=== PATIENT | male | born 1935 | race Caucasian/White ===

== ENCOUNTER 2023-07-07 16:29 | Inpatient (IN) ==
--- OUTSIDE RECORDS SUMMARY | 2023-07-07 16:37 | External Medical Summary | Summary of Care ---
Author Name Unknown Organization [facility] Address [address] [place] [address] Phone [phone] Care Team Providers Care Harvest Manager Name Role Phone Naseem Art MD Primary Care Provider + Reason for Visit * Reason Onset Date Comments Med Request 03/11/2023 Encounter Details Date Type Department Care Team Description 03/11/2023 Telephone General Internal Medicine [facility] [address] [facility] [place] [id number] Naseem Art MD 200 [place] [address] Med Request Allergies Active Allergy Reactions Severity Noted Date Comments Pollen Other (Please comment) 10/26/2019 sneezing documented as of this encounter (statuses as of 05/11/2023) Medications Medication Sig Dispensed Refills Start Date End Date Status docusate sodium (COLACE) 100 MG CapsuleIndications:S low transit constipation Take 1 Cap by mouth 3 times a day. 90 Cap 5 12/29/2015 Active Additional Information Patient taking differently:100 mg OralBID (.AM/PM), Reported on 09/04/2022 Acetaminophen 500 MG Oral Tablet (Tylenol)Indications :Primary osteoarthritis of both knees Take 2 Tabs by mouth 2 times a day. 100 Tab 0 04/04/2021 Active Additional Information Patient taking differently:1,000 mg IxpsN4P PRN, Reported on 02/12/2023 Levothyroxine Sodium 150 MCG Oral Tablet (Levoxyl)Indications :Hypothyroidism TAKE 1 TABLET BY MOUTH IN THE MORNING AT LEAST 30 MIN PRIOR TO BREAKFAST OR OTHER MEDS 90 Tablet 3 11/06/2022 Active metFORMIN HCl 500 MG Oral Tablet (Glucophage)Indicati ons:Type 2 diabetes mellitus with hemoglobin A1c goal of less than 7.0% (HCC) TAKE 1 TABLET BY MOUTH WITH BREAKFAST AND 1 WITH SUPPER DIRECTED 180 Tablet 3 03/04/2023 Active Alendronate Sodium 70 MG Oral Tablet (Fosamax)Indications :Age-related osteoporosis without current pathological fracture Take 1 Tablet by mouth once a week. with 8 oz. water 30 minutes before first meal of the day. 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 ICD-10 update of inactive term FAMILY HX-GI MALIGNANCY 01/08/2001 02/19/20 17 POSTABLAT HYPOTHYR NEC 4 History of colonic polyps 2014 Overview: 01/26/2011: diverticulosis, IH, repeat 2016 adenoma 2003, none 2005, repeat 2010 ICD-10 update of inactive term documented as of this encounter (statuses as of 05/11/2023) Immunizations Name Administration Dates Next Due COVID-19 mRNA, LNP-s, No Pre serve, 2-Dose Series (Moderna) 10/06/2020,08/26/2020 COVID-19, mRNA, LNP-s, PF, B ooster, 100mcg/0.5mg (Moderna) 06/12/2021 Covid-19, Mrna, Lnp-s, Pf, B ivalent, 30 Mcg, IM, 12 yrs and above ([employer]) 05/14/2022 H1N1 2009 Influenza, IM 08/24/2009 Pneumococcal Conjugate Vacc, 13 Valent (Prevnar) 05/31/2014 Pneumococcal Polysaccharide PPV23 (Pneumovax) 05/10/2004,01/08/2001 SEASONAL INFLUENZA, PF, 6 M & Above, IM , (FLULAVAL or FLUZONE) 04/02/2020,04/25/2018,04/26/2017 Seasonal Influenza, Quadriva lent Hd (Fluzone Hd) 04/04/2021 Seasonal Influenza, Quadriva lent Hd, 65+ Yrs 05/02/2022 Seasonal Influenza, Quadriva lent, No Preserve, IM 04/18/2016 Seasonal Influenza, Split, I IV3, With Preserve, Inj 04/07/2015,04/20/2014,05/12/2013,04/22,04/06/2011,04/05/2010,04/21/20 09,04/29/2008,05/28/2007,05/15/2006,1 ,05/10/2004,06/10/2003,06/05,06/05/2002,06/11/2001 04/07/2016 Seasonal Influenza, Trivalen t, Adjuvanted, 65+ yrs 04/10/2019 TD, Preservative Free 08/02/2008 TDAP (age 10 and older)(Boostrix) 06/28/2015 Varicella Zoster Vaccine (Adult) 015,05/31/2014(Deferred: Patient Refused) documented as of this encounter Social History Tobacco Use Types Packs/Day Years Used Date Smoking Tobacco: Former Cigarettes 1 20 Q uit: 07/22/1993 Pipe Smokeless Tobacco: Never Alcohol Use Standard Drinks/Week Comments Yes 0 (1 standard drink = 0.6 oz pur e alcohol) occ mixed drinks Alcohol Habits Answer Date Recorded How often do you have a drink containing alcohol ? 2-4 times a month 11/23/2020 How many drinks containing a lcohol do you have on a typical day when you are drinking? 1 or 2 11/23/2020 How often do you have six or more drinks on one occasion? Not asked 11/23/2020 Food Insecurity Answer Date Recorded Within the past 12 months, y ou worried that your food would run out before you got money to buy more. Never true 02/12/2023 Within the past 12 months, t he food you bought just didn't last and you didn't have money to get more. Never true 02/12/2023 Sex Assigned at Date Recorded Male 11/05/2018 1:03 PM E DT Job Start Date Occupation Industry Not on file Not on file Not on file documented as of this encounter Miscellaneous Notes * Telephone Encounter - Izzychristieshahrzad Stein CMA - 05/11/2023 3:25 PM EDT See TE from 03/27/23 patient having memory issues and needs f/u appt with Dr Art * Telephone Encounter - Maranda Talbot LPN - 03/13/2023 11:38 AM EDT Provider to address: n/a Reason for Call: Med Request Contact: Telephone Call Contact Type: Medication Outcome: Patient called. He doesn't have his medicine and will call us back. Total Time including non face to face (minutes): 5 * Telephone Encounter - Luann Cazares CPhT - 03/11/2023 1:57 PM EDT Pt is calling regarding a medication that they had discuss at his visit last week. Pt states he wasnever on the medication before, but he was supposed to start a new one. Pt is unsure of the name ofthe medication. He would like a call back to discuss which medications he should currently be on. Please advise Thank you, Thao Cazares Developer Analyst I [facility] ([facility]) (Formerly Telepharmacy) 03/11/2023,1:59 PM documented in this encounter Plan of Treatment Upcoming Encounters Date Type Specialty Care Team Description 06/22/2023 Office Visit Family Medicine Naseem Art MD [address] [place], [place] [address] 09/24/2023 Office Visit Internal Medicine Naseem Art MD [address] [place] [address] Health Maintenance Due Date Last Done Comments Zoster Vaccines (2 of 3) 07/11/2015 05/16/2015 Depression Screening 03/15/2023 03/15/2022 COVID-19 Vaccine ( season) 2023 05/14/2022, 06/12/2021, 10/06/2020, Additional history exists Influenza Vaccine (FLU shot) (#1) 2023 05/02/2022, 04/04/2021, 04/02/2020, Additional history exists Albumin/Creatinine Ratio 09/04/2023 023, 04/26/2021, 02/23/2020, Additional history exists B-12 09/04/2023 09/04/2022, 02/0 03/2022, 08/29/2020, Additional history exists Diabetic Foot Exam 09/04/2023 09/04/2022, 0 08/30/2021, 08/29/2020, Additional history exists HbA1c 09/04/2023 03/04/2023, 08/22, 03/15/2022, Additional history exists TSH 03/04/2024 03/04/2023, 08/22, 08/30/2021, Additional history exists DIABETES-EYE EXAM 03/27/2024 03/27/2023, , 03/27/2023, Additional history exists DXA Scan 10/08/2024 10/08/2022, 04/21, 05/06/2018, Additional history exists DTaP,Tdap,and Td Vaccines (2 - Td or Tdap) 06/28/2025 06/28/2015, 08/02/2008 Pneumococcal Vaccine: 65+ Years Completed 05/31/2014, 05/10/2004, 01/08/2001 VITAMIN D LEVEL ONCE IN A LIFETIME-USE SMARTSET# [id number] Completed 03/04/2023, 10/30/2018, 05/06/2018, Additional history exists GARDASIL-HPV IMMUNIZATION SERIES Aged Out No longer eligible based on patient's age to complete this topic Hepatitis B Aged Out No longer eligi ble based on patient's age to complete this topic MENINGOCOCCAL (MENACTRA/MENVEO) Aged Out No longer eligible based on patient's age to complete this topic documented as of this encounter Medical Devices Not on filedocumented as of this encounter Care Teams Harvest Manager Relationship Specialty Start Date End Date Naseem Art MD [address] [place] [address], [place] [address] PCP - General Internal Medicine 08/30/21 documented as of this encounter
--- OUTSIDE RECORDS SUMMARY | 2023-07-07 16:37 | External Medical Summary | Summary of Care ---
Author Name Unknown Organization [facility] Address [address] [place] [address] Phone [phone] Care Team Providers Care Ground Wirer Name Role Phone Naseem Art MD Primary Care Provider + Reason for Visit * Reason Onset Date Comments Test Results 03/05/2023 Encounter Details Date Type Department Care Team Description 03/05/2023 Telephone General Internal Medicine [facility] 200 [facility] [place] [address] Naseem Art MD [address] [place] [address] Test Results Allergies Active Allergy Reactions Severity Noted Date Comments Pollen Other (Please comment) 10/26/2019 sneezing documented as of this encounter (statuses as of 03/05/2023) Medications Medication Sig Dispensed Refills Start Date End Date Status docusate sodium (COLACE) 100 MG CapsuleIndications:S low transit constipation Take 1 Cap by mouth 3 times a day. 90 Cap 5 12/29/2015 Active Additional Information Patient taking differently:100 mg OralBID(AM/PM), Reported on 09/04/2022 Acetaminophen 500 MG Oral Tablet (Tylenol)Indications :Primary osteoarthritis of both knees Take 2 Tabs by mouth 2 times a day. 100 Tab 0 04/04/2021 Active Additional Information Patient taking differently:1,000 mg RniwS2P PRN, Reported on 02/12/2023 Levothyroxine Sodium 150 [...] as of this encounter (statuses as of 03/05/2023) Active Problems Problem Noted Date Hx of [...] as of this encounter (statuses as of 03/05/2023) Resolved Problems Problem Noted Date Resolved Date [...] as of this encounter (statuses as of 03/05/2023) Immunizations Name Administration Dates Next Due COVID-19 mRNA, LNP-s, No Pre serve, 2-Dose Series (Moderna) 10/06/2020,08/26/2020 Covid-19 Mrna, Lnp-s, No Pre serve, Booster (Moderna) 06/12/2021 Covid-19, Mrna, Lnp-s, Pf, B ivalent, 30 Mcg, IM, 12 yrs and above (Pfizer) 05/14/2022 H1N1 2009 Influenza, IM 08/24/2009 Pneumococcal Conjugate Vacc, 13 Valent (Prevnar) 05/31/2014 Seasonal Influenza, Quadriva lent Hd (Fluzone Hd) 04/04/2021 Seasonal Influenza, Quadriva lent Hd, 65+ Yrs 05/02/2022 Seasonal Influenza, Quadriva lent, No Preserve, 6 Mons & Above, IM 04/02/2020,04/25/2018,04/26/2017 Seasonal Influenza, Quadriva lent, No Preserve, IM 04/18/2016 Seasonal Influenza, Split, I IV3, With Preserve, Inj 04/07/2015,04/20/2014,05/12/2013,05/19,04/06/2011,04/05/2010,04/21/2009 ,04/29/2008,05/28/2007,05/15/2006 04/07/2016 Seasonal Influenza, Trivalen t, Adjuvanted, 65+ [...] encounter Miscellaneous Notes * Telephone Encounter - Ml Valle LPN - 03/05/2023 1:40 PM EDT Provider to address: n/a Reason for Call: Test Results Contact: Telephone Call Contact Type: Test Results Outcome: Patient made aware and verbalized understanding Total Time including non face to face (minutes): 15 Ml Valle LPN * Telephone Encounter - Ml Valle LPN - 03/05/2023 1:39 PM EDT ----- Message from Naseem Art MD sent at 03/05/2023 9:05 AM EDT ----- TSH is very high. Please confirm he didn't miss doses of thyroid med, is taking every morning on empty stomach 1 hour prior to food and 3 hours prior to any mvi/supplements. Increase levoxyl to 175 mcg and recheck tsh 4 weeks A1c higher, resume metformin as directed, recheck A1c 3 months Vit d a little low, suggest vit d3 1000 IU daily. This is otc, add to med list once aware documented in this encounter Plan of Treatment Upcoming Encounters Date Type Specialty Care Team Description 04/25/2023 Office Visit Dermatology Tawanna Vazquez PA-C [address] [place] [address] [place] [id number] 09/24/2023 Office Visit Internal Medicine Naseem Art MD [address] [place] [address], [place] [address] Health Maintenance Due Date Last Done Comments Zoster Vaccines (2 of 3) 07/11/2015 05/16/2015 *BISPHONATE OR OTHER ACCEPTABLE MEDICATION NEEDED FOR OSTEOPOROSIS (REFER TO SMARTSET #1146) 05/09/2020 DIABETES-EYE EXAM 03/09/2023 03/09/2022, , 03/09/2022, Additional history exists Depression Screening, Annual for Pts 12 and Over 03/15/2023 03/15/2022 Influenza Vaccine (FLU shot) (#1) 2023 05/02/2022, 04/04/2021, 04/02/2020, Additional history exists Albumin/Creatinine Ratio 09/04/2023 023, 04/26/2021, 02/23/2020, Additional history exists B-12 09/04/2023 09/04/2022, 02/0 03/2022, 08/29/2020, Additional history exists DIABETES-FOOT EXAM 09/04/2023 09/04/2022, 0 08/30/2021, 08/29/2020, Additional history exists HbA1c 09/04/2023 03/04/2023, 08/22, 03/15/2022, Additional history exists TSH 03/04/2024 03/04/2023, 08/22, 08/30/2021, Additional history exists DXA Scan 10/08/2024 10/08/2022, 04/21, 05/06/2018, Additional history exists DTaP,Tdap,and Td Vaccines (2 - Td or Tdap) 06/28/2025 06/28/2015, 08/02/2008 Pneumococcal Vaccine: 65+ Years Completed 05/31/2014, 05/10/2004, 01/08/2001 COVID-19 Vaccine Completed 05/14/2022, , 10/06/2020, Additional history exists VITAMIN D LEVEL ONCE IN A LIFETIME-USE SMARTSET# [id number] Completed 03/04/2023, 10/30/2018, 05/06/2018, Additional history exists [...] filedocumented as of this encounter Care Teams Ground Wirer Relationship Specialty Start Date End Date Naseem Art MD [facility] [place] [address] PCP - General Internal Medicine 08/30/21 documented as of this encounter
--- OUTSIDE RECORDS SUMMARY | 2023-07-07 16:37 | External Medical Summary | Summary of Care ---
Author Name Unknown Organization [facility] Address [address] [place] [address] Phone [phone] Care Team Providers Care Lockstitch Shoulder Joiner Name Role Phone Naseem Art MD Primary Care Provider + Reason for Visit * Reason Onset Date Comments FYI 03/27/2023 Encounter Details Date Type Department Care Team Description 03/27/2023 Telephone General Internal Medicine [facility] 200 [facility] [place] [phone] Naseem Art MD [address] [place] [address] FYI Allergies Active Allergy Reactions Severity Noted Date Comments Pollen Other (Please comment) 10/26/2019 sneezing documented as of this encounter (statuses as of 03/27/2023) Medications Medication Sig Dispensed Refills Start Date [...] Active Additional Information Patient taking differently:1,000 mg LilwS1G PRN, Reported on 02/12/2023 Levothyroxine Sodium 150 [...] as of this encounter (statuses as of 03/27/2023) Active Problems Problem Noted Date Hx of [...] as of this encounter (statuses as of 03/27/2023) Resolved Problems Problem Noted Date Resolved Date [...] as of this encounter (statuses as of 03/27/2023) Immunizations Name Administration Dates Next Due COVID-19 mRNA, LNP-s, No Pre serve, 2-Dose Series (Moderna) 10/06/2020,08/26/2020 Covid-19 Mrna, Lnp-s, No Pre serve, Booster (Moderna) 06/12/2021 Covid-19, Mrna, Lnp-s, Pf, B ivalent, 30 Mcg, IM, 12 yrs and above (Pfizer) 05/14/2022 H1N1 2009 Influenza, IM 08/24/2009 Pneumococcal Conjugate Vacc, 13 Valent (Prevnar) 05/31/2014 Seasonal Influenza, PF, 6 mo ns & Above, IM , (Flulaval) 04/02/2020,04/25/2018,04/26/2017 Seasonal Influenza, Quadriva lent Hd (Fluzone [...] encounter Miscellaneous Notes * Telephone Encounter - Rosalba Lai RN - 03/27/2023 4:41 PM EDT Call back from Rosa with protective services Reviewed above information She states there are no options due to pt being oriented Reviewed with Dr. Wbeber He reports pt was not agreeable to taxi service to be set up [place], Would you please be able to offer pt CM services? Possibly [employer] and [employer] referrals? Thank you! Sending to Dr. Webber and Dr. Art as well * Telephone Encounter - Rosalba Lai RN - 03/27/2023 4:23 PM EDT Timothy and Dr. Webber presented issue to this CM Discussed taxi service, but vehicle would be left here at clinic Pt has no nearby relatives or supports Advised pt could be referred to CM for non-emergent issues, follow up regarding any medical and social needs Call to [facility] protective services at [phone], radio division captain will call CM right back * Telephone Encounter - Anabella Lopez LPN - 03/27/2023 3:36 PM EDT FYI: Patient at office today to see [facility] as a new patient, patient was brought by two staff members from [facility] due to patient getting lost. He is not from the area and was not sure where to findthe office. Patient was brought down to Family Practice due to concern for confusion. Spoke with patient in detail he was alert and oriented, able to tell me where he was, who he was, his and who his PCP was. He understood that he got lost and explained he has never been to this area before. He was able totell me that he was here to see the eye doctor because he was having floaters in his R eye. Patientdid urinate in his pants, explained that he normally carries a urinal with him everywhere because when he has to go he must do it at that moment or he will pee in his pants. Denies urinary urgency, pressure, burning. Only reports some incontinence. BP: 166/94 (patient states he was very overwhelmed from getting lost and was worked up) HR: 84 regular T: 97.4 BS: [address] [place] [address] Art reports patient did just move for the first time in 30 years and not good with directions. Would like patient scheduled in first available to discuss event. Reported thisto Sheron in [facility] to have patient schedule at check out with Dr. Art. documented in this encounter Plan of Treatment Upcoming Encounters Date Type Specialty Care Team Description 04/25/2023 Office Visit Dermatology Tawanna Vazquez PA-C [address] [place] [address] [place] [address] 06/22/2023 [facility] [address] [facility] [place] [address] 09/24/2023 [facility] 200 [facility] [place] [address] Health Maintenance Due Date Last Done Comments Zoster Vaccines (2 of 3) 07/11/2015 05/16/2015 Depression Screening, Annual for Pts 12 and Over 03/15/2023 03/15/2022 Influenza Vaccine (FLU shot) (#1) 2023 05/02/2022, 04/04/2021, 04/02/2020, Additional history exists Albumin/Creatinine Ratio 09/04/2023 023, 04/26/2021, 02/23/2020, Additional history exists B-12 09/04/2023 09/04/2022, 03/2022, 08/29/2020, Additional history exists Diabetic Foot [...] D LEVEL ONCE IN A LIFETIME-USE SMARTSET# [id number] Completed 03/04/2023, 10/30/2018, 05/06/2018, Additional history exists [...] filedocumented as of this encounter Care Teams Lockstitch Shoulder Joiner Relationship Specialty Start Date End Date Naseem Art MD [address] [place] [address], [place] [address] PCP - General Internal Medicine 08/30/21 documented as of this encounter
--- OUTSIDE RECORDS SUMMARY | 2023-07-07 16:37 | External Medical Summary | Summary of Care ---
Author Name Unknown Organization [facility] Address [address] [place] [address] Phone [phone] Care Team Providers Care Behavioral Geneticist Name Role Phone Naseem Art MD Primary Care Provider + Reason for Visit * Reason Onset Date Comments Med Request 03/11/2023 Encounter Details Date Type Department Care Team Description 03/11/2023 Telephone General Internal Medicine [facility] 200 [facility] [place], [place] [phone] Naseem Art MD [address] [place] [address] Med Request Allergies Active Allergy Reactions Severity Noted Date Comments Pollen Other (Please comment) 10/26/2019 sneezing documented as of this encounter (statuses as of 03/13/2023) Medications Medication Sig Dispensed Refills Start Date [...] Active Additional Information Patient taking differently:1,000 mg [id number] PRN, Reported on 02/12/2023 Levothyroxine Sodium 150 [...] as of this encounter (statuses as of 03/13/2023) Active Problems Problem Noted Date Hx of [...] as of this encounter (statuses as of 03/13/2023) Resolved Problems Problem Noted Date Resolved Date DM type 2 causing eye disease 03/01/2022 DM type 2 with diabetic peripheral neuropathy 08/29/2020 History of colon polyps 04/05/2015 09/04/19 Overview: 02/08/2016: inflammatory polyp sigmoid colon 01/26/2011: [...] as of this encounter (statuses as of 03/13/2023) Immunizations Name Administration Dates Next Due COVID-19 mRNA, LNP-s, No Pre serve, 2-Dose Series (Moderna) 10/06/2020,08/26/2020 Covid-19 Mrna, Lnp-s, No Pre serve, Booster (Moderna) 06/12/2021 Covid-19, Mrna, Lnp-s, Pf, B ivalent, 30 Mcg, IM, 12 yrs and above (Pfizer) 05/14/2022 H1N1 2009 Influenza, IM 08/24/2009 Pneumococcal Conjugate Vacc, 13 Valent (Prevnar) 05/31/2014 Pneumococcal Polysaccharide PPV23 (Pneumovax) 05/10/2004,01/08/2001 Seasonal Influenza, PF, 6 mo ns & [...] encounter Miscellaneous Notes * Telephone Encounter - Maranda Talbot LPN [...] on. Please advise Thank you, Thao Cazares Environmental Sustainability Manager I [facility] ([facility]) (Formerly Telepharm[facility]) 03/11/2023,1:59 PM documented in this encounter Plan of Treatment Upcoming Encounters Date Type Specialty Care Team Description 04/25/2023 Office Visit Dermatology Tawanna Vazquez PA-C [address] [place] [address] [place] [address] 09/24/2023 Office Visit Internal Medicine Naseem Art MD [address] [place] [address] [place] [address] Health Maintenance Due Date Last Done Comments Zoster Vaccines (2 of 3) 07/11/2015 05/16/2015 DIABETES-EYE EXAM 03/09/2023 03/09/2022, , 03/09/2022, Additional history exists Depression Screening, Annual for Pts 12 and Over 03/15/2023 03/15/2022 Influenza Vaccine (FLU shot) (#1) 2023 05/02/2022, 04/04/2021, 04/02/2020, Additional history exists Albumin/Creatinine Ratio 09/04/2023 023, 04/26/2021, 02/23/2020, Additional history exists B-12 09/04/2023 09/04/2022, 03/2022, 08/29/2020, Additional history exists DIABETES-FOOT EXAM [...] D LEVEL ONCE IN A LIFETIME-USE SMARTSET# [id number] Completed 03/04/2023, 10/30/2018, 05/06/2018, Additional history exists [...] filedocumented as of this encounter Care Teams Behavioral Geneticist Relationship Specialty Start Date End Date Naseem Art MD [address] [place] [address], [place] [address] PCP - General Internal Medicine 08/30/21 documented as of this encounter
--- OUTSIDE RECORDS SUMMARY | 2023-07-07 16:37 | External Medical Summary | Summary of Care ---
Author Name Unknown Organization [facility] Address [address] [place] [address] Phone [phone] Care Team Providers Care Dean For Student Affairs Name Role Phone Naseem Art MD Primary Care Provider + Reason for Visit * Reason Onset Date Comments Med Request 03/11/2023 Encounter Details Date Type Department Care Team Description 03/11/2023 Telephone General Internal Medicine [facility] [address] [facility] [place], [place] [id number] Naseem Art MD [address] [place] [address] Med Request Allergies Active Allergy Reactions Severity Noted Date Comments Pollen Other (Please comment) 10/26/2019 sneezing documented as of this encounter (statuses as of 03/11/2023) Medications Medication Sig Dispensed Refills Start Date [...] Active Additional Information Patient taking differently:1,000 mg [id number] PRN, Reported on 02/12/2023 Levothyroxine Sodium 150 [...] as of this encounter (statuses as of 03/11/2023) Active Problems Problem Noted Date Hx of [...] as of this encounter (statuses as of 03/11/2023) Resolved Problems Problem Noted Date Resolved Date [...] as of this encounter (statuses as of 03/11/2023) Immunizations Name Administration Dates Next Due COVID-19 [...] encounter Miscellaneous Notes * Telephone Encounter - Luann Cazares, advanced quality engineer - 03/11/2023 1:57 PM EDT Pt is [...] on. Please advise Thank you, Thao Cazares [facility] ([facility]) 03/11/2023,1:59 PM documented in this encounter Plan of Treatment Upcoming Encounters Date Type Specialty Care Team Description 04/25/2023 Office Visit Dermatology Tawanna Vazquez PA-C [address] [place] [address] [place] [phone] 09/24/2023 Office Visit Internal Medicine Naseem Art MD [address] [place] [address] [place] [address] Health Maintenance Due Date Last Done Comments Zoster Vaccines (2 of 3) 07/11/2015 05/16/2015 DIABETES-EYE EXAM 03/09/2023 03/09/2022, , 03/09/2022, Additional history exists Depression Screening, Annual for Pts 12 and Over 03/15/2023 03/15/2022 Influenza Vaccine (FLU shot) (#1) 2023 05/02/2022, 04/04/2021, 04/02/2020, Additional history exists Albumin/Creatinine Ratio 09/04/2023 023, 04/26/2021, 02/23/2020, Additional history exists B-12 09/04/2023 09/04/2022, 02/03/2022, 08/29/2020, Additional history exists DIABETES-FOOT EXAM 09/04/2023 [...] D LEVEL ONCE IN A LIFETIME-USE SMARTSET# [id number] Completed 03/04/2023, 10/30/2018, 05/06/2018, Additional history exists [...] filedocumented as of this encounter Care Teams Dean For Student Affairs Relationship Specialty Start Date End Date Naseem Art MD [address] [place] [address], [place] [address] PCP - General Internal Medicine 08/30/21 documented as of this encounter
--- OUTSIDE RECORDS SUMMARY | 2023-07-07 16:37 | External Medical Summary | Summary of Care ---
Author Name Unknown Organization [facility] Address [address] [place] [address] Phone [phone] Care Team Providers Care Programming Director Name Role Phone Naseem Art MD Primary Care Provider + Reason for Visit * Reason Onset Date Comments FYI 03/27/2023 Encounter Details Date Type Department Care Team Description 03/27/2023 Telephone General Internal Medicine [facility] [address] [facility] [place] [phone] Naseem Art MD [address] [place] [address] FYI Allergies Active Allergy Reactions Severity Noted Date Comments Pollen Other (Please comment) 10/26/2019 sneezing documented as of this encounter (statuses as of 03/28/2023) Medications Medication Sig Dispensed Refills Start Date [...] Active Additional Information Patient taking differently:1,000 mg [id number] PRN, Reported on 02/12/2023 Levothyroxine Sodium 150 [...] as of this encounter (statuses as of 03/28/2023) Active Problems Problem Noted Date Hx of [...] as of this encounter (statuses as of 03/28/2023) Resolved Problems Problem Noted Date Resolved Date [...] as of this encounter (statuses as of 03/28/2023) Immunizations Name Administration Dates Next Due COVID-19 mRNA, LNP-s, No Pre serve, 2-Dose Series ([employer]) 10/06/2020,08/26/2020 Covid-19 Mrna, Lnp-s, No Pre serve, Booster ([employer]) 06/12/2021 Covid-19, Mrna, Lnp-s, Pf, B ivalent, 30 Mcg, IM, 12 yrs and above ([employer] 05/14/2022 H1N1 2009 Influenza, IM 08/24/2009 Pneumococcal [...] encounter Miscellaneous Notes * Telephone Encounter - Drea Gaona RN - 03/28/2023 1:04 PM EDT Follow-up Routine Attempted Phone Call First Attempt Call Outcome Unable to Leave Message-mailbox is full Plan To attempt another outreach I will continue to reach out to patient to try to get him scheduled with Dr. Art as well. Thank you for the referral. * Telephone Encounter - Rosalba Lai RN - 03/27/2023 4:41 PM EDT Call back from Rosa with protective services Reviewed above information She states there are no options due to pt being oriented Reviewed with Dr. Webber He reports pt was not agreeable to [...] any medical and social needs Call to [employer] protective services at [phone], fiberglass bonding machine tender will call CM right back * Telephone Encounter - Anabella Lopez LPN - 03/27/2023 3:36 PM EDT FYI: Patient at office today to see Ophth as a new patient, patient was brought by two staff members from [facility] due to patient getting lost. He is [...] HR: 84 regular T: 97.4 BS: [address] Art reports patient did just move for the first time in 30 years and not good with directions. Would like patient scheduled in first available to discuss event. Reported thisto Sheron in [facility] to have patient schedule at check out with Dr. Art. documented in this encounter Plan of Treatment Upcoming Encounters Date Type Specialty Care Team Description 04/25/2023 Office Visit Dermatology Tawanna Vazquez PA-C [address] [place] [address] [place] [address] 06/22/2023 Office Visit Family Medicine Naseem Art MD [address] [facility] [address] 09/24/2023 Office Visit Internal Medicine Naseem Art MD [address] [place] [address] Health Maintenance Due Date Last Done Comments [...] D LEVEL ONCE IN A LIFETIME-USE SMARTSET# [id number] Completed 03/04/2023, 10/30/2018, 05/06/2018, Additional history exists [...] filedocumented as of this encounter Care Teams Programming Director Relationship Specialty Start Date End Date Naseem Art MD [address] [place] [address] PCP - General Internal Medicine 08/30/21 documented as of this encounter
--- OUTSIDE RECORDS SUMMARY | 2023-07-07 16:37 | External Medical Summary ---
Author Name Unknown Address Unknown Organization : Laboratory Report Ordering Provider Test Date Status LUANN BARRAGAN 03/27/2023 15:05:49 Final Observation Date Value Abnormality Reference (Units ) Status Glucose Point of Care 03/27/2023 15:05:49 206 Above high normal 70-120 (mg/dL) Final Performing Location
--- OUTSIDE RECORDS SUMMARY | 2023-07-07 16:37 | External Medical Summary | Summary of Care ---
Author Name Unknown Organization [facility] Address [address] [place] [address] Phone [phone] Care Team Providers Care Traffic Or System Dispatcher Name Role Phone Naseem Art MD Primary Care Provider + Reason for Visit * Reason Comments Eye Problem Encounter Details Date Type Department Care Team Description 03/27/2023 Office Visit Ophthalmology, [place] [facility] [place] [address] Christiano Webber DO [facility] [place] [phone] Visual distortions of shape and size* Allergies Active Allergy Reactions Severity Noted Date Comments Pollen Other (Please comment) 10/26/2019 sneezing documented as of this encounter (statuses as of 04/10/2023) Medications Medication Sig Dispensed Refills Start Date [...] Active Additional Information Patient taking differently:1,000 mg [id number] PRN, Reported on 02/12/2023 Levothyroxine Sodium 150 [...] as of this encounter (statuses as of 04/10/2023) Active Problems Problem Noted Date Hx of [...] as of this encounter (statuses as of 04/10/2023) Resolved Problems Problem Noted Date Resolved Date [...] as of this encounter (statuses as of 04/10/2023) Immunizations Name Administration Dates Next Due COVID-19 [...] on file documented as of this encounter Progress Notes * Christiano Webber, DO - 03/27/2023 3:28 PM EDT 03/27/2023 [facility] Note HPI: Rajesh Jett is a 87 year old pt who presents to the eye clinic today as a new patient tome for evaluation. 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 Base Eye Exam Visual Acuity (Snellen - Linear) Right Left Dist cc 20/40 -2 LP Tonometry (Tonopen, 3:19 PM) Right Left Pressure 19 17 Pupils Pupils Dark Light Shape React APD Right PERRL 4 3 Round Brisk None Left PERRL 4 3 Round Brisk None Visual Pinzon (Counting fingers) Right Left Full Restrictions Total superior temporal, inferior temporal, superior nasal, inferior nasal deficiencies Slit Lamp and Fundus Exam External Exam Right Left External Normal Normal Slit Lamp Exam Right Left Lids/Lashes Normal Normal Conjunctiva/Sclera White and quiet White and quiet Cornea Clear Clear Anterior Chamber Deep and quiet Deep and quiet Iris Round and reactive Round and reactive Lens Posterior chamber intraocular lens Posterior chamber intraocular lens Fundus Exam Right Left Vitreous Normal Posterior vitreous detachment Disc Normal Normal C/D Ratio 0.3 0.25 Macula Drusen Drusen Vessels Normal Normal Periphery Nevus 1.5 dd without orange pigment just inferiornasal to optic nerve Normal Date: 03/27/23 OCT RNFL: OD - 101, Full OS - 73, S thinning - poor quality Macula: OD - Drusen, no changes OS - Drusen, no changes, fovea off center A/P: Vision loss, left eye -Light perception only vision in left eye w/o rAPD and exam evidence to explain severity of vision loss Patient adamant floater in left eye to blame - explained that this is not the case for level of vision loss ?Non-organic vision loss Patient's responses to multiple examination techniques were not sensible. For example, when placinga large white dot in front of the patient with both eyes open on the chart to look at in the distance, he could not describe seeing a white dot. He noted "flickering" lights and pictures on the wall. Overall he is oriented to time, person and place. I do not think he is acutely confused. However I question his safety. I did involve family practice and case management who assisted in attempting toprovide this patient transportation home today for safety. I even offered to pay for transportation. He outright refused. We were instructed by protective services that because he is oriented, no tin tional options were available. Updates to PCP/case management forthcoming. RTC TBD- ivonne carter only or sooner prn. Christiano Webber DO 03/27/23 I spent a total of Greater than 55 mins (exact time 90 mins) on the date of service in preparation,delivery, and documentation of the care provided to Rajesh Jett excluding any time spent in the performance of separately billed services. documented in this encounter Nursing Notes * EUN Edward - 03/27/2023 3:14 PM EDT Pt states he is seeing a floater in his left eye and is now only seeing a creamy bright light. Pt states he has had this problem for about 18 months. Pt is concerned this will happen to his other eye. documented in this encounter Plan of Treatment Upcoming Encounters Date Type Specialty Care Team Description 04/24/2023 Nurse Only Ophthalmology Nurse Handy Mendenhall [address] [place] [address] 04/25/2023 Office Visit Dermatology Tawanna Vazquez PA-C [address] [place] [address] [place] [address] 06/22/2023 Office Visit Family Medicine Naseem Art MD [address] [place] [address] 09/24/2023 Office Visit Internal Medicine Naseem Art MD [address] [place] [address] Health Maintenance Due Date Last Done Comments Zoster Vaccines (2 of 3) 07/11/2015 05/16/2015 Depression Screening 03/15/2023 03/15/2022 Influenza Vaccine (FLU shot) (#1) [...] D LEVEL ONCE IN A LIFETIME-USE SMARTSET# [id number] Completed 03/04/2023, 10/30/2018, 05/06/2018, Additional history exists [...] Not on filedocumented as of this encounter Procedures Procedure Name Priority Date/Time Associated Diagnosis Comments GLUCOSE METER, POINT OF CARE NANY 03/27/2023 3:05 PM EDT documented in this encounter Results * (ABNORMAL) GLUCOSE METER, POINT OF CARE (03/27/2023 3:05 PM EDT) Glucose Meter 206(H) 70 - 120 mg/dL 03/28/2023 8:20 AM EDT [facility] 45-01 Blood 03/27/2023 3:05 PM EDT 03/28/2023 8:20 AM EDT Christiano Webber DO LAB POINT OF CARE TE ST DOCKED DEVICE UNSOLICITED RESULTS [facility] 45-[address] [place] [address] documented in this encounter Visit Diagnoses Diagnosis Visual distortions of shape and size- Primary documented in this encounter Care Teams Traffic Or System Dispatcher Relationship Specialty Start Date End Date Naseem Art MD [address] [place] [address] PCP - General Internal Medicine 08/30/21 documented as of this encounter
--- OUTSIDE RECORDS SUMMARY | 2023-07-07 16:37 | External Medical Summary | Summary of Care ---
Author Name Unknown Organization [facility] Address [address] [facility] [address] Phone [phone] Care Team Providers Care Cryolite Recovery Operator Name Role Phone Naseem Art MD Primary Care Provider + Reason for Visit * Reason Comments Eye Problem Encounter Details Date Type Department Care Team Description 03/27/2023 Office Visit Ophthalmology, [place] 21 [facility] [place] [address] Christiano Webber DO [address] [facility] [place], [place] [phone] Visual distortions of shape and size* Allergies [...] Active Additional Information Patient taking differently:1,000 mg [id number] PRN, Reported on 02/12/2023 Levothyroxine Sodium 150 [...] DO - 03/27/2023 3:28 PM EDT 03/27/2023 [facility] Note HPI: Rajesh Jett is [...] 04/25/2023 Office Visit Dermatology Tawanna Vazquez PA-C [address] [place] [address] [place] [address] 06/22/2023 [facility] [address] [place] [address] 09/24/2023 [facility] [address] [place] [address] Health Maintenance Due Date Last Done Comments [...] D LEVEL ONCE IN A LIFETIME-USE SMARTSET# [id number] Completed 03/04/2023, 10/30/2018, 05/06/2018, Additional history exists [...] Not on filedocumented as of this encounter Visit Diagnoses Diagnosis Visual distortions of shape and size- Primary documented in this encounter Care Teams Cryolite Recovery Operator Relationship Specialty Start Date End Date Naseem Art MD [address] [place] [address] [place] [address] PCP - General Internal Medicine 08/30/21 documented as of this encounter
--- OUTSIDE RECORDS SUMMARY | 2023-07-07 16:37 | External Medical Summary | Summary of Care ---
Author Name Unknown Organization [facility] Address [address] [place] [address] Phone [phone] Care Team Providers Care Resort Keeper Name Role Phone Naseem Hernandez MD Primary Care Provider + Reason for Referral * Evaluate & Treat - Unlimited Visits (Within 30 days (routine)) - Authorized Specialty Diagnoses / Procedures Referred By Contac t Referred To Contact Ophthalmology Diagnoses Type 2 diabetes mellitus with hemoglobin A1c goal of less than 7.0% ([facility]) Naseem Hernandez MD [facility] [place] [id number] Referral ID Status Reason Start Date Expiration Date Visits Requested Visits Authorized [id number] Authorized Specialty Services Required 03/04/2023 999 999 Question Answer Referral Priority Within 30 days (routine) Does patient want glasses or contact check exam included? Yes Comments Diabetic Eye Exam Reason for Visit * Reason Comments Follow Up 6 month follow up. P atient denied any new concerns. Patient states he is currently not taking his medication as directed due to overwhelmed with moving. Encounter Details Date Type Department Care Team Description 03/04/2023 Office Visit General Internal Medicine [place] [facility] [address] [place] [id number] Naseem Hernandez MD [address] [place] [address] Type 2 diabetes mellitus with hemoglobin A1c goal of less than 7.0% ([facility])*; Acquired hypothyroidism; Age-related osteoporosis without current pathological fracture; Diabetic peripheral neuropathy (HCC); Vitreous floaters of left eye; Stress at home Allergies Active Allergy Reactions Severity Noted Date Comments Pollen Other (Please comment) 10/26/2019 sneezing documented as of this encounter (statuses as of 03/05/2023) Medications Medication Sig Dispensed Refills Start Date End Date Status docusate sodium (COLACE) 100 MG CapsuleIndications: Slow transit constipation Take 1 Cap by mouth 3 times a day. 90 Cap 5 12/29/2015 Active Additional Information Patient taking differently:100 mg OralBID(AM/PM), Reported on 09/04/2022 Acetaminophen 500 MG Oral Tablet (Tylenol)Indication s:Primary osteoarthritis of both knees Take 2 Tabs by mouth 2 times a day. 100 Tab 0 04/04/2021 Active Additional Information Patient taking differently:1,000 mg [id number] PRN, Reported on 02/12/2023 Levothyroxine Sodium 150 MCG Oral Tablet (Levoxyl)Indication s:Hypothyroidism TAKE 1 TABLET BY MOUTH IN THE MORNING AT LEAST 30 MIN PRIOR TO BREAKFAST OR OTHER MEDS 90 Tablet 3 11/06/2022 Active metFORMIN HCl 500 MG Oral Tablet (Glucophage)Indicat ions:Type 2 diabetes mellitus with hemoglobin A1c goal of less than 7.0% (HCC) TAKE 1 TABLET BY MOUTH WITH BREAKFAST AND 1 WITH SUPPER DIRECTED 180 Tablet 3 03/04/2023 Active Alendronate Sodium 70 MG Oral Tablet (Fosamax)Indication s:Age-related osteoporosis without current pathological fracture Take 1 Tablet by mouth once a week. with 8 oz. water 30 minutes before first meal of the day. Remain upright for 30 min after taking tablet 4 Tablet 1 03/04/2023 Active DAILY MULTIVITAMIN PO TABSIndications:DM type 2, goal A1c below 7 0 06/30/2009 3 Discontinu ed(Patient preference /discontin uation) VITAMIN D3 1000 UNITS PO CAPS 1 daily 0 3 Discontinu ed(Patient preference /discontin uation) Calcium Carbonate-Vitamin D 500-125 MG-UNIT Oral Tablet Take by mouth daily. 0 04/18/2016 3 Discontinu ed(Patient preference /discontin uation) Sildenafil Citrate (VIAGRA) 25 MG TabletIndications:I mpotence of organic origin take 1/2 tablet by mouth if needed 5 Tab 2 10/04/2016 3 Discontinu ed(Patient preference /discontin uation) aspirin enteric coated 81 MG TBEC Take 1 Tablet by mouth in the morning. 100 Tab 3 12/23/2016 3 Discontinu ed(Patient preference /discontin uation) diphenhydrAMINE HCl (Sleep) 25 MG Oral CapsuleIndications: takes 1/2 capsule at bedtime for sleep Take 12.5 mg by mouth once. Indications: takes 1/2 capsule at bedtime for sleep 0 3 Discontinu ed(Patient preference /discontin uation) RELION ULTRA THIN LANCETS 30G MISCIndications:Typ e 2 diabetes mellitus with hemoglobin A1c goal of less than 7.0% (HCC) USE TO TEST TWICE DAILY Dx Code E11.9 100 Each 1 12/22/2018 3 Discontinu ed(Patient preference /discontin uation) Diclofenac Sodium 1 % External Gel (Voltaren)Indicatio ns:Primary osteoarthritis of both knees Apply to affected areas 1-2 times daily 0 04/04/2021 3 Discontinu ed(Patient preference /discontin uation) Ibuprofen 200 MG Oral Capsule Take 1 Capsule by mouth every 4 hours as needed. 0 3 Discontinu ed(Patient preference /discontin uation) Glucose Blood In Vitro StripIndications:Ty pe 2 diabetes mellitus with hemoglobin A1c goal of less than 7.0% (HCC) USE TO CHECK GLUCOSE ONCE DAILY. 150 Strip 4 07/26/2021 3 Discontinu ed(Patient preference /discontin uation) metFORMIN HCl 500 MG Oral Tablet (Glucophage)Indicat ions:Type 2 diabetes mellitus with hemoglobin A1c goal of less than 7.0% (HCC) TAKE 1 TABLET BY MOUTH WITH BREAKFAST AND 1 WITH SUPPER DIRECTED 180 Tablet 3 10/15/2022 3 Discontinu ed(Refill) documented as of this encounter (statuses as [...] Overview: 01/26/2011: diverticulosis, IH, repeat 2016 adenoma 2002, none 2006, repeat 2010 ICD-10 update of inactive term [...] Pneumococcal Polysaccharide PPV23 (Pneumovax) 05/10/2004,01/08/2001 Seasonal Influenza, Quadriva lent Hd (Fluzone Hd) [...] Q uit: 07/22/1993 Pipe Smokeless Tobacco: Never Tobacco Cessation:Counseling Given: Not Answered Alcohol Use Standard Drinks/Week Comments Yes 0 [...] on file documented as of this encounter Last Filed Vital Signs Vital Sign Reading Time Taken Comments Blood Pressure 110/64 03/04/2023 3:16 PM EDT Pulse 74 03/04/2023 3:16 PM EDT Temperature 36.4 C (97.6 F) 03/04/2023 3:16 PM ED T Respiratory Rate - - Oxygen Saturation 94% 03/04/2023 3:16 PM EDT Inhaled Oxygen Concentration - - Weight 93 kg (205 lb) 03/04/2023 3:16 PM EDT Height 195.6 cm (6' 5") 03/04/2023 3:16 PM EDT Body Mass Index 24.31 03/04/2023 3:16 PM EDT documented in this encounter Progress Notes * Naseem Hernandez MD - 03/04/2023 3:36 PM EDT Chief Complaint Patient presents with Follow Up 6 month follow up. Patient denied any new concerns. Patient states he is currently not taking his medication as directed due to overwhelmed with moving. SUBJECTIVE: Rajesh Jett is a 87 year old male with PMH as below who presents for follow up diabetic neuropathy, DM, hypothyroidism. No cp, sob, juarez. Sadly, his lease was not renewed after 30 years!! Just moved to new residence in [place], still getting used to it. He stopped all meds but levothyroxine. Due to see optho, has chronic floater left eye told nothing to to do. Using cane for abnormal gait, numbness in legs which is chronic. Has a walker if needed. No recent falls. Mood is ok, some stress with move, but handling ok Patient Active Problem List Diagnosis Code History of tobacco use Z87.891 DIVERTICULOSIS OF COLON K57.30 Type 2 diabetes mellitus with hemoglobin A1c goal of less than 7.0% ([facility]) E11.9 Abnormality of gait R26.9 DNR (do not resuscitate) Z66 Hypothyroidism E03.9 Osteoporosis M81.0 Diabetic peripheral neuropathy ([facility]) E11.42 Intermediate stage nonexudative age-related macular degeneration of both eyes H35.3132 Hx of nonmelanoma skin cancer Z85.828 Current Outpatient Medications Medication Sig Dispense Refill docusate sodium (COLACE) 100 MG Capsule Take 1 Cap by mouth 3 times a day. (Patient taking differently: Take 1 Capsule by mouth in the morning and 1 Capsule before bedtime.) 90 Cap 5 Acetaminophen 500 MG Oral Tablet (Tylenol) Take 2 Tabs by mouth 2 times a day. (Patient taking differently: Take 2 Tablets by mouth every 6 hours as needed.) 100 Tab 0 Levothyroxine Sodium 150 MCG Oral Tablet (Levoxyl) TAKE 1 TABLET BY MOUTH IN THE MORNING AT LEAST 30 MIN PRIOR TO BREAKFAST OR OTHER MEDS 90 Tablet 3 metFORMIN HCl 500 MG Oral Tablet (Glucophage) TAKE 1 TABLET BY MOUTH WITH BREAKFAST AND 1 WITH SUPPER DIRECTED 180 Tablet 3 Alendronate Sodium 70 MG Oral Tablet (Fosamax) Take 1 Tablet by mouth once a week. with 8 oz. water 30 minutes before first meal of the day. Remain upright for 30 min after taking tablet 4 Tablet1 No current facility-administered medications for this visit. Review of patient's allergies indicates: Allergen Reactions Pollen Other (Please comment) sneezing Health Maintenance Due Topic Date Due Zoster Vaccines (2 of 3) 07/11/2015 *BISPHONATE OR OTHER ACCEPTABLE MEDICATION NEEDED FOR OSTEOPOROSIS (REFER TO SMARTSET #1146) Never done HbA1c 03/04/2023 DIABETES-EYE EXAM 03/09/2023 Depression Screening, Annual for Pts 12 and Over 03/15/2023 ROS: CONSTITUTIONAL: No fevers, sweats, or chills EYE: No recent significant change in vision PULMONARY: No cough, sputum, or hemoptysis, No wheezing, No rales, No shortness of breath and No recent change in breathing CARDIOVASCULAR: No chest pain, No shortness of breath, No dyspnea on exertion, No orthopnea, No paroxysmal nocturnal dyspnea, No edema, No palpitations and No syncope ALL OTHER SYSTEMS NEGATIVE I reviewed social, PMH, PSH, and family history and updated where needed. Social History Socioeconomic History Marital status: Single Spouse name: Not on file Number of children: 0 Years of education: 16 Highest education level: Not on file Occupational History Occupation: retired from [employer] Tobacco Use Smoking status: Former Packs/day: 1.00 Years: 20.00 Pack years: 20.00 Types: Pipe, Cigarettes Quit date: 07/22/1993 Years since quittin.6 Smokeless tobacco: Never Vaping Use Vaping Use: Never used Substance and Sexual Activity Alcohol use: Yes Comment: occ mixed drinks Drug use: No Sexual activity: Yes Partners: Female Other Topics Concern Service Not Asked Blood Transfusions Not Asked Caffeine Concern Not Asked Occupational Exposure Not Asked Hobby Hazards Not Asked Sleep Concern No Stress Concern Not Asked Weight Concern Not Asked Special Diet Not Asked Back Care Not Asked Exercise Not Asked Bike Helmet Not Asked Seat Belt Yes Self-Exams Not Asked Social History Narrative born in [place], [place], back in [employer] in 1970, retired 1996 Rajesh Trujillo Fernandojessie reports falls or difficulties with ambulation. Please see documentaion 04/18/2011 for history and plan. 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 ICD-10 update of inactive term Past Surgical History: Procedure Laterality Date COLONOSCOPY, DIAGNOSTIC (RECTUM) about 1994 Colonoscopy, normal COLONOSCOPY, DIAGNOSTIC (RECTUM) 01/26/2011 Diverticulosis, IH, repeat in 5 years COLONOSCOPY, DIAGNOSTIC (RECTUM) 02/08/2016 inflammatory tissue on bx, diverticulosis, repeat per PCP/[facility] COLONOSCOPY, SURGERY REFERRAL OP 08/15/2005 4 rectal polyps, all hyperplastic, repeat in 5 years COLORECTAL CANCER SCREEN; COLON 07/22/2002 repeat in 2005, single sub 1.0 cm adenoma found ascending colon, Dr Melvin, [facility] OTHER (INFORMATION) ACT 112 SIGNED 03/09/22 REMOVE CATARACT, INSERT LENS PROSTH 07/22/2013 [place] both eyes REMOVE TONSILS & ADENOIDS, UNDER 12 07/22/1954 Tonsillectomy/Adenoids,<12 Y/O VASC ANKLE BRACHIAL INDEX 09/13/2006 normal Family History Problem Relation Age of Onset Cancer Mother colon and liver Cancer Grandfather (Maternal) bladder cancer Heart Disorder Father Stroke Father TIA's and major stroke Cancer Brother cancer, testicular, lung, smoker OBJECTIVE: PHYSICAL EXAM: BP 110/64 | Pulse 74 | Temp 36.4 C (97.6 F) | Ht 1.956 m (6' 5") | Wt 93 kg (205 lb) | SpO2 94%| BMI 24.31 kg/m | BSA 2.25 m General: alert, healthy and no distress Head: Normocephalic, No masses, lesions, or abnormalities Eye Exam: conjunctiva are pink and non-injected, sclera clear Ears: External ears normal, TM's Normal, mild cerumen bilaterally Heart: regular rate & rhythm, no murmur, no gallops, PMI non-displaced, S-1 normal and S-2 normal Lungs: normal respiratory rate and rhythm, lungs clear to auscultation Psych: normal affect, no flight of ideas or tangential thought, good eye contact, no pressured speech Neuro: stands on own, to table w/o aid, walks with walker wide based gait I reviewed last lipid, gfr, cbc, lft, urine micro, ASSESSMENT: E11.9 Type 2 diabetes mellitus with hemoglobin A1c goal of less than 7.0% ([facility]) (primary encounter diagnosis) E03.9 Acquired hypothyroidism M81.0 Age-related osteoporosis without current pathological fracture E11.42 Diabetic peripheral neuropathy (HCC) H43.392 Vitreous floaters of left eye F43.9 Stress at home PLAN: Type 2 diabetes mellitus with hemoglobin A1c goal of less than 7.0% ([facility]) (Primary) - COMPREHENSIVE METABOLIC PANEL; Future; Expected date: 03/04/2023 - HEMOGLOBIN A1C; Future; Expected date: 03/04/2023 - metFORMIN HCl 500 MG Oral Tablet (Glucophage); TAKE 1 TABLET BY MOUTH WITH BREAKFAST AND 1 WITH SUPPER DIRECTED - OPHTHALMOLOGY(DIABETES-EXTENDED)REFERRAL OP - LDL CHOLESTEROL (DIRECT MEASURE); Future; Expected date: 03/04/2023 Labs today optho soon Resume metformin Acquired hypothyroidism - TSH; Future; Expected date: 03/04/2023 cnt levothyroxine Age-related osteoporosis without current pathological fracture - 25-HYDROXY VITAMIN D; Future; Expected date: 03/04/2023 - Alendronate Sodium 70 MG Oral Tablet (Fosamax); Take 1 Tablet by mouth once a week. with 8 oz. water 30 minutes before first meal of the day. Remain upright for 30 min after taking tablet Discussed last dexa, fall/fx risk, he want to resume The potential side effects of this medication have been discussed with the patient. Call if any significant problems with these are experienced. Diabetic peripheral neuropathy (HCC) Has neurology in past Cont cane, has walker Follow Vitreous floaters of left eye optho as above Stress at home With move, seems handling ok Follow Follow Up: Return in about 6 months (around 09/04/2023), or if symptoms worsen or fail to improve, for Labs Today. | For: Labs Today Naseem Hernandez MD documented in this encounter Nursing Notes * Romie Stein CMA - 03/04/2023 3:12 PM EDT Chief Complaint Patient presents with Follow Up 6 month follow up. Patient denied any new concerns. documented in this encounter Miscellaneous Notes * Addendum Note - Naseem Hernandez MD - 03/05/2023 9:05 AM EDTAddended by: NASEEM HERNANDEZ on: 03/05/2023 09:05 AM Modules accepted: Orders documented in this encounter Plan of Treatment Upcoming Encounters Date Type Specialty Care Team Description 04/25/2023 Office Visit Dermatology Tawanna Vazquez PA-C [address] [place] [address] [place] [address] 09/24/2023 Office Visit Internal Medicine Naseem Hernandez MD [address] [place] [address] [place] [id number] Scheduled Orders Name Type Priority Associated Diagnoses Orde r Schedule TSH Lab Routine Acquired hypothyroidism Expected: 04/05/2023 (Approximate), Expires: 03/05/2024 HEMOGLOBIN A1C Lab Routine Type 2 diabetes mellitus with hemoglobin A1c goal of less than 7.0% (HCC) Expected: 06/05/2023 (Approximate), Expires: 03/05/2024 25-HYDROXY VITAMIN D Lab Routine Age-related osteoporosis without current pathological fracture Expected: 06/05/2023 (Approximate), Expires: 03/05/2024 Scheduled Referrals Name Type Priority Associated Diagnoses Orde r Schedule OPHTHALMOLOGY(DI ABETES-EXTENDED) REFERRAL OP Referral Within 30 days (routine) Type 2 diabetes mellitus with hemoglobin A1c goal of less than 7.0% (HCC) Ordered: 03/04/2023 Health Maintenance Due Date Last Done Comments [...] D LEVEL ONCE IN A LIFETIME-USE SMARTSET# [id number] Completed 03/04/2023, 10/30/2018, 05/06/2018, Additional history exists [...] Not on filedocumented as of this encounter Results * LDL CHOLESTEROL (DIRECT MEASURE) (03/04/2023 3:44 PM EDT) LDL Cholesterol (Direct Measure) 128 <=129 mg/dL 03/05/2023 12:58 AM EDT [facility] Comment: LDL Cholesterol Reference Ranges (mg/dL): <70 Target level for high risk ASCVD patient <100 Optimal for general population 100-129 Near optimal for general population 130-159 Borderline high 160-189 High >=190 Very high Blood Venous blood specimen / Unknown Venipuncture / Unknown 03/04/2023 3:44 PM EDT 03/04/2023 3:45 PM EDT Naseem Hernandez MD LAB BLOOD ORDERA BLES [facility] [address] [place] [address] * 25-HYDROXY VITAMIN D (03/04/2023 3:44 PM EDT) 25-Hydroxy Vitamin D 25 >19 ng/mL 03/05/2023 1:38 AM EDT [facility] Blood Venous blood specimen / Unknown Venipuncture / Unknown 03/04/2023 3:44 PM EDT 03/04/2023 3:45 PM EDT Narrative [facility] - 03/05/2023 1:38 AM EDT Deficient: <20 ng/mL Insufficient: 20-29 ng/mL Recommended/Optimum:30-50 ng/mL Vitamin D intoxication is rare. If suspicious of Vitamin D toxicity, evaluation of serum Calcium and PTH is recommended. Naseem Hernandez MD LAB BLOOD ORDERA BLES Performing Organization Address City/[facility]/ZIP Co de Phone Number [facility] [address] [place] [address] * (ABNORMAL) TSH (03/04/2023 3:44 PM EDT) [facility] TSH 39.80(H) 0.27 - 4.20 uIU/mL 03/05/2023 1:38 AM EDT [facility] Blood Venous blood specimen / Unknown Venipuncture / Unknown 03/04/2023 3:44 PM EDT 03/04/2023 3:45 PM EDT Naseem Hernandez MD LAB BLOOD ORDERA BLES Performing Organization Address [facility] de Phone Number [facility]ATORY [facility] [address] [place] [address] * (ABNORMAL) HEMOGLOBIN A1C (03/04/2023 3:44 PM EDT) [facility] Hemoglobin A1C 7.5(H) 4.0 - 5.6 % 03/05/2023 1:10 AM EDT [facility] Comment:The use of HbA1c to monitor glycemic status is based on normal hemoglobin and HbA composition. This test should not be used in patients with abnormal hemoglobin that affects the half life of the red blood cell or the in vivo glycation rates. Estimated Average Glucose 169(H) <126 mg/dL 03/05/2023 1:10 AM EDT [facility] Blood Venous blood specimen / Unknown Venipuncture / Unknown 03/04/2023 3:44 PM EDT 03/04/2023 3:45 PM EDT Naseem Hernandez MD LAB BLOOD ORDERA BLES Performing Organization Address [facility] Co de Phone Number [facility]ATORY [facility] [address] [place] [address] * (ABNORMAL) COMPREHENSIVE METABOLIC PANEL (03/04/2023 3:44 PM EDT) [facility] BUN 15 6 - 20 mg/dL 03/04/2023 4:[address] Creatinine 1.2 0.6 - 1.2 mg/dL 03/04/2023 4:[address] Estimated Glomerular Filtration Rate 61 >=60 mL/min 03/04/2023 4:42 PM [facility] 56 Comment:eGFR is calculated b ased on the CKD-EPI 2020 equation Sodium 138 135 - 146 mmol/L 03/04/2023 4:[address] Potassium 4.6 3.5 - 5.1 mmol/L 03/04/2023 4:[address] Chloride 100 98 - 107 mmol/L 03/04/2023 4:[address] CO2 27 22 - 32 mmol/L 03/04/2023 4:[address] Anion Gap 11 7 - 15 mmol/L 03/04/2023 4:[address] Glucose 158(H) 70 - 120 mg/dL 03/04/2023 4:[address] Albumin 4.4 3.8 - 5.0 g/dL 03/04/2023 4:[address] AST 28 10 - 50 U/L 03/04/2023 4:[address] Alkaline Phosphatase 65 35 - 130 U/L 03/04/2023 4:[address] Bilirubin, Total 0.3 <=1.2 mg/dL 03/04/2023 4:[address] Calcium 9.5 8.4 - 10.2 mg/dL 03/04/2023 4:[address] Protein 6.4 6.0 - 8.3 g/dL 03/04/2023 4:42 PM [facility] 56 ALT 25 10 - 50 U/L 03/04/2023 4:42 PM [facility] 56 Blood Venous blood specimen / Unknown Venipuncture / Unknown 03/04/2023 3:44 PM EDT 03/04/2023 3:45 PM EDT Naseem Hernandez MD LAB BLOOD ORDERA BLES [facility] [address] [place] [address] [place] [address] documented in this encounter Visit Diagnoses Diagnosis Type 2 diabetes mellitus with hemoglobin A1c goal of less than 7.0% (HCC)- Primary Acquired hypothyroidism Unspecified hypothyroidism Age-related osteoporosis without current pathological fracture Senile osteoporosis Diabetic peripheral neuropathy (HCC) Type II or unspecified type diabetes mellitus with neurological manifestations, not stated as uncontrolled Vitreous floaters of left eye Stress at home Unspecified family circumstance documented in this encounter Care Teams Resort Keeper Relationship Specialty Start Date End Date [facility]em [facility] MD [address] [facility] [address] PCP - General Internal Medicine 08/30/21 documented as of this encounter
--- OUTSIDE RECORDS SUMMARY | 2023-07-07 16:37 | External Medical Summary | Summary of Care ---
Author Name Unknown Organization [facility] Address [address] [place] [address] Phone [phone] Care Team Providers Care Electrical Machinist Name Role Phone Naseem Art MD Primary Care Provider + Encounter Details Date Type Department Care Team Description 04/09/2023 Weigh Machine OperatorBlindstitch Machine Operator Practice [facility] [place] [address] [place] [address] Drea Gaona, PARDEEP Medical home patient encounter* Allergies Active Allergy Reactions Severity Noted Date Comments Pollen Other (Please comment) 10/26/2019 sneezing documented as of this encounter (statuses as of 04/09/2023) Medications Medication Sig Dispensed Refills Start Date [...] Active Additional Information Patient taking differently:1,000 mg [id number] PRN, Reported on 02/12/2023 Levothyroxine Sodium 150 [...] as of this encounter (statuses as of 04/09/2023) Active Problems Problem Noted Date Hx of [...] as of this encounter (statuses as of 04/09/2023) Resolved Problems Problem Noted Date Resolved Date [...] diverticulosis, IH, repeat 2016 adenoma 2003, none 2006, repeat 2010 ICD-10 update of inactive term documented as of this encounter (statuses as of 04/09/2023) Immunizations Name Administration Dates Next Due COVID-19 [...] as of this encounter Progress Notes * Drea Gaona RN - 04/09/2023 2:24 PM EDT Follow-up Routine Attempted Phone Call Third Attempt Call Outcome Unable to Leave Message Plan To send letter documented in this encounter Plan of Treatment Upcoming Encounters Date Type Specialty Care Team Description 04/24/2023 Nurse Only Ophthalmology Abdirashid, Nurse Handy [place] [address] [place] [address] 04/25/2023 Office Visit Dermatology Tawanna Vazquez PA-C [address] [place] [address] [place] [address] 06/22/2023 Office Visit Family Medicine Naseem Art MD 200 [facility] [place] [address] 09/24/2023 [facility] 200 [facility] [place], [place] [address] Health Maintenance Due Date Last Done Comments Zoster Vaccines (2 of 3) 07/11/2015 05/16/2015 Depression Screening 03/15/2023 03/15/2022 Influenza Vaccine (FLU shot) (#1) 2023 05/02/2022, 04/04/2021, 04/02/2020, Additional history exists Albumin/Creatinine Ratio 09/04/2023 023, 04/26/2021, 02/23/2020, Additional history exists B-12 09/04/2023 09/04/2022, 02/03/2022, 08/29/2020, Additional history exists Diabetic Foot Exam [...] D LEVEL ONCE IN A LIFETIME-USE SMARTSET# [id number] Completed 03/04/2023, 10/30/2018, 05/06/2018, Additional history exists [...] as of this encounter Visit Diagnoses Diagnosis Medical home patient encounter- Primary Other specified examination documented in this encounter Care Teams Electrical Machinist Relationship Specialty Start Date End Date Naseem Art MD [address] [place] [address], [place] [address] PCP - General Internal Medicine 08/30/21 documented as of this encounter
--- OUTSIDE RECORDS SUMMARY | 2023-07-07 16:37 | External Medical Summary | Summary of Care ---
Author Name Unknown Organization [facility] Address [address] [place] [address] Phone [phone] Care Team Providers Care Student Ministries Director Name Role Phone Naseem Art MD Primary Care Provider + Encounter Details Date Type Department Care Team (Late st Contact Info) Description 05/31/2023 Local Az Truck DriverRetail Customer Service Specialist Practice [facility] [address] [place] [address] Drea Peres, PARDEEP [address] [place] [address] Medical home patient encounter* Allergies Active Allergy Reactions Criticality Noted Date Comments Pollen Other (Please comment) 10/26/2019 sneezing documented as of this encounter (statuses as of 05/31/2023) Medications Medication Sig Dispensed Refills Start Date [...] Active Additional Information Patient taking differently:1,000 mg [id number] PRN, Reported on 02/12/2023 Levothyroxine Sodium 150 [...] as of this encounter (statuses as of 05/31/2023) Active Problems Problem Noted Date Diagnosed Date Hx of nonmelanoma skin cancer 10/25/2022 Overview: basal cell carcinoma (L cutaneous upper lip 10/11, R medial cheek 10/11) 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 ICD-10 update of inactive term FAMILY HX-GI MALIGNANCY 01/08/200101/21 POSTABLAT HYPOTHYR NEC 12/20 History of colonic polyps Overview: 01/26/2011: diverticulosis, IH, repeat 2016 adenoma 2003, none 2005, repeat 2010 ICD-10 update of inactive term documented as of this encounter (statuses as of 05/31/2023) Immunizations Name Administration Dates Next Due COVID-19 mRNA, LNP-s, No Pre serve, 2-Dose Series (Moderna) 10/06/2020,08/26/2020 COVID-19, mRNA, LNP-s, PF, B ooster, 100mcg/0.5mg (Moderna) 06/12/2021 Covid-19, Mrna, Lnp-s, Pf, B ivalent, 30 Mcg, IM, 12 yrs and above (Pfizer) 05/14/2022 H1N1 2009 Influenza, IM 08/24/2009 Pneumococcal Conjugate Vacc, 13 Valent (Prevnar) 05/31/2014 SEASONAL INFLUENZA, PF, 6 M & Above, [...] oz pur e alcohol) occ mixed drinks AUDIT-C Answer Date Recorded Q1: How often do you have a drink containing alc ohol? 2-4 times a month 11/23/2020 Q2: How many drinks containi ng alcohol do you have on a typical day when you are drinking? 1 or 2 11/23/2020 Q3: How often do you have si x or more drinks on one occasion? Not asked 11/23/2020 PHQ-2 Answer Date Recorded PHQ Adult Total Score 0 03/15/2022 Hunger Vital Sign Answer Date Recorded Within the past 12 months, y ou worried that your food would run out before you got the money to buy more. Never true 02/13/20 23 Within the past 12 months, t he food you bought just didn't last and you didn't have money to get more. Never true 02/12/2023 Sex and Gender Information Value Date Recorded Sex Assigned at Male 11/05/2018 1:03 PM EDT Gender Identity Male 11/05/2018 1:03 PM EDT Sexual Orientation Straight 11/05/2018 1: 03 PM EDT Job Start Date Occupation Industry Not on file Not on file Not on file documented as of this encounter Progress Notes * Drea Peres RN - 05/31/2023 11:03 AM EST Follow-up Routine Attempted Phone Call First Attempt Call Outcome Unable to Leave Message Plan To attempt another outreach documented in this encounter Plan of Treatment Upcoming Encounters Date Type Department Care Team (Late st Contact Info) Description 06/22/2023 1:00 PM EST Office Visit Family Practice [facility] [address] [place] [address] Naseem Art MD 200 [facility] [place], [place] [address] 09/24/2023 3:00 PM EST Office Visit General Internal Medicine [facility] 200 [facility] [place] [address] Naseem Art MD 200 [facility] [place] [address] Health Maintenance Due Date Last Done Comments Hepatitis B (1 of 3 - Risk 3-dose series) 1996 Zoster Vaccines (2 of 3) 07/11/2015 05/16/2015 Depression Screening 03/15/2023 03/15/2022 COVID-19 Vaccine ( season) 2023 05/14/2022, 06/12/2021, 10/06/2020, Additional history exists Influenza Vaccine (FLU shot) (#1) 2023 05/02/2022, 04/04/2021, 04/02/2020, Additional history exists Albumin/Creatinine Ratio 09/04/20232 023, 04/26/2021, 02/23/2020, Additional history exists B-12 09/04/2023 09/04/2022, 02/0 03/2022, 08/29/2020, Additional history exists Diabetic Foot Exam 09/04/2023 09/04/2022, 0 08/30/2021, 08/29/2020, Additional history exists HbA1c 09/04/2023 03/04/2023, 08/22, 03/15/2022, Additional history exists TSH 03/04/2024 03/04/2023, 08/22, 08/30/2021, Additional history exists Diabetic Eye Exam 03/27/2024 03/27/2023, , 03/27/2023, Additional history exists DXA Scan 10/08/2024 10/08/2022, 04/21, 05/06/2018, Additional history exists DTaP,Tdap,and Td Vaccines (2 - Td or Tdap) 06/28/2025 06/28/2015, 08/02/2008 Pneumococcal Vaccine: 65+ Years Completed 05/31/2014, 05/10/2004, 01/08/2001 VITAMIN D LEVEL ONCE IN A LIFETIME-USE SMARTSET# [id number] Completed 03/04/2023, 10/30/2018, 05/06/2018, Additional history exists [...] examination documented in this encounter Care Teams Student Ministries Director Relationship Specialty Start Date End Date Naseem Art MD 200 [facility] [address] PCP - General Internal Medicine 08/30/21 documented as of this encounter
--- OUTSIDE RECORDS SUMMARY | 2023-07-07 16:37 | External Medical Summary | Summary of Care ---
Author Name Unknown Organization [facility] Address [address] [facility] [address] Phone [phone] Care Team Providers Care Concrete Pipe Making Machine Operator Name Role Phone Naseem Art MD Primary Care Provider + Reason for Visit * Reason Onset Date Comments Scheduling 04/01/2023 Encounter Details Date Type Department Care Team Description 04/01/2023 Telephone OphthalmologyEdgardo 21 [facility] [place] [address] Christiano Webber DO [facility] [place] [address] Scheduling Allergies Active Allergy Reactions Severity Noted Date Comments Pollen Other (Please comment) 10/26/2019 sneezing documented as of this encounter (statuses as of 04/01/2023) Medications Medication Sig Dispensed Refills Start Date [...] Active Additional Information Patient taking differently:1,000 mg [id number] PRN, Reported on 02/12/2023 Levothyroxine Sodium 150 [...] as of this encounter (statuses as of 04/01/2023) Active Problems Problem Noted Date Hx of [...] as of this encounter (statuses as of 04/01/2023) Resolved Problems Problem Noted Date Resolved Date [...] as of this encounter (statuses as of 04/01/2023) Immunizations Name Administration Dates Next Due COVID-19 [...] encounter Miscellaneous Notes * Telephone Encounter - SARITA Levine - 04/01/2023 1:37 PM EDT Multiple attempts made to contact patient - goes straight to voicemail but voicemail box is full sono ability to leave message. Letter mailed to patient's home with appointment details on 04/24 @ 10:30am with nurse for visual field per Dr. Webber @ [facility]. Patient's eye's will NOT bedilated at this visit. SARITA Levine 04/01/2023 1:38 PM documented in this encounter Plan of Treatment Upcoming Encounters Date Type Specialty Care Team Description 04/04/2023 Home Visit Family Medicine Drea Yee, Community Health Site Director [address] [place] [address] 04/24/2023 Nurse Only Ophthalmology Abdirashid, Nurse Oph Enma [address] [place] [address] 04/25/2023 Office Visit Dermatology Tawanna Vazquez PA-C [address] [place] [address] [place] [address] 06/22/2023 Office Visit Family Medicine Naseem Art MD 200 [place] [address] 09/24/2023 Office Visit Internal Medicine Naseem Art MD 200 [place] [address] Health Maintenance Due Date Last Done Comments [...] D LEVEL ONCE IN A LIFETIME-USE SMARTSET# [id number] Completed 03/04/2023, 10/30/2018, 05/06/2018, Additional history exists [...] filedocumented as of this encounter Care Teams Concrete Pipe Making Machine Operator Relationship Specialty Start Date End Date Naseem Art MD [address] [place] [address], [place] [address] PCP - General Internal Medicine 08/30/21 documented as of this encounter
--- OUTSIDE RECORDS SUMMARY | 2023-07-07 16:37 | External Medical Summary | Summary of Care ---
Author Name Unknown Organization [facility] Address [address] [place] [address] Phone [phone] Care Team Providers Care Transfusion Nurse Name Role Phone Naseem Art MD Primary Care Provider + Reason for Visit * Reason Onset Date Comments Med Request 03/11/2023 Encounter Details Date Type Department Care Team Description 03/11/2023 Telephone General Internal Medicine [facility] 200 [facility] [place], [place] [id number] Naseem Art MD 200 [place] [address] Med Request Allergies Active Allergy Reactions Severity [...] Active Additional Information Patient taking differently:1,000 mg [id number] PRN, Reported on 02/12/2023 Levothyroxine Sodium 150 [...] Notes * Telephone Encounter - Luann Cazares, soda tester - 03/11/2023 1:57 PM EDT Pt is [...] on. Please advise Thank you, Thao Cazares Train Reservation Clerk I [facility] (Former[facility]) 03/11/2023,1:59 PM documented in this encounter Plan of Treatment Upcoming Encounters Date Type Specialty Care Team Description 04/25/2023 Office Visit Dermatology Tawanna Vazquez PA-C [address] [place] [address] [place] [id number] 09/24/2023 Office Visit Internal Medicine Naseem Art MD [address] [place] [address] [place] [address] Health Maintenance Due Date Last Done Comments [...] D LEVEL ONCE IN A LIFETIME-USE SMARTSET# [id number] Completed 03/04/2023, 10/30/2018, 05/06/2018, Additional history exists [...] filedocumented as of this encounter Care Teams Transfusion Nurse Relationship Specialty Start Date End Date Naseem Art MD [address] [place] [address], [place] [address] PCP - General Internal Medicine 08/30/21 documented as of this encounter
--- OUTSIDE RECORDS SUMMARY | 2023-07-07 16:37 | External Medical Summary | Summary of Care ---
Author Name Unknown Organization [facility] Address [address] [place] [address] Phone [phone] Care Team Providers Care Rover Tender Name Role Phone Naseem Art MD Primary Care Provider + Encounter Details Date Type Department Care Team (Late st Contact Info) Description 06/07/2023 1:30 PM EST Home Visit Care Coordination and Integration [address] [place] [address] Kateryna Baig, Community Health Manufacture Specialist [address] [place], [place] [id number] Allergies Active Allergy Reactions Criticality Noted Date Comments Pollen Other (Please comment) 10/26/2019 sneezing documented as of this encounter (statuses as of 06/12/2023) Medications Medication Sig Dispensed Refills Start Date [...] Active Additional Information Patient taking differently:1,000 mg [id number] PRN, Reported on 02/12/2023 Levothyroxine Sodium 150 [...] as of this encounter (statuses as of 06/12/2023) Active Problems Problem Noted Date Diagnosed Date [...] as of this encounter (statuses as of 06/12/2023) Resolved Problems Problem Noted Date Diagnosed Date [...] as of this encounter (statuses as of 06/12/2023) Immunizations Name Administration Dates Next Due COVID-19 [...] as of this encounter Progress Notes * Kateryna Baig, Community Health Manufacture Specialist - 06/12/2023 7:57 AM EST Telemedicine visit: No Community Health Manufacture Specialist (BERTO) documentation: Pt. Was not at home. BERTO left garage door technician on door with information to call CM. documented in this encounter Plan of Treatment Upcoming Encounters Date Type Department Care Team (Late st Contact Info) Description 06/22/2023 1:00 PM EST Office Visit Family Practice [facility] 132 [facility] [place] [address] Naseem Art MD 200 [facility] [place] [address] 09/24/2023 3:00 PM EST Office Visit General Internal Medicine [facility] 200 [facility] [place] [address] Naseem Art MD 200 [facility] [place] [address] Health Maintenance Due Date Last Done Comments [...] Additional history exists DXA Scan 10/08/2024 10/08/2022, 09/20, 05/09/2020, Additional history exists DTaP,Tdap,and Td Vaccines (2 - Td or Tdap) 06/28/2025 06/28/2015, 08/02/2008 Pneumococcal Vaccine: 65+ Years Completed 05/31/2014, 05/10/2004, 01/08/2001 VITAMIN D LEVEL ONCE IN A LIFETIME-USE SMARTSET# [id number] Completed 03/04/2023, 10/30/2018, 05/06/2018, Additional history exists GARDASIL-HPV IMMUNIZATION SERIES Aged Out No longer eligible based on patient's age to complete this topic MENINGOCOCCAL (MENACTRA/MENVEO) Aged Out No longer eligible based on patient's age to complete this topic documented as of this encounter Medical Devices Not on filedocumented as of this encounter Care Teams Rover Tender Relationship Specialty Start Date End Date Naseem Art MD 200 [place] [place] [address] PCP - General Internal Medicine 08/30/21 documented as of this encounter
--- OUTSIDE RECORDS SUMMARY | 2023-07-07 16:37 | External Medical Summary | Summary of Care ---
Author Name Unknown Organization [facility] Address [address] [place] [address] Phone [phone] Care Team Providers Care Steel Rigger Name Role Phone Naseem Art MD Primary Care Provider + Reason for Visit * Reason Onset Date Comments Test Results 03/05/2023 Encounter Details Date Type Department Care Team Description 03/05/2023 Telephone General Internal Medicine [facility] 200 [facility] [place] [address] Naseem Art MD 200 [place] [address] Test Results Allergies Active Allergy Reactions Severity [...] Active Additional Information Patient taking differently:1,000 mg [id number] PRN, Reported on 02/12/2023 Levothyroxine Sodium 150 [...] encounter Miscellaneous Notes * Telephone Encounter - Romie Stein CMA - 03/05/2023 1:44 PM EDT Entered in error * Telephone Encounter - Romie Stein CMA - 03/05/2023 1:42 PM EDT ----- Message from Naseem Art [...] Office Visit Dermatology Tawanna Vazquez PA-C [address] [place] [address] [place] [address] 09/24/2023 Office Visit Internal Medicine Naseem Art MD [address] [place] [address] [place] [address] Health Maintenance Due Date Last Done Comments [...] D LEVEL ONCE IN A LIFETIME-USE SMARTSET# [id number] Completed 03/04/2023, 10/30/2018, 05/06/2018, Additional history exists [...] filedocumented as of this encounter Care Teams Steel Rigger Relationship Specialty Start Date End Date Naseem Art MD 200 [place] [address] PCP - General Internal Medicine 08/30/21 documented as of this encounter
--- OUTSIDE RECORDS SUMMARY | 2023-07-07 16:38 | External Medical Summary ---
Author Name Unknown Address Unknown Organization K01:LABORATORY [facility] - [address] [place] [address] Laboratory Report Ordering Provider Test Date Status DAVID BAIRD 03/04/2023 15:44:53 Final Observation Date Value Abnormality Reference (Units ) Status LDL, (direct) 03/04/2023 15:44:53 128 <=129 (mg/dL) Final LDL Cholesterol Reference Ra nges (mg/dL):
<70 Target level for high risk ASCVD patient
<100 Optimal for general population
100-129 Near optimal for general population
130-159 Borderline high
160-189 High
>=190 Very high Performing Location LABORATORY [facility] - [address] [place] [address]
--- OUTSIDE RECORDS SUMMARY | 2023-07-07 16:38 | External Medical Summary | Summary of Care ---
Author Name Unknown Organization [facility] Address [address] [place] [address] Phone [phone] Care Team Providers Care Buttermilk Drier Operator Name Role Phone Naseem Art MD Primary Care Provider + Reason for Visit * Reason Comments Follow Up The pt stated he is here to follow up about recent test results. Encounter Details Date Type Department Care Team Description 02/12/2023 Office Visit General Internal Medicine [facility] [address] [place] [address] Yahaira Reynoso MD [address] [place] [address] Type 2 diabetes mellitus with hemoglobin A1c goal of less than 7.0% ([facility])*; Hx of nonmelanoma skin cancer; Other specified hypothyroidism Allergies Active Allergy Reactions Severity Noted Date Comments Pollen Other (Please comment) 10/26/2019 sneezing documented as of this encounter (statuses as of 02/12/2023) Medications Medication Sig Dispensed Refills Start Date End Date Status DAILY MULTIVITAMIN PO TABSIndications:DM type 2, goal A1c below 7 0 06/30/2009 Active VITAMIN D3 1000 UNITS PO CAPS 1 daily 0 Active docusate sodium (COLACE) 100 MG CapsuleIndications:S low transit constipation Take 1 Cap by mouth 3 times a day. 90 Cap 5 12/29/2015 Active Additional Information Patient taking differently:100 mg OralBID(AM/PM), Reported on 09/04/2022 Calcium Carbonate-Vitamin D 500-125 MG-UNIT Oral Tablet Take by mouth daily. 0 04/18/2016 Active Sildenafil Citrate (VIAGRA) 25 MG TabletIndications:Im potence of organic origin take 1/2 tablet by mouth if needed 5 Tab 2 10/04/2016 Active aspirin enteric coated 81 MG TBEC Take 1 Tablet by mouth in the morning. 100 Tab 3 12/23/2016 Active diphenhydrAMINE HCl (Sleep) 25 MG Oral CapsuleIndications:t akes 1/2 capsule at bedtime for sleep Take 12.5 mg by mouth once. Indications: takes 1/2 capsule at bedtime for sleep 0 Active RELION ULTRA THIN LANCETS 30G MISCIndications:Type 2 diabetes mellitus with hemoglobin A1c goal of less than 7.0% (HCC) USE TO TEST TWICE DAILY Dx Code E11.9 100 Each 1 12/22/2018 Active Additional Information Patient not taking.Reported on 02/12/2023 Diclofenac Sodium 1 % External Gel (Voltaren)Indication s:Primary osteoarthritis of both knees Apply to affected areas 1-2 times daily 0 04/04/2021 Active Acetaminophen 500 MG Oral Tablet (Tylenol)Indications :Primary osteoarthritis of both knees Take 2 Tabs by mouth 2 times a day. 100 Tab 0 04/04/2021 Active Additional Information Patient taking differently:1,000 mg [id number] PRN, Reported on 02/12/2023 Ibuprofen 200 MG Oral Capsule Take 1 Capsule by mouth every 4 hours as needed. 0 Active Glucose Blood In Vitro StripIndications:Typ e 2 diabetes mellitus with hemoglobin A1c goal of less than 7.0% (HCC) USE TO CHECK GLUCOSE ONCE DAILY. 150 Strip 4 07/26/2021 Active Additional Information Patient not taking.Reported on 02/12/2023 metFORMIN HCl 500 MG Oral Tablet (Glucophage)Indicati ons:Type 2 diabetes mellitus with hemoglobin A1c goal of less than 7.0% (HCC) TAKE 1 TABLET BY MOUTH WITH BREAKFAST AND 1 WITH SUPPER DIRECTED 180 Tablet 3 10/15/2022 Active Additional Information Patient not taking.Reported on 02/12/2023 Levothyroxine Sodium 150 MCG Oral Tablet (Levoxyl)Indications :Hypothyroidism TAKE 1 TABLET BY MOUTH IN THE MORNING AT LEAST 30 MIN PRIOR TO BREAKFAST OR OTHER MEDS 90 Tablet 3 11/06/2022 Active documented as of this encounter (statuses as of 02/12/2023) Active Problems Problem Noted Date Hx of [...] Diabetes Taxonomy. ICD-10 update of inactive term DIVERTICULOSIS OF COLON 10/16/2005 Advance directive on file 11/27/2004 Overview: 05/19/2012: POLST form signed History of tobacco use Overview: 20 pack years, stopped in 1993 Abnormality of gait documented as of this encounter (statuses as of 02/12/2023) Resolved Problems Problem Noted Date Resolved Date [...] 15 Overview: ICD-10 update of inactive term Type 2 diabetes mellitus wit h hemoglobin [...] as of this encounter (statuses as of 02/12/2023) Immunizations Name Administration Dates Next Due COVID-19 [...] Sign Reading Time Taken Comments Blood Pressure 122/72 02/12/2023 3:40 PM EDT Pulse 72 02/12/2023 3:40 PM EDT Temperature - - Respiratory Rate - - Oxygen Saturation 97% 02/12/2023 3:40 PM EDT Inhaled Oxygen Concentration - - Weight - - Height 195.6 cm (6' 5") 02/12/2023 3:40 PM EDT Body Mass Index - - documented in this encounter Progress Notes * Yahaira Reynoso MD - 02/12/2023 3:28 PM EDT SUBJECTIVE: Rajesh Jett is a 87 year old male. Chief Complaint Patient presents with Follow Up The pt stated he is here to follow up about recent test results. HPI: Patient made this appointment for discussion of test results. He is status post Mohs surgery in November by Dr. Patiño, discussed that his skin cancer had been treated with this procedure and to keep appointment with Dermatology in April. Last seen in the clinic in August by Son Hernandez PA-C; labs reviewed .States recently he had to move out of his apartment to a different apartment as his landlord would not renew his leads. He is not been taking the metformin, advised to resume the same and keep scheduled appointment with PCP in February TSH Results: Lab Results Component Value Date/Time TSH - [facility] 2.69 09/04/2022 10:25 AM TSH - [facility] 0.27 08/30/2021 03:03 PM TSH - [facility] 1.75 04/26/2021 02:15 PM TSH - [facility] 0.23 (L) 06/03/2020 01:59 PM TSH - [facility] 0.18 (L) 02/23/2020 01:09 PM TSH - [facility] 0.96 05/07/2019 07:30 AM Hemoglobin AIC Results: Lab Results Component Value Date/Time HEMOGLOBIN A1C - [facility] 6.8 (H) 09/04/2022 10:25 AM HEMOGLOBIN A1C - [facility] 6.8 (H) 03/15/2022 09:01 AM HEMOGLOBIN A1C - [facility] 6.8 (H) 08/30/2021 03:03 PM HEMOGLOBIN A1C - [facility] 6.0 (H) 02/23/2020 01:09 PM HEMOGLOBIN A1C - [facility] 6.3 (H) 10/26/2019 10:17 AM HEMOGLOBIN A1C - [facility] 6.0 (H) 05/07/2019 07:30 AM HEMOGLOBIN A1C POCT - [facility] 6.1 (H) 12/23/2020 02:20 PM Patient Active Problem List Diagnosis Code Advance directive on file Z78.9 History of tobacco use Z87.891 DIVERTICULOSIS OF COLON K57.30 Type 2 diabetes mellitus with hemoglobin A1c goal of less than 7.0% (HCC) E11.9 Abnormality of gait R26.9 DNR (do not resuscitate) Z66 Hypothyroidism E03.9 Osteoporosis M81.0 Diabetic peripheral neuropathy (HCC) E11.42 Intermediate stage nonexudative age-related macular degeneration of both eyes H35.3132 Hx of nonmelanoma skin cancer Z85.828 Current Outpatient Medications Medication Sig Dispense Refill VITAMIN D3 1000 UNITS PO CAPS 1 daily docusate sodium (COLACE) 100 MG Capsule Take 1 Cap by mouth 3 times a day. (Patient taking differently: Take 1 Capsule by mouth in the morning and 1 Capsule before bedtime.) 90 Cap 5 Sildenafil Citrate (VIAGRA) 25 MG Tablet take 1/2 tablet by mouth if needed 5 Tab 2 diphenhydrAMINE HCl (Sleep) 25 MG Oral Capsule Take 12.5 mg by mouth once. Indications: takes 1/2 capsule at bedtime for sleep Diclofenac Sodium 1 % External Gel (Voltaren) Apply to affected areas 1-2 times daily Acetaminophen 500 MG Oral Tablet (Tylenol) Take 2 Tabs by mouth 2 times a day. (Patient taking differently: Take 2 Tablets by mouth every 6 hours as needed.) 100 Tab 0 Ibuprofen 200 MG Oral Capsule Take 1 Capsule by mouth every 4 hours as needed. Levothyroxine Sodium 150 MCG Oral Tablet (Levoxyl) TAKE 1 TABLET BY MOUTH IN THE MORNING AT LEAST 30 MIN PRIOR TO BREAKFAST OR OTHER MEDS 90 Tablet 3 DAILY MULTIVITAMIN PO TABS (Patient not taking: Reported on 02/12/2023) 0 Calcium Carbonate-Vitamin D 500-125 MG-UNIT Oral Tablet Take by mouth daily. (Patient not taking: Reported on 02/12/2023) aspirin enteric coated 81 MG TBEC Take 1 Tablet by mouth in the morning. (Patient not taking: Reported on 02/12/2023) 100 Tab 3 RELION ULTRA THIN LANCETS 30G MISC USE TO TEST TWICE DAILY Dx Code E11.9 (Patient not taking: Reported on 02/12/2023) 100 Each 1 Glucose Blood In Vitro Strip USE TO CHECK GLUCOSE ONCE DAILY. (Patient not taking: Reported on 02/12/2023) 150 Strip 4 metFORMIN HCl 500 MG Oral Tablet (Glucophage) TAKE 1 TABLET BY MOUTH WITH BREAKFAST AND 1 WITH SUPPER DIRECTED (Patient not taking: Reported on 02/12/2023) 180 Tablet 3 No current facility-administered medications for this visit. Review of patient's allergies indicates: Allergen Reactions Pollen Other (Please comment) sneezing OBJECTIVE: There were no vitals taken for this visit. Blood pressure 122/72, pulse 72, height 1.956 m (6' 5"), SpO2 97 %. PHYSICAL EXAM: General: alert, healthy, no distress, well developed Heart: regular rhythm and rate,No murmurs. Lungs: lungs clear to auscultation Extremities: no edema ASSESSMENT/PLAN: Type 2 diabetes mellitus with hemoglobin A1c goal of less than 7.0% (HCC) (Primary) Resume metformin Keep fu pcp in feb Hx of nonmelanoma skin cancer Sp MOHS in November Other specified hypothyroidism ct current meds Follow Up: Return if symptoms worsen or fail to improve. (This note was completed using the dictation program Fluency Direct. As such, there may be misspellings, word substitutions, or other variations that should not change the essence of the clinical content of this encounter note. If there is need for further clarification, please direct questions to the provider listed above.) Patient and / caregiver verbalize understanding of above instructions and agrees with plan of care. Yahaira Reynoso MD 02/12/2023 documented in this encounter Plan of Treatment Upcoming Encounters Date Type Specialty Care Team Description 03/04/2023 Office Visit Internal Medicine Naseem Art MD [address] [place] [address] 04/25/2023 Office Visit Dermatology Tawanna Vazquez PA-C [address] [place] [address] [place] [address] Health Maintenance Due Date Last Done Comments Zoster Vaccines (2 of 3) 07/11/2015 05/16/2015 *BISPHONATE OR OTHER ACCEPTABLE MEDICATION NEEDED FOR OSTEOPOROSIS (REFER TO SMARTSET #1146) 05/09/2020 HbA1c 03/04/2023 09/04/2022, 02/20, 08/30/2021, Additional history exists DIABETES-EYE EXAM 03/09/2023 03/09/2022, , 03/09/2022, Additional history exists Depression Screening, Annual for Pts 12 and Over 03/15/2023 03/15/2022 Influenza Vaccine (FLU shot) (#1) 2023 05/02/2022, 04/04/2021, 04/02/2020, Additional history exists Albumin/Creatinine Ratio 09/04/2023 023, 04/26/2021, 02/23/2020, Additional history exists B-12 09/04/2023 09/04/2022, 02/0 03/2022, 08/29/2020, Additional history exists DIABETES-FOOT EXAM 09/04/2023 09/04/2022, 0 08/30/2021, 08/29/2020, Additional history exists TSH 09/04/2023 09/04/2022, 02/0 03/2022, 04/26/2021, Additional history exists DXA Scan 10/08/2024 10/08/2022, 04/21, 05/06/2018, Additional history exists DTaP,Tdap,and Td Vaccines (2 - Td or Tdap) 06/28/2025 06/28/2015, 08/02/2008 Pneumococcal Vaccine: 65+ Years Completed 05/31/2014, 05/10/2004, 01/08/2001 VITAMIN D LEVEL ONCE IN A LIFETIME-USE SMARTSET# [id number] Completed 10/30/2018, 05/06/2018, 02/18/2017, Additional history exists COVID-19 Vaccine Completed 05/14/2022, , 10/06/2020, Additional history exists GARDASIL-HPV IMMUNIZATION SERIES Aged [...] as of this encounter Visit Diagnoses Diagnosis Type 2 diabetes mellitus with hemoglobin A1c goal of less than 7.0% (HCC)- Primary Hx of nonmelanoma skin cancer Personal history of other malignant neoplasm of skin Other specified hypothyroidism documented in this encounter Care Teams Buttermilk Drier Operator Relationship Specialty Start Date End Date Naseem Art MD [address] [place] [address], [place] [address] PCP - General Internal Medicine 08/30/21 documented as of this encounter
--- OUTSIDE RECORDS SUMMARY | 2023-07-07 16:38 | External Medical Summary | Summary of Care ---
Author Name Unknown Organization [facility] Address [address] [place] [address] Phone [phone] Care Team Providers Care Mixer Slagman Name Role Phone Naseem Hernandez MD Primary Care Provider + Reason for Referral * Evaluate & Treat - Unlimited Visits (Within 30 days (routine)) - Authorized Specialty Diagnoses / Procedures Referred By Contac t Referred To Contact Ophthalmology Diagnoses Type 2 diabetes mellitus with hemoglobin A1c goal of less than 7.0% ([facility]) Naseem Hernandez MD [facility] [place] [address] [place] [id number] Referral ID Status Reason Start Date Expiration Date Visits Requested Visits Authorized [id number] Authorized Specialty Services Required 03/04/2023 999 999 [...] State Romulo Mata [address] [place] [address] Naseem Hernandez MD [address] [place] [phone] Type 2 diabetes mellitus with hemoglobin A1c goal of less than 7.0% ([facility])*; Acquired hypothyroidism; Age-related osteoporosis without current pathological [...] Active Additional Information Patient taking differently:1,000 mg [id number] PRN, Reported on 02/12/2023 Levothyroxine Sodium 150 [...] years!! Just moved to new residence in [place], still getting used to it. He stopped [...] A1c goal of less than 7.0% ([facility]) E11.9 Abnormality of gait R26.9 DNR (do not resuscitate) Z66 Hypothyroidism E03.9 Osteoporosis M81.0 Diabetic peripheral neuropathy ([facility]) E11.42 Intermediate stage nonexudative age-related macular degeneration [...] on file Occupational History Occupation: retired from [employer] Tobacco Use Smoking status: Former Packs/day: 1.00 [...] Not Asked Social History Narrative born in [place], [place], back in [employer] in 1970, retired 1996 Rajesh Trujillo Fernandojessie [...] inflammatory tissue on bx, diverticulosis, repeat per PCP/[facility] COLONOSCOPY, SURGERY REFERRAL OP 08/15/2005 4 rectal polyps, all hyperplastic, repeat in 5 years COLORECTAL CANCER SCREEN; COLON 07/22/2002 repeat in 2005, single sub 1.0 cm adenoma found ascending colon, Dr Melvin, [facility] OTHER (INFORMATION) ACT 112 SIGNED 03/09/22 REMOVE [...] A1c goal of less than 7.0% ([facility]) (primary encounter diagnosis) E03.9 Acquired hypothyroidism M81.0 Age-related osteoporosis without current pathological fracture E11.42 Diabetic peripheral neuropathy (HCC) H43.392 Vitreous floaters of left eye F43.9 Stress at home PLAN: Type 2 diabetes mellitus with hemoglobin A1c goal of less than 7.0% ([facility]) (Primary) - COMPREHENSIVE METABOLIC PANEL; Future; Expected [...] 04/25/2023 Office Visit Dermatology Tawanna Vazquez PA-C [address] [place] [address] [place] [address] 09/24/2023 Office Visit Internal Medicine Naseem Hernandez MD [address] [place] [address] [place] [id number] Scheduled Orders Name Type Priority Associated Diagnoses [...] D LEVEL ONCE IN A LIFETIME-USE SMARTSET# [id number] Completed 03/04/2023, 10/30/2018, 05/06/2018, Additional history exists [...] <=129 mg/dL 03/05/2023 12:58 AM EDT [facility] Comment: LDL Cholesterol Reference Ranges (mg/dL): <70 Target level for high risk ASCVD patient <100 Optimal for general population 100-129 Near optimal for general population 130-159 Borderline high 160-189 High >=190 Very high Blood Venous blood specimen / Unknown Venipuncture / Unknown 03/04/2023 3:44 PM EDT 03/04/2023 3:45 PM EDT Naseem Hernandez MD LAB BLOOD ORDERA BLES [facility] [address] [place] [address] * 25-HYDROXY VITAMIN D (03/04/2023 3:44 PM EDT) 25-Hydroxy Vitamin D 25 >19 ng/mL 03/05/2023 1:38 AM EDT [facility] Blood Venous blood specimen / Unknown Venipuncture / Unknown 03/04/2023 3:44 PM EDT 03/04/2023 3:45 PM EDT Narrative [facility] - 03/05/2023 1:38 AM EDT Deficient: <20 ng/mL Insufficient: 20-29 ng/mL Recommended/Optimum:30-50 ng/mL Vitamin D intoxication is rare. If suspicious of Vitamin D toxicity, evaluation of serum Calcium and PTH is recommended. Naseem Hernandez MD LAB BLOOD ORDERA BLES Performing Organization Address City/[facility]/ZIP Co de Phone Number [facility] [address] [place] [address] * (ABNORMAL) TSH (03/04/2023 3:44 PM EDT) [facility] TSH 39.80(H) 0.27 - 4.20 uIU/mL 03/05/2023 1:38 AM EDT [facility] Blood Venous blood specimen / Unknown Venipuncture / Unknown 03/04/2023 3:44 PM EDT 03/04/2023 3:45 PM EDT Naseem Hernandez MD LAB BLOOD ORDERA BLES Performing Organization Address [facility] de Phone Number [facility] [address] [place] [address] * (ABNORMAL) HEMOGLOBIN A1C (03/04/2023 3:44 PM EDT) [facility] Hemoglobin A1C 7.5(H) 4.0 - 5.6 % 03/05/2023 1:10 AM EDT [facility] Comment:The use of HbA1c to monitor glycemic status is based on normal hemoglobin and HbA composition. This test should not be used in patients with abnormal hemoglobin that affects the half life of the red blood cell or the in vivo glycation rates. Estimated Average Glucose 169(H) <126 mg/dL 03/05/2023 1:10 AM EDT [facility] Blood Venous blood specimen / Unknown Venipuncture / Unknown 03/04/2023 3:44 PM EDT 03/04/2023 3:45 PM EDT Naseem Hernandez MD LAB BLOOD ORDERA BLES Performing Organization Address [facility] Co de Phone Number [facility] [address] [place] [address] * (ABNORMAL) COMPREHENSIVE METABOLIC PANEL (03/04/2023 3:44 PM EDT) [facility] BUN 15 6 - 20 mg/dL 03/04/2023 4:[address] Creatinine 1.2 0.6 - 1.2 mg/dL 03/04/2023 4:[address] Estimated Glomerular Filtration Rate 61 >=60 mL/min 03/04/2023 4:42 PM [facility] 56 Comment:eGFR is calculated b ased on the CKD-EPI 2020 equation Sodium 138 135 - 146 mmol/L 03/04/2023 4:[address] Potassium 4.6 3.5 - 5.1 mmol/L 03/04/2023 4:[address] Chloride 100 98 - 107 mmol/L 03/04/2023 4:[address] CO2 27 22 - 32 mmol/L 03/04/2023 4:[address] Anion Gap 11 7 - 15 mmol/L 03/04/2023 4:[address] Glucose 158(H) 70 - 120 mg/dL 03/04/2023 4:[address] Albumin 4.4 3.8 - 5.0 g/dL 03/04/2023 4:[address] AST 28 10 - 50 U/L 03/04/2023 4:[address] Alkaline Phosphatase 65 35 - 130 U/L 03/04/2023 4:[address] Bilirubin, Total 0.3 <=1.2 mg/dL 03/04/2023 4:[address] Calcium 9.5 8.4 - 10.2 mg/dL 03/04/2023 4:[address] Protein 6.4 6.0 - 8.3 g/dL 03/04/2023 4:42 PM [facility] 56 ALT 25 10 - 50 U/L 03/04/2023 4:42 PM [facility] 56 Blood Venous blood specimen / Unknown Venipuncture / Unknown 03/04/2023 3:44 PM EDT 03/04/2023 3:45 PM EDT Naseem Hernandez MD LAB BLOOD ORDERA BLES [facility] [address] [place] [address] [place] [address] documented in this encounter Visit Diagnoses Diagnosis [...] circumstance documented in this encounter Care Teams Mixer Slagman Relationship Specialty Start Date End Date [facility] [address] [facility] [address] PCP - General Internal Medicine 08/30/21 documented as of this encounter
--- OUTSIDE RECORDS SUMMARY | 2023-07-07 16:38 | External Medical Summary | Summary of Care ---
Author Name Unknown Organization [facility] Address [address] [place] [address] Phone [phone] Care Team Providers Care Repair Welder Name Role Phone Naseem Art MD Primary Care Provider + Reason for Referral * Evaluate & Treat - Unlimited Visits (Within 30 days (routine)) - Authorized Specialty Diagnoses / Procedures Referred By Contac t Referred To Contact Ophthalmology Diagnoses Type 2 diabetes mellitus with hemoglobin A1c goal of less than 7.0% ([facility]) Naseem Art MD [facility] [id number] Referral ID Status Reason Start Date Expiration Date Visits Requested Visits Authorized [id number] Authorized Specialty Services Required 03/04/2023 999 999 [...] State Romulo Mata [address] [place] [id number] Naseem Art MD [address] [place] [id number] Type 2 diabetes mellitus with hemoglobin A1c goal of less than 7.0% ([facility])*; Acquired hypothyroidism; Age-related osteoporosis without current pathological fracture; Diabetic peripheral neuropathy (HCC); Vitreous floaters of left eye; Stress at home Allergies Active Allergy Reactions Severity Noted Date Comments Pollen Other (Please comment) 10/26/2019 sneezing documented as of this encounter (statuses as of 03/04/2023) Medications Medication Sig Dispensed Refills Start Date [...] Active Additional Information Patient taking differently:1,000 mg [id number] PRN, Reported on 02/12/2023 Levothyroxine Sodium 150 [...] as of this encounter (statuses as of 03/04/2023) Active Problems Problem Noted Date Hx of [...] as of this encounter (statuses as of 03/04/2023) Resolved Problems Problem Noted Date Resolved Date [...] as of this encounter (statuses as of 03/04/2023) Immunizations Name Administration Dates Next Due COVID-19 [...] in this encounter Progress Notes * Naseem Art MD - 03/04/2023 3:36 PM EDT Chief Complaint Patient presents with Follow Up 6 month follow up. Patient denied any new concerns. Patient states he is currently not taking his medication as directed due to overwhelmed with moving. SUBJECTIVE: Rajesh Jett is a 87 year old male with PMH as below who presents for follow up diabetic neuropathy, DM, hypothyroidism. No cp, sob, ujarez. Sadly, his lease was not renewed after 30 years!! Just moved to new residence in [place], still getting used to it. 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 Please [...] Encounter for ophthalmic examination and evaluation Cyndi Jean Paul, OD Family history of GI malignancy colon [...] inflammatory tissue on bx, diverticulosis, repeat per PCP/[facility] COLONOSCOPY, SURGERY REFERRAL OP 08/15/2005 4 rectal polyps, all hyperplastic, repeat in 5 years COLORECTAL CANCER SCREEN; COLON 07/22/2002 repeat in 2005, single sub 1.0 cm adenoma found ascending colon, Dr Melvin, [facility] OTHER (INFORMATION) ACT 112 SIGNED 03/09/22 [...] hemoglobin A1c goal of less than 7.0% ([facility]) (primary encounter diagnosis) E03.9 Acquired hypothyroidism M81.0 Age-related osteoporosis without current pathological fracture E11.42 Diabetic peripheral neuropathy ([facility]) H43.392 Vitreous floaters of left eye F43.9 Stress at home PLAN: Type 2 diabetes mellitus with hemoglobin A1c goal of less than 7.0% ([facility]) (Primary) - COMPREHENSIVE METABOLIC PANEL; Future; Expected [...] Labs Today. | For: Labs Today Naseem Art MD documented in this encounter Nursing Notes * Romie Stein CMA - 03/04/2023 3:12 PM EDT Chief Complaint Patient presents with Follow Up 6 month follow up. Patient denied any new concerns. documented in this encounter Plan of Treatment Upcoming Encounters Date Type Specialty Care Team Description 04/25/2023 Office Visit Dermatology Tawanna Vazquez PA-C [address] [place] [address] [place] [phone] 09/24/2023 Office Visit Internal Medicine Naseem Art MD [address] [place], [place] [address] [address] Pending Results Name Type Priority Associated Diagnoses Date /Time COMPREHENSIVE METABOLIC PANEL Lab Routine Type 2 diabetes mellitus with hemoglobin A1c goal of less than 7.0% (HCC) 03/04/2023 3:44 PM EDT HEMOGLOBIN A1C Lab Routine Type 2 diabetes mellitus with hemoglobin A1c goal of less than 7.0% (HCC) 03/04/2023 3:44 PM EDT TSH Lab Routine Acquired hypothyroidism 03/04/2023 3:44 PM EDT 25-HYDROXY VITAMIN D Lab Routine Age-related osteoporosis without current pathological fracture 03/04/2023 3:44 PM EDT LDL CHOLESTEROL (DIRECT MEASURE) Lab Routine Type 2 diabetes mellitus with hemoglobin A1c goal of less than 7.0% (HCC) 03/04/2023 3:44 PM EDT Scheduled Orders Name Type Priority Associated Diagnoses Orde r Schedule COMPREHENSIVE METABOLIC PANEL Lab Routine Type 2 diabetes mellitus with hemoglobin A1c goal of less than 7.0% (HCC) Expected: 03/04/2023 (Approximate), Expires: 03/03/2024 HEMOGLOBIN A1C Lab Routine Type 2 diabetes mellitus with hemoglobin A1c goal of less than 7.0% (HCC) Expected: 03/04/2023 (Approximate), Expires: 03/03/2024 TSH Lab Routine Acquired hypothyroidism Expected: 03/04/2023 (Approximate), Expires: 03/03/2024 25-HYDROXY VITAMIN D Lab Routine Age-related osteoporosis without current pathological fracture Expected: 03/04/2023 (Approximate), Expires: 03/03/2024 LDL CHOLESTEROL (DIRECT MEASURE) Lab Routine Type 2 diabetes mellitus with hemoglobin A1c goal of less than 7.0% (HCC) Expected: 03/04/2023 (Approximate), Expires: 03/03/2024 Scheduled Referrals Name Type Priority Associated Diagnoses [...] D LEVEL ONCE IN A LIFETIME-USE SMARTSET# [id number] Completed 10/30/2018, 05/06/2018, 02/18/2017, Additional history exists [...] circumstance documented in this encounter Care Teams Repair Welder Relationship Specialty Start Date End Date Naseem Art MD [address] [place] [address], [place] [address] PCP - General Internal Medicine 08/30/21 documented as of this encounter
--- OUTSIDE RECORDS SUMMARY | 2023-07-07 16:38 | External Medical Summary ---
Author Name Unknown Address Unknown Organization K01:[facility] - [address] [place] [address] Laboratory Report Ordering Provider Test Date Status DAVID BAIRD 03/04/2023 15:44:53 Final Observation Date Value Abnormality Reference (Units ) Status TSH 03/04/2023 15:44:53 39.80 Above high normal 0. 27-4.20 (uIU/mL) Final Performing Location [facility]ATORY [facility] - [address] [place] [address]
--- OUTSIDE RECORDS SUMMARY | 2023-07-07 16:38 | External Medical Summary | Summary of Care ---
Author Name Unknown Organization [facility] Address [address] [place] [address] Phone [phone] Care Team Providers Care Performing Arts Road Manager Name Role Phone Naseem Art MD Primary Care Provider + Reason for Visit * Reason Comments Outpatient Testing Encounter Details Date Type Department Care Team Description 03/04/2023 Laboratory Laboratory [facility] [place] [address] [place] [address] [facility] [address] [place] [address] Type 2 diabetes mellitus with hemoglobin A1c goal of less than 7.0% ([facility]); Acquired hypothyroidism; Age-related osteoporosis without current pathological fracture Allergies Active Allergy Reactions Severity Noted Date [...] Active Additional Information Patient taking differently:1,000 mg [id number] PRN, Reported on 02/12/2023 Levothyroxine Sodium 150 [...] on file documented as of this encounter Plan of Treatment Upcoming Encounters Date Type Specialty Care Team Description 04/25/2023 Office Visit Dermatology Tawanna Vazquez PA-C [address] [place] [address] [place] [phone] 09/24/2023 Office Visit Internal Medicine Naseem Art MD [address] [place] [address] [place] [address] Pending Results Name Type Priority Associated Diagnoses Date /Time COMPREHENSIVE METABOLIC PANEL Lab Routine Type 2 diabetes mellitus with hemoglobin A1c goal of less than 7.0% ([facility]) 03/04/2023 3:44 PM EDT HEMOGLOBIN A1C Lab Routine Type 2 diabetes mellitus with hemoglobin A1c goal of less than 7.0% ([facility]) 03/04/2023 3:44 PM EDT TSH Lab Routine Acquired hypothyroidism 03/04/2023 3:44 PM EDT 25-HYDROXY VITAMIN D Lab Routine Age-related osteoporosis without current pathological fracture 03/04/2023 3:44 PM EDT LDL CHOLESTEROL (DIRECT MEASURE) Lab Routine Type 2 diabetes mellitus with hemoglobin A1c goal of less than 7.0% ([facility]) 03/04/2023 3:44 PM EDT Health Maintenance Due Date Last Done Comments [...] D LEVEL ONCE IN A LIFETIME-USE SMARTSET# [id number] Completed 10/30/2018, 05/06/2018, 02/18/2017, Additional history exists [...] A1c goal of less than 7.0% (HCC) Acquired hypothyroidism Unspecified hypothyroidism Age-related osteoporosis without current pathological fracture Senile osteoporosis documented in this encounter Care Teams Performing Arts Road Manager Relationship Specialty Start Date End Date Naseem Art MD [address] [place] [address], [place] [address] PCP - General Internal Medicine 08/30/21 documented as of this encounter
--- OUTSIDE RECORDS SUMMARY | 2023-07-07 16:38 | External Medical Summary | Summary of Care ---
Author Name Unknown Organization [facility] Address [address] [place] [address] Phone [phone] Care Team Providers Care Machine Operator Picker Name Role Phone Naseem Art MD Primary Care Provider + Reason for Visit * Reason Onset Date Comments Medication Refill 02/11/2023 Encounter Details Date Type Department Care Team Description 02/11/2023 Refill General Internal Medicine [facility] [address] [facility] [place] [address] Naseem Art MD [address] [place] [address] Hypothyroidism Allergies Active Allergy Reactions Severity Noted Date Comments Pollen Other (Please comment) 10/26/2019 sneezing documented as of this encounter (statuses as of 02/11/2023) Medications Medication Sig Dispensed Refills Start Date [...] Code E11.9 100 Each 1 12/22/2018 Active Diclofenac Sodium 1 % External Gel (Voltaren)Indication s:Primary osteoarthritis of both knees Apply to affected areas 1-2 times daily 0 04/04/2021 Active Acetaminophen 500 MG Oral Tablet (Tylenol)Indications :Primary osteoarthritis of both knees Take 2 Tabs by mouth 2 times a day. 100 Tab 0 04/04/2021 Active Ibuprofen 200 MG Oral Capsule Take 1 Capsule by mouth every 4 hours as needed. 0 Active Glucose Blood In Vitro StripIndications:Typ e 2 diabetes mellitus with hemoglobin A1c goal of less than 7.0% (HCC) USE TO CHECK GLUCOSE ONCE DAILY. 150 Strip 4 07/26/2021 Active metFORMIN HCl 500 MG Oral Tablet (Glucophage)Indicati ons:Type 2 diabetes mellitus with hemoglobin A1c goal of less than 7.0% (HCC) TAKE 1 TABLET BY MOUTH WITH BREAKFAST AND 1 WITH SUPPER DIRECTED 180 Tablet 3 10/15/2022 Active Levothyroxine Sodium 150 MCG Oral Tablet (Levoxyl)Indications :Hypothyroidism TAKE 1 TABLET BY MOUTH IN THE MORNING AT LEAST 30 MIN PRIOR TO BREAKFAST OR OTHER MEDS 90 Tablet 3 11/06/2022 Active documented as of this encounter (statuses as of 02/11/2023) Active Problems Problem Noted Date Hx of nonmelanoma skin cancer 10/25/2022 Overview: basal cell carcinoma (L cutaneous upper lip 10/11, R medial cheek 10/11) Intermediate stage nonexudat louise age-related macular degeneration of both eyes 09/04/2022 Diabetic peripheral neuropathy 5 Hypothyroidism 12/20/2013 Osteoporosis 12/20/2013 DNR (do not resuscitate) 05/19/2012 Overview: IMELDA completed 05/19/2012 Type 2 diabetes mellitus with hemoglobin A1c goal of less than 7.0% 05/19/2009 Overview: Per Diabetes Taxonomy. ICD-10 update of inactive term DIVERTICULOSIS OF COLON 10/16/2005 Advance directive on file 11/27/2004 Overview: 05/19/2012: POLST form signed History of tobacco use Overview: 20 pack years, stopped in 1993 Abnormality of gait documented as of this encounter (statuses as of 02/11/2023) Resolved Problems Problem Noted Date Resolved Date [...] as of this encounter (statuses as of 02/11/2023) Immunizations Name Administration Dates Next Due COVID-19 [...] got money to buy more. Never true 04/12/2020 Within the past 12 months, t he food you bought just didn't last and you didn't have money to get more. Never true 04/12/2020 Sex Assigned at Date Recorded Male 11/05/2018 1:03 PM E DT Job Start Date Occupation Industry Not on file Not on file Not on file documented as of this encounter Miscellaneous Notes * Telephone Encounter - Joelle Merida LPN - 02/11/2023 12:51 PM EDT Pending Prescriptions: Disp Refills Levothyroxine Sodium 150 MCG Oral Tablet (*90 Tab*3 Sig: TAKE 1 TABLET BY MOUTH IN THE MORNING AT LEAST 30 MIN PRIOR TO BREAKFAST OR OTHER MEDS * Telephone Encounter - Janina Jovana - 02/11/2023 9:47 AM EDT Did you pend patient's preferred pharmacy and medication before forwarding?yes Pharmacy: [facility] [id number] Pending Prescriptions: Disp Refills Levothyroxine Sodium 150 MCG Oral Tablet *90 Tab*3 Sig: TAKE 1 TABLET BY MOUTH IN THE MORNING AT LEAST 30 MIN PRIOR TO BREAKFAST OR OTHER MEDS Last Visit: 09/04/2022 (in office), Visit date not found (telemedicine) Next Visit: 02/12/2023 If no future appointments scheduled, and last appointment is greater than a year ago, please schedule patient for a follow-up appointment Last date the medication was ordered: 11/06/2022 Is this request for a controlled substance?No Urine Drug Screen:No results found for this or any previous visit. Patient Phone Numbers Labs: Lab Results Component Value Date/Time CREAT 1.0 09/04/2022 10:25 AM CREAT 1.2 02/23/2020 01:09 PM POTASSIUM 4.8 09/04/2022 10:25 AM POTASSIUM 4.7 02/23/2020 01:09 PM TSH 2.69 09/04/2022 10:25 AM TSH 0.23 (L) 06/03/2020 01:59 PM TSH 0.42 08/10/1996 12:29 PM LDLCALC 79 05/07/2019 07:30 AM LDLDIRECT 94 04/26/2021 02:15 PM LDLDIRECT 95 02/23/2020 01:09 PM LDLDIRECT 73 05/31/2014 02:14 PM ALT 21 09/04/2022 10:25 AM ALT 20 02/23/2020 01:09 PM HGBA1C 6.8 (H) 09/04/2022 10:25 AM HGBA1C 6.1 (H) 12/23/2020 02:20 PM HGBA1C 6.0 (H) 02/23/2020 01:09 PM documented in this encounter Plan of Treatment Upcoming Encounters Date Type Specialty Care Team Description 02/12/2023 Office Visit Internal Medicine Yahaira Reynoso MD [address] [place] [address] 03/04/2023 Office Visit Internal Medicine Naseem Art MD [address] [facility] [place] [address] 04/25/2023 Office Visit Dermatology Tawanna Vazquez PA-C [address] [place] [address] [place] [address] Health Maintenance Due Date Last Done Comments [...] D LEVEL ONCE IN A LIFETIME-USE SMARTSET# [id number] Completed 10/30/2018, 05/06/2018, 02/18/2017, Additional history exists [...] as of this encounter Visit Diagnoses Diagnosis Hypothyroidism Unspecified hypothyroidism documented in this encounter Care Teams Machine Operator Picker Relationship Specialty Start Date End Date Naseem Art MD [address] [place] [address], [place] [address] PCP - General Internal Medicine 08/30/21 documented as of this encounter
--- OUTSIDE RECORDS SUMMARY | 2023-07-07 16:38 | External Medical Summary ---
Author Name Unknown Address Unknown Organization K01:[facility] [place] [facility] [address] [facility] [address] Laboratory Report Ordering Provider Test Date Status DAVID BAIRD 03/04/2023 15:44:53 Final Observation Date Value Abnormality Reference (Units ) Status HbA1C 03/04/2023 15:44:53 7.5 Above high normal 4. 0-5.6 (%) Final The use of HbA1c to monitor glycemic status is based on normal hemoglobin and HbA composition. This test should not be used in patients with abnormal hemoglobin that affects the half life of the red blood cell or the in vivo glycation rates. Glucose, estimated average 03/04/2023 15:44:53 169 Above high normal <126 (mg/dL) Fin al Performing Location [facility] [facility] [address] [facility] [address]
--- OUTSIDE RECORDS SUMMARY | 2023-07-07 16:38 | External Medical Summary ---
Author Name Unknown Address Unknown Organization K01:[facility] [place] [address] [place] [address] Laboratory Report Ordering Provider Test Date Status DAVID BAIRD 03/04/2023 15:44:53 Final Deficient: <20 ng/mL
Ins ufficient: 20-29 ng/mL
Recommended/Optimum:30-50 ng/mL

Vitamin D intoxication is rare. If suspicious of Vitamin D toxicity, evaluation of serum Calcium and PTH is recommended. Observation Date Value Abnormality Reference (Units ) Status 25-OH Vitamin D total 03/04/2023 15:44:53 25 >19 (ng/mL) Final Performing Location [facility] [place] [address] [place] [address]
[2023-07-07] MEDS ORDERED: CEFEPIME 2,000 MG in SYRINGE 0 ML IV STA (16:45)
[2023-07-07] MEDS ORDERED: SODIUM CHLORIDE 0.9% 1,000 ML IV ONE ×2 (16:45→18:03)
[2023-07-07] MEDS ORDERED: CEFEPIME 20 ML IV STA (16:46)
--- NOTE | 2023-07-07 16:51 | Emergency Department Note ---
History of Present Illness General Chief complaint: Unresponsive Time Seen by Provider: 07/07/23 16:43 Source: patient, EMS and old records reviewed (From [facility] and has looked up with her ED pharmacist) Mode of arrival: EMS Limitations: no limitations History of Present Illness This patient is a 87-year-old male who has not been seen from since . The neighbors were concerned and when the police arrived he was found unresponsive on the ground. He was confused. He had a temperature of 94. His house was disheveled and smells like urine according to the EMS. His O2 sat was initially low in the 80s but he responded with oxygen they checked a blood sugar in the field was 120. The patient denies any complaints to me. He is sleeping and snoring at times but wakes up and talks and follows commands. No reported trauma Home Medications Medication Instructions Recorded Confirmed Type acetaminophen 500 mg tablet 1,000 mg PO Q6 PRN Pain 07/07/23 07/07/23 History (Tylenol Extra Strength) alendronate 70 mg tablet 70 mg PO WE 07/07/23 07/07/23 History docusate sodium 100 mg capsule 100 mg PO AMHS 07/07/23 07/07/23 History levothyroxine 150 mcg tablet 150 mcg PO QAM 07/07/23 07/07/23 History metformin 500 mg tablet 500 mg PO BIDM 07/07/23 07/07/23 History Allergies Allergy/AdvReac Type Severity Reaction Status Date / Time pollen extracts Allergy Sneezing Verified 07/07/23 17:43 Past Med/Surg History Social History Smoking Status: Unknown if ever smoked Preferred Language: Thai Communication Ability Comment: unable to be assessed 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 Current Living Situation: Alone Feels Safe at Home: Yes Immunizations: Past medical historydiabetes, hypothyroidism Allergiesno documented allergies [place]- [place] Review of Systems Unobtainable due to reduced consciousness Physical Exam Vital Signs Vital Signs - 24 hr 07/07/23 16:40 07/07/23 16:41 07/07/23 16:49 Temperature 33.8 C L Temperature Source [place] [facility] ( Temp Sensing) Pulse Rate 87 77 79 Pulse Rate [Apical] Pulse Rate from SpO2 Sensor 77 78 Pulse Rhythm [Apical] Pulse Strength [Apical] Respiratory Rate 22 24 22 Respiratory Effort / Characteristics Respiratory Depth Respiratory Pattern Blood Pressure 150/95 H 150/95 H Blood Pressure [Right Arm] Blood Pressure Mean 113 113 Blood Pressure Mean [Right Arm] Blood Pressure Position [Right Arm] Pulse Oximetry 97 95 92 Oxygen Delivery Method Room Air Room Air Room Air Sepsis New/Unexplained Change in Mental Status Yes Sepsis Action Taken by Nursing Physician Notified Pulse Oximetry Post Tiitration 07/07/23 16:50 07/07/23 16:51 07/07/23 17:00 Temperature Temperature Source Pulse Rate 73 72 72 Pulse Rate [Apical] Pulse Rate from SpO2 Sensor 73 72 Pulse Rhythm [Apical] Pulse Strength [Apical] Respiratory Rate 23 18 Respiratory Effort / Characteristics Respiratory Depth Respiratory Pattern Blood Pressure Blood Pressure [Right Arm] Blood Pressure Mean Blood Pressure Mean [Right Arm] Blood Pressure Position [Right Arm] Pulse Oximetry 97 99 Oxygen Delivery Method Room Air Room Air Sepsis New/Unexplained Change in Mental Status Sepsis Action Taken by Nursing Pulse Oximetry Post Tiitration 07/07/23 17:06 07/07/23 17:10 07/07/23 17:23 Temperature Temperature Source Pulse Rate 76 73 84 Pulse Rate [Apical] Pulse Rate from SpO2 Sensor 74 74 76 Pulse Rhythm [Apical] Pulse Strength [Apical] Respiratory Rate 17 19 19 Respiratory Effort / Characteristics Respiratory Depth Respiratory Pattern Blood Pressure 144/80 H Blood Pressure [Right Arm] Blood Pressure Mean 101 Blood Pressure Mean [Right Arm] Blood Pressure Position [Right Arm] Pulse Oximetry 93 95 96 Oxygen Delivery Method Room Air Room Air Room Air Sepsis New/Unexplained Change in Mental Status Sepsis Action Taken by Nursing Pulse Oximetry Post Tiitration 07/07/23 17:26 07/07/23 17:30 07/07/23 17:31 Temperature Temperature Source Pulse Rate 104 H 80 Pulse Rate [Apical] Pulse Rate from SpO2 Sensor 75 74 Pulse Rhythm [Apical] Pulse Strength [Apical] Respiratory Rate 17 21 Respiratory Effort / Characteristics Respiratory Depth Respiratory Pattern Blood Pressure 156/92 H Blood Pressure [Right Arm] Blood Pressure Mean 113 Blood Pressure Mean [Right Arm] Blood Pressure Position [Right Arm] Pulse Oximetry 95 96 Oxygen Delivery Method Room Air Room Air Sepsis New/Unexplained Change in Mental Status Sepsis Action Taken by Nursing Pulse Oximetry Post Tiitration 96 07/07/23 17:31 07/07/23 17:31 07/07/23 17:40 Temperature 34.3 C L Temperature Source Rectal Pulse Rate 77 Pulse Rate [Apical] 73 Pulse Rate from SpO2 Sensor 74 Pulse Rhythm [Apical] Pulse Strength [Apical] Respiratory Rate 18 19 Respiratory Effort / Characteristics Respiratory Depth Deep Respiratory Pattern Blood Pressure Blood Pressure [Right Arm] 156/92 H Blood Pressure Mean Blood Pressure Mean [Right Arm] 113 Blood Pressure Position [Right Arm] Pulse Oximetry 96 96 96 Oxygen Delivery Method Room Air Room Air Room Air Sepsis New/Unexplained Change in Mental Status Sepsis Action Taken by Nursing Pulse Oximetry Post Tiitration 07/07/23 17:50 07/07/23 18:00 07/07/23 18:03 Temperature 34.5 C L Temperature Source [place] [facility] ( Temp Sensing) Pulse Rate 73 75 Pulse Rate [Apical] 84 Pulse Rate from SpO2 Sensor 72 74 Pulse Rhythm [Apical] Regular Pulse Strength [Apical] Normal Respiratory Rate 12 30 H 13 Respiratory Effort / Characteristics Non-Labored Spontaneous Respiratory Depth Normal Respiratory Pattern Tachypnea Blood Pressure Blood Pressure [Right Arm] 148/83 H Blood Pressure Mean Blood Pressure Mean [Right Arm] 104 Blood Pressure Position [Right Arm] Lying Pulse Oximetry 92 94 97 Oxygen Delivery Method Room Air Room Air Room Air Sepsis New/Unexplained Change in Mental Status Sepsis Action Taken by Nursing Pulse Oximetry Post Tiitration 07/07/23 18:06 07/07/23 18:10 07/07/23 18:20 Temperature Temperature Source Pulse Rate 79 115 H 88 Pulse Rate [Apical] Pulse Rate from SpO2 Sensor 76 75 74 Pulse Rhythm [Apical] Pulse Strength [Apical] Respiratory Rate 15 21 26 H Respiratory Effort / Characteristics Respiratory Depth Respiratory Pattern Blood Pressure 148/83 H Blood Pressure [Right Arm] Blood Pressure Mean 104 Blood Pressure Mean [Right Arm] Blood Pressure Position [Right Arm] Pulse Oximetry 94 97 95 Oxygen Delivery Method Room Air Sepsis New/Unexplained Change in Mental Status Sepsis Action Taken by Nursing Pulse Oximetry Post Tiitration 07/07/23 18:30 07/07/23 18:40 07/07/23 18:50 Temperature Temperature Source Pulse Rate 76 77 73 Pulse Rate [Apical] Pulse Rate from SpO2 Sensor 75 76 73 Pulse Rhythm [Apical] Pulse Strength [Apical] Respiratory Rate 17 16 24 Respiratory Effort / Characteristics Respiratory Depth Respiratory Pattern Blood Pressure Blood Pressure [Right Arm] Blood Pressure Mean Blood Pressure Mean [Right Arm] Blood Pressure Position [Right Arm] Pulse Oximetry 99 97 99 Oxygen Delivery Method Room Air Sepsis New/Unexplained Change in Mental Status Sepsis Action Taken by Nursing Pulse Oximetry Post Tiitration 07/07/23 19:00 07/07/23 19:10 07/07/23 19:20 Temperature Temperature Source Pulse Rate 80 82 75 Pulse Rate [Apical] Pulse Rate from SpO2 Sensor 79 77 76 Pulse Rhythm [Apical] Pulse Strength [Apical] Respiratory Rate 18 16 25 H Respiratory Effort / Characteristics Respiratory Depth Respiratory Pattern Blood Pressure Blood Pressure [Right Arm] Blood Pressure Mean Blood Pressure Mean [Right Arm] Blood Pressure Position [Right Arm] Pulse Oximetry 97 97 97 Oxygen Delivery Method Sepsis New/Unexplained Change in Mental Status Sepsis Action Taken by Nursing Pulse Oximetry Post Tiitration 07/07/23 19:28 07/07/23 19:29 07/07/23 19:29 Temperature 35.2 C L Temperature Source [place] [facility] ( Temp Sensing) Pulse Rate 81 Pulse Rate [Apical] 94 H Pulse Rate from SpO2 Sensor 76 Pulse Rhythm [Apical] Pulse Strength [Apical] Respiratory Rate 18 34 H Respiratory Effort / Characteristics Non-Labored Spontaneous Respiratory Depth Normal Respiratory Pattern Regular Blood Pressure 146/100 H Blood Pressure [Right Arm] 146/100 H Blood Pressure Mean 127 Blood Pressure Mean [Right Arm] 115 Blood Pressure Position [Right Arm] Pulse Oximetry 95 96 Oxygen Delivery Method Room Air Sepsis New/Unexplained Change in Mental Status Sepsis Action Taken by Nursing Pulse Oximetry Post Tiitration 07/07/23 19:30 07/07/23 19:40 07/07/23 19:50 Temperature Temperature Source Pulse Rate 78 77 85 Pulse Rate [Apical] Pulse Rate from SpO2 Sensor 78 77 80 Pulse Rhythm [Apical] Pulse Strength [Apical] Respiratory Rate 20 19 16 Respiratory Effort / Characteristics Respiratory Depth Respiratory Pattern Blood Pressure Blood Pressure [Right Arm] Blood Pressure Mean Blood Pressure Mean [Right Arm] Blood Pressure Position [Right Arm] Pulse Oximetry 94 99 Oxygen Delivery Method Sepsis New/Unexplained Change in Mental Status Sepsis Action Taken by Nursing Pulse Oximetry Post Tiitration 07/07/23 20:00 07/07/23 20:00 07/07/23 20:01 Temperature 35.6 C L Temperature Source [place] [facility] ( Temp Sensing) Pulse Rate 82 88 Pulse Rate [Apical] Pulse Rate from SpO2 Sensor 82 82 Pulse Rhythm [Apical] Pulse Strength [Apical] Respiratory Rate 17 15 Respiratory Effort / Characteristics Respiratory Depth Respiratory Pattern Blood Pressure Blood Pressure [Right Arm] Blood Pressure Mean Blood Pressure Mean [Right Arm] Blood Pressure Position [Right Arm] Pulse Oximetry 98 Oxygen Delivery Method Room Air Sepsis New/Unexplained Change in Mental Status Sepsis Action Taken by Nursing Pulse Oximetry Post Tiitration 07/07/23 20:01 07/07/23 20:10 07/07/23 20:20 Temperature Temperature Source Pulse Rate 80 81 Pulse Rate [Apical] Pulse Rate from SpO2 Sensor 81 81 Pulse Rhythm [Apical] Pulse Strength [Apical] Respiratory Rate 21 19 Respiratory Effort / Characteristics Respiratory Depth Respiratory Pattern Blood Pressure 146/94 H Blood Pressure [Right Arm] Blood Pressure Mean 101 Blood Pressure Mean [Right Arm] Blood Pressure Position [Right Arm] Pulse Oximetry 97 90 Oxygen Delivery Method Sepsis New/Unexplained Change in Mental Status Sepsis Action Taken by Nursing Pulse Oximetry Post Tiitration 07/07/23 20:30 07/07/23 20:30 07/07/23 20:35 Temperature Temperature Source Pulse Rate 83 85 Pulse Rate [Apical] Pulse Rate from SpO2 Sensor 82 84 Pulse Rhythm [Apical] Pulse Strength [Apical] Respiratory Rate 16 18 Respiratory Effort / Characteristics Respiratory Depth Respiratory Pattern Blood Pressure 99/73 L Blood Pressure [Right Arm] Blood Pressure Mean 75 Blood Pressure Mean [Right Arm] Blood Pressure Position [Right Arm] Pulse Oximetry 81 L 98 Oxygen Delivery Method Sepsis New/Unexplained Change in Mental Status Sepsis Action Taken by Nursing Pulse Oximetry Post Tiitration 07/07/23 20:35 07/07/23 20:40 07/07/23 20:47 Temperature Temperature Source Pulse Rate 103 H 82 Pulse Rate [Apical] Pulse Rate from SpO2 Sensor 84 Pulse Rhythm [Apical] Pulse Strength [Apical] Respiratory Rate 15 Respiratory Effort / Characteristics Respiratory Depth Respiratory Pattern Blood Pressure 127/74 Blood Pressure [Right Arm] Blood Pressure Mean 85 Blood Pressure Mean [Right Arm] Blood Pressure Position [Right Arm] Pulse Oximetry 96 Oxygen Delivery Method Sepsis New/Unexplained Change in Mental Status Sepsis Action Taken by Nursing Pulse Oximetry Post Tiitration 07/07/23 20:50 07/07/23 21:00 07/07/23 21:00 Temperature Temperature Source Pulse Rate 82 82 Pulse Rate [Apical] Pulse Rate from SpO2 Sensor 83 83 Pulse Rhythm [Apical] Pulse Strength [Apical] Respiratory Rate 16 14 Respiratory Effort / Characteristics Respiratory Depth Respiratory Pattern Blood Pressure 135/109 H Blood Pressure [Right Arm] Blood Pressure Mean 117 Blood Pressure Mean [Right Arm] Blood Pressure Position [Right Arm] Pulse Oximetry 96 94 Oxygen Delivery Method Sepsis New/Unexplained Change in Mental Status Sepsis Action Taken by Nursing Pulse Oximetry Post Tiitration General: Well developed well nourished older male who is wearing oxygen appears in no acute distress, breathing comfortably on room air. Normal speech he is sleeping and snoring at times but wakes up and talks and responds appropriate appropriately his speech is nonslurred HEENT: Normal cephalic atraumatic. Pupils are equal round and reactive to light. Extraocular movements are intact. Oropharynx is pink with moist mucous membranes. No swelling of the mouth lips or tongue. Neck: Supple with a midline trachea. No meningeal signs or stiffness, no JVD or bruits. No Stridor. Chest: Clear to auscultation bilaterally. No wheezes or rhonchi. No increased work of breathing. Heart: Regular rate and rhythm without murmurs or gallops. Abdomen: Soft nontender, nondistended without rebound guarding or rigidity. Extremities: No cyanosis clubbing or edema. No calf tenderness or assymetry Spine/Back. Non tender to palpation. No CVA tenderness Skin: Good turgor without rashes. Neurologic exam: Cranial nerves two through 12 are intact. Moves all 4 extremities. He may have a decreased credentials specialist on the right arm compared to the left but certainly not a dense hemiparesis. Course Administered Medications Lactated Ringer's (Lr) 1,000 mls @ 75 mls/hr IV .[id number] ONE Stop: 07/08/23 09:20 Last Admin: 07/07/23 20:13 Dose: 75 mls/hr Documented By: ALCON Insulin Aspart (Insulin Aspart Per Unit Charge) 0 units SC ACHS [facility] Stop: 08/06/23 21:27 Last Admin: 07/07/23 22:03 Dose: Not Given Documented By: ALCON Insulin Glargine (Lantus Per Unit Charge) 5 units SQ BID [facility] Stop: 08/06/23 21:27 Last Admin: 07/07/23 22:02 Dose: 5 units Documented By: ALCON Co-signed By: YELENA Discontinued Medications Hydrocortisone Sodium Succinate (Hydrocortisone Sod Succinate 100 Mg/2 Ml Vial) 100 mg IV NOW [facility] Stop: 07/07/23 21:01 Last Admin: 07/07/23 22:06 Dose: Not Given Documented By: ALCON Cefepime HCl (Maxipime) 20 mls @ 5 mls/min IV NOW STA Stop: 07/07/23 16:49 Last Admin: 07/07/23 16:59 Dose: 5 mls/min Documented By: RADHA Sodium Chloride (Nss) 1,000 mls @ 999 mls/hr IV .Q1H1M ONE Stop: 07/07/23 17:45 Last Infusion: 07/07/23 18:45 Dose: Infused Documented By: Admin: 07/07/23 16:57 Dose: 999 mls/hr Documented By: MES Sodium Chloride (Nss) 1,000 mls @ 999 mls/hr IV .Q1H1M ONE Stop: 07/07/23 19:03 Last Infusion: 07/07/23 20:04 Dose: Infused Documented By: Admin: 07/07/23 19:02 Dose: 999 mls/hr Documented By: YOLY Cosyntropin 250 mcg/ Syringe 5 mls @ 2.5 mls/min IV ONE STA Stop: 07/07/23 21:22 Last Admin: 07/07/23 21:59 Dose: 2.5 mls/min Documented By: ALCON Ioversol (Optiray 320 125ml) 115 ml IV ONCE ONE Stop: 07/07/23 21:44 Last Admin: 07/07/23 21:43 Dose: 115 ml Documented By: ELIJAH Critical Care Time Critical Care Time: Yes Total Critical Care Time: 60 The patient came in altered and was placed in our major resuscitation room a 1. The nurses asked me to come see him due to his acute illness. Due to the patient's altered mental status, need for frequent reassessment, extensive workup and consultation as well as IV fluids and IV antibiotics, I have personally spent greater than 60 minutes of critical care time in the direct management of this patient. This includes bedside care, interpretation of diagnostic studies, and testing, discussion with consultants, patient, and family members, and other required patient management activities. This 60 minutes is in excess of all separately billable procedures. Medical Decision Making Differential Diagnosis Stroke, intracranial process, diabetic emergency, sepsis, urosepsis, dehydration, rhabdo, cardiac event, toxicologic Medical Records Attestation: I reviewed the patient's medical records. Home Medications Current Medication List: was personally reviewed by me Laboratory Data Attestation: I reviewed the patient's lab results. 07/07/23 16:50 07/07/23 16:50 Lab Results 07/07/23 07/07/23 07/07/23 Range/Units 16:35 16:50 16:58 WBC 21.78 H (4.8-10.8) K/ul RBC 4.79 (4.70-6.10) M/uL Hgb 15.8 (14.0-18.0) g/dl POC Hgb (14.0-18.0) g/dl Hct 46.4 (42.0-52.0) % POC Hct (42-52) % MCV 96.9 (80.0-100.0) fL MCH 33.0 (25.0-34.0) pg MCHC 34.1 (32.0-36.0) g/dL RDW Std Deviation 48.2 H (36.4-46.3) fL RDW Coeff of Donnie 13.4 (11.5-14.5) % Plt Count 320 (130-400) K/uL MPV 9.9 (9.4-12.4) fL Immature Gran % (Auto) 3.9 % Neut % (Auto) 89.1 % Lymph % (Auto) 2.2 % [place] % (Auto) 4.5 % Eos % (Auto) 0.0 % Baso % (Auto) 0.3 % Neut # (Auto) 19.42 H (1.40-6.50) K/uL Lymph # (Auto) 0.47 L (1.20-3.40) K/uL [place] # (Auto) 0.97 H (0.11-0.59) K/uL Eos # (Auto) 0.01 (0.00-0.50) K/uL Baso # (Auto) 0.06 (0.00-0.20) K/uL Immature Gran # (Auto) 0.85 H (0.01-0.20) K/uL PT 13.2 H (9.0-12.0) Seconds INR 1.2 H (0.9-1.1) APTT 22 (21-31) Seconds PTT Ratio 0.8 VBG pH (7.36-7.41) VBG pCO2 (38-50) mmHg VBG pO2 mmHg VBG HCO3 mmol/L VBG O2 Saturation % VBG Base Excess mEq/L POC Sodium (135-144) mmol/L Sodium 135 L (136-145) mmol/L POC Potassium (3.3-5.0) mmol/L Potassium 4.1 (3.5-5.1) mmol/L POC Chloride (101-112) mmol/L Chloride 98 (98-107) mmol/L Carbon Dioxide 19 L (21-32) mmol/L POC Total CO2 (24-31) mmol/L Anion Gap 18 H (3-11) POC Anion Gap (16-25) mmol/L POC BUN (7-18) mg/dl BUN 41 H (6-23) mg/dl Creatinine 1.39 (0.6-1.4) mg/dl POC Creatinine (0.6-1.3) mg/dl Est Cr Clr Drug Dosing 43.1 ml/min Est GFR ( Amer) 52.8 ml/min Est GFR (Non-Af Amer) 45.6 ml/min BUN/Creatinine Ratio 29.5 H (10-20) Glucose 119 H (70-99(Fasting)) mg/dl POC Glucose (other) (70-99) mg/dl Lactate 2.6 H* (0.4-2.0) mmol/L Calcium 9.0 (8.6-10.3) mg/dl POC Ioniz Calcium Va (1.12-1.32) mmol/l Magnesium 2.3 (1.7-2.4) mg/dl Total Bilirubin 1.6 H (0.2-1.0) mg/dl Direct Bilirubin 0.4 H (0-0.2) mg/dl AST 530 H (13-39) U/L ALT 113 H (7-52) U/L Alkaline Phosphatase 79 (34-104) U/L Ammonia (18-72) umol/L Total Creatine Kinase 62430 H (30-223) U/L Troponin I High Sens 22.6 H (0-20) pg/ml B-Natriuretic Peptide 53 (0-100) pg/ml Total Protein 7.4 (6.0-8.3) gm/dl Albumin 4.5 (3.4-5.0) gm/dl Procalcitonin 0.27 (0-0.5) ng/ml TSH 35.558 H (0.300-4.500) uIu/ml Free T4 < 0.25 L (0.61-1.60) ng/dl Random Cortisol mcg/dl Urine Color Dark Yellow Urine Appearance Clear (Clear) Urine pH 5.5 (4.5-7.5) Ur Specific [place] 1.022 (1.000-1.030) Urine Protein 2+ H (Negative) Urine Glucose (UA) Negative (Negative) Urine Ketones Trace H (Negative) Urine Blood 3+ H (Negative) Urine Nitrite Negative (Negative) Urine Bilirubin 1+ H (Negative) Urine Urobilinogen Negative (Negative) Ur Leukocyte Esterase Negative (Negative) Urine WBC (Auto) 1-5 (0-5) /hpf Urine RBC (Auto) 10-30 H (0-4) /hpf U Hyaline Cast (Auto) 5-10 H (0-5) /lpf U Epithel Cells (Auto) 10-20 H (0-5) /lpf Urine Bacteria (Auto) Negative (Negative) Salicylates (3.0-30) mg/dl Urine Opiates Screen Neg (Neg) Ur Methadone, Qual Neg (Neg) Acetaminophen (10-30) ug/ml Urine Barbiturates Neg (Neg) Ur Phencyclidine (PCP) Neg (Neg) U Amphetamin/Meth Scrn Neg (Neg) MDMA (Ecstasy) Screen Neg (Neg) U Benzodiazepines Scrn Neg (Neg) Ur Cocaine Metabolite Neg (Neg) U Marijuana (THC) Screen Neg (Neg) Ethyl Alcohol mg/dL (<10.0) mg/dl Adenovirus (PCR) Not Detected (NotDetected) B. pertussis DNA (PCR) Not Detected (NotDetected) B.parapertussis DNA PCR Not Detected (NotDetected) C. pneumoniae DNA (PCR) Not Detected (NotDetected) Coronavirus OC43 (PCR) Not Detected (NotDetected) Coronavirus HKU1 (PCR) Not Detected (NotDetected) Coronavirus 229E (PCR) Not Detected (NotDetected) SARS-CoV-2 (PCR) Not Detected (NotDetected) Coronavirus NL63 (PCR) Not Detected (NotDetected) Human Metapneumovir PCR Not Detected (NotDetected) Influenza Type A (PCR) Not Detected (NotDetected) Influenza Type B (PCR) Not Detected (NotDetected) M. pneumoniae (PCR) Not Detected (NotDetected) Parainfluenza 1 (PCR) Not Detected (NotDetected) Parainfluenza 2 (PCR) Not Detected (NotDetected) Parainfluenza 3 (PCR) Not Detected (NotDetected) Parainfluenza 4 (PCR) Not Detected (NotDetected) RSV (PCR) Not Detected (NotDetected) Entero/Rhino (PCR) Not Detected (NotDetected) 07/07/23 07/07/23 07/07/23 Range/Units 17:03 17:32 17:33 WBC (4.8-10.8) K/ul RBC (4.70-6.10) M/uL Hgb (14.0-18.0) g/dl POC Hgb 16.3 (14.0-18.0) g/dl Hct (42.0-52.0) % POC Hct 48 (42-52) % MCV (80.0-100.0) fL MCH (25.0-34.0) pg MCHC (32.0-36.0) g/dL RDW Std Deviation (36.4-46.3) fL RDW Coeff of Donnie (11.5-14.5) % Plt Count (130-400) K/uL MPV (9.4-12.4) fL Immature Gran % (Auto) % Neut % (Auto) % Lymph % (Auto) % [place] % (Auto) % Eos % (Auto) % Baso % (Auto) % Neut # (Auto) (1.40-6.50) K/uL Lymph # (Auto) (1.20-3.40) K/uL [place] # (Auto) (0.11-0.59) K/uL Eos # (Auto) (0.00-0.50) K/uL Baso # (Auto) (0.00-0.20) K/uL Immature Gran # (Auto) (0.01-0.20) K/uL PT (9.0-12.0) Seconds INR (0.9-1.1) APTT (21-31) Seconds PTT Ratio VBG pH 7.33 L (7.36-7.41) VBG pCO2 50 (38-50) mmHg VBG pO2 29 mmHg VBG HCO3 26 mmol/L VBG O2 Saturation < 60.0 % VBG Base Excess -0.2 mEq/L POC Sodium 136 (135-144) mmol/L Sodium (136-145) mmol/L POC Potassium 4.0 (3.3-5.0) mmol/L Potassium (3.5-5.1) mmol/L POC Chloride 102 (101-112) mmol/L Chloride (98-107) mmol/L Carbon Dioxide (21-32) mmol/L POC Total CO2 23 L (24-31) mmol/L Anion Gap (3-11) POC Anion Gap 16.0 (16-25) mmol/L POC BUN 40 H (7-18) mg/dl BUN (6-23) mg/dl Creatinine (0.6-1.4) mg/dl POC Creatinine 1.5 H (0.6-1.3) mg/dl Est Cr Clr Drug Dosing ml/min Est GFR ( Amer) ml/min Est GFR (Non-Af Amer) ml/min BUN/Creatinine Ratio (10-20) Glucose (70-99(Fasting)) mg/dl POC Glucose (other) 118 H (70-99) mg/dl Lactate (0.4-2.0) mmol/L Calcium (8.6-10.3) mg/dl POC Ioniz Calcium Va 1.01 L (1.12-1.32) mmol/l Magnesium (1.7-2.4) mg/dl Total Bilirubin (0.2-1.0) mg/dl Direct Bilirubin (0-0.2) mg/dl AST (13-39) U/L ALT (7-52) U/L Alkaline Phosphatase (34-104) U/L Ammonia (18-72) umol/L Total Creatine Kinase (30-223) U/L Troponin I High Sens (0-20) pg/ml B-Natriuretic Peptide (0-100) pg/ml Total Protein (6.0-8.3) gm/dl Albumin (3.4-5.0) gm/dl Procalcitonin (0-0.5) ng/ml TSH (0.300-4.500) uIu/ml Free T4 (0.61-1.60) ng/dl Random Cortisol mcg/dl Urine Color Urine Appearance (Clear) Urine pH (4.5-7.5) Ur Specific [place] (1.000-1.030) Urine Protein (Negative) Urine Glucose (UA) (Negative) Urine Ketones (Negative) Urine Blood (Negative) Urine Nitrite (Negative) Urine Bilirubin (Negative) Urine Urobilinogen (Negative) Ur Leukocyte Esterase (Negative) Urine WBC (Auto) (0-5) /hpf Urine RBC (Auto) (0-4) /hpf U Hyaline Cast (Auto) (0-5) /lpf U Epithel Cells (Auto) (0-5) /lpf Urine Bacteria (Auto) (Negative) Salicylates < 3.0 L (3.0-30) mg/dl Urine Opiates Screen (Neg) Ur Methadone, Qual (Neg) Acetaminophen < 3 L (10-30) ug/ml Urine Barbiturates (Neg) Ur Phencyclidine (PCP) (Neg) U Amphetamin/Meth Scrn (Neg) MDMA (Ecstasy) Screen (Neg) U Benzodiazepines Scrn (Neg) Ur Cocaine Metabolite (Neg) U Marijuana (THC) Screen (Neg) Ethyl Alcohol mg/dL < 10.0 (<10.0) mg/dl Adenovirus (PCR) (NotDetected) B. pertussis DNA (PCR) (NotDetected) B.parapertussis DNA PCR (NotDetected) C. pneumoniae DNA (PCR) (NotDetected) Coronavirus OC43 (PCR) (NotDetected) Coronavirus HKU1 (PCR) (NotDetected) Coronavirus 229E (PCR) (NotDetected) SARS-CoV-2 (PCR) (NotDetected) Coronavirus NL63 (PCR) (NotDetected) Human Metapneumovir PCR (NotDetected) Influenza Type A (PCR) (NotDetected) Influenza Type B (PCR) (NotDetected) M. pneumoniae (PCR) (NotDetected) Parainfluenza 1 (PCR) (NotDetected) Parainfluenza 2 (PCR) (NotDetected) Parainfluenza 3 (PCR) (NotDetected) Parainfluenza 4 (PCR) (NotDetected) RSV (PCR) (NotDetected) Entero/Rhino (PCR) (NotDetected) 07/07/23 07/07/23 Range/Units 19:09 20:42 WBC (4.8-10.8) K/ul RBC (4.70-6.10) M/uL Hgb (14.0-18.0) g/dl POC Hgb (14.0-18.0) g/dl Hct (42.0-52.0) % POC Hct (42-52) % MCV (80.0-100.0) fL MCH (25.0-34.0) pg MCHC (32.0-36.0) g/dL RDW Std Deviation (36.4-46.3) fL RDW Coeff of Donnie (11.5-14.5) % Plt Count (130-400) K/uL MPV (9.4-12.4) fL Immature Gran % (Auto) % Neut % (Auto) % Lymph % (Auto) % [place] % (Auto) % Eos % (Auto) % Baso % (Auto) % Neut # (Auto) (1.40-6.50) K/uL Lymph # (Auto) (1.20-3.40) K/uL [place] # (Auto) (0.11-0.59) K/uL Eos # (Auto) (0.00-0.50) K/uL Baso # (Auto) (0.00-0.20) K/uL Immature Gran # (Auto) (0.01-0.20) K/uL PT (9.0-12.0) Seconds INR (0.9-1.1) APTT (21-31) Seconds PTT Ratio VBG pH (7.36-7.41) VBG pCO2 (38-50) mmHg VBG pO2 mmHg VBG HCO3 mmol/L VBG O2 Saturation % VBG Base Excess mEq/L POC Sodium (135-144) mmol/L Sodium (136-145) mmol/L POC Potassium (3.3-5.0) mmol/L Potassium (3.5-5.1) mmol/L POC Chloride (101-112) mmol/L Chloride (98-107) mmol/L Carbon Dioxide (21-32) mmol/L POC Total CO2 (24-31) mmol/L Anion Gap (3-11) POC Anion Gap (16-25) mmol/L POC BUN (7-18) mg/dl BUN (6-23) mg/dl Creatinine (0.6-1.4) mg/dl POC Creatinine (0.6-1.3) mg/dl Est Cr Clr Drug Dosing ml/min Est GFR ( Amer) ml/min Est GFR (Non-Af Amer) ml/min BUN/Creatinine Ratio (10-20) Glucose (70-99(Fasting)) mg/dl POC Glucose (other) (70-99) mg/dl Lactate 1.7 (0.4-2.0) mmol/L Calcium (8.6-10.3) mg/dl POC Ioniz Calcium Va (1.12-1.32) mmol/l Magnesium (1.7-2.4) mg/dl Total Bilirubin (0.2-1.0) mg/dl Direct Bilirubin (0-0.2) mg/dl AST (13-39) U/L ALT (7-52) U/L Alkaline Phosphatase (34-104) U/L Ammonia 27.0 (18-72) umol/L Total Creatine Kinase (30-223) U/L Troponin I High Sens 23.1 H (0-20) pg/ml B-Natriuretic Peptide (0-100) pg/ml Total Protein (6.0-8.3) gm/dl Albumin (3.4-5.0) gm/dl Procalcitonin (0-0.5) ng/ml TSH (0.300-4.500) uIu/ml Free T4 (0.61-1.60) ng/dl Random Cortisol 51.69 mcg/dl Urine Color Urine Appearance (Clear) Urine pH (4.5-7.5) Ur Specific [place] (1.000-1.030) Urine Protein (Negative) Urine Glucose (UA) (Negative) Urine Ketones (Negative) Urine Blood (Negative) Urine Nitrite (Negative) Urine Bilirubin (Negative) Urine Urobilinogen (Negative) Ur Leukocyte Esterase (Negative) Urine WBC (Auto) (0-5) /hpf Urine RBC (Auto) (0-4) /hpf U Hyaline Cast (Auto) (0-5) /lpf U Epithel Cells (Auto) (0-5) /lpf Urine Bacteria (Auto) (Negative) Salicylates (3.0-30) mg/dl Urine Opiates Screen (Neg) Ur Methadone, Qual (Neg) Acetaminophen (10-30) ug/ml Urine Barbiturates (Neg) Ur Phencyclidine (PCP) (Neg) U Amphetamin/Meth Scrn (Neg) MDMA (Ecstasy) Screen (Neg) U Benzodiazepines Scrn (Neg) Ur Cocaine Metabolite (Neg) U Marijuana (THC) Screen (Neg) Ethyl Alcohol mg/dL (<10.0) mg/dl Adenovirus (PCR) (NotDetected) B. pertussis DNA (PCR) (NotDetected) B.parapertussis DNA PCR (NotDetected) C. pneumoniae DNA (PCR) (NotDetected) Coronavirus OC43 (PCR) (NotDetected) Coronavirus HKU1 (PCR) (NotDetected) Coronavirus 229E (PCR) (NotDetected) SARS-CoV-2 (PCR) (NotDetected) Coronavirus NL63 (PCR) (NotDetected) Human Metapneumovir PCR (NotDetected) Influenza Type A (PCR) (NotDetected) Influenza Type B (PCR) (NotDetected) M. pneumoniae (PCR) (NotDetected) Parainfluenza 1 (PCR) (NotDetected) Parainfluenza 2 (PCR) (NotDetected) Parainfluenza 3 (PCR) (NotDetected) Parainfluenza 4 (PCR) (NotDetected) RSV (PCR) (NotDetected) Entero/Rhino (PCR) (NotDetected) Imaging Data Attestation: I personally reviewed and interpreted this imaging study as follows: My Impression: Chest x-afia per my interpretationno acute infiltrate, failure, pneumothorax seen. There is some mild cardiomegaly Head CTas per my interpretation to Radiologist's Impression: Head CT 07/07/23 16:43 CT SCAN OF THE BRAIN WITHOUT IV CONTRAST CLINICAL HISTORY: Change in mental status. COMPARISON STUDY: No priors. TECHNIQUE: Unenhanced axial CT scan of the brain is performed from the vertex to the skull base. A dose lowering technique was utilized adhering to the principles of ALARA. CT DOSE: 1250.21 mGy.cm FINDINGS: Brain parenchyma: There is a 2.2 cm peripherally calcified structure in the left anterior temporal fossa, best seen on image #9 of the second series. This appears to extend into the suprasellar region. There is age-related involutional change noting moderate subcortical and periventricular microangiopathic disease. There is no hemorrhage, mass effect, or evidence of acute territorial ischemia by CT criteria. Hall-white matter differentiation is preserved. No extra-axial fluid collection is seen. Ventricles, sulci, cisterns: Prominent secondary to involutional change. Intracranial vasculature: There is atherosclerotic calcification of the cavernous carotid and vertebral arteries. Calvarium: Unremarkable. Sinuses and mastoids: There is trace mucosal thickening in the right maxillary antrum. The remaining visualized paranasal sinuses are clear. The mastoid air cells are well pneumatized. Orbits: The bony orbits are grossly intact. There are bilateral ocular lens implants. IMPRESSION: 1. There is no hemorrhage, mass effect, or evidence of acute territorial ischemia by CT criteria. 2. There is a 2.2 cm ovoid peripherally calcified structure in the left anterior temporal fossa. This is pathologically indeterminant, and top differential considerations include a meningioma or possibly a large aneurysm. Correlation with a CT angiogram of the brain is recommended for further assessment. ACT 112: Negative or not required by law. Electronically signed by: Min Boyle M.D. 07/07/2023 5:40 PM Chest X-Ray 07/07/23 16:44 SINGLE VIEW CHEST CLINICAL HISTORY: Sepsis. FINDINGS: 2 AP, portable, semierect chest radiographs are obtained. No prior studies are available for comparison at the time of dictation. The examination is degraded by portable technique and patient rotation. The heart is enlarged noting atherosclerotic calcification of the thoracic aorta. There is prominence of the pulmonary vasculature. Scarring/atelectasis is noted at the lung bases. No airspace consolidation or large pleural effusion is identified. No pneumothorax is seen. The skeletal structures are osteopenic. The bony thorax is grossly intact. IMPRESSION: 1. Cardiomegaly with prominence of the pulmonary vasculature. Correlate clinically for evidence of fluid overload/congestive change. 2. No airspace consolidation or large pleural effusion is identified. ACT 112: Negative or not required by law. Electronically signed by: Min Boyle M.D. 07/07/2023 5:08 PM ECG Data Attestation: I personally reviewed and interpreted this ECG as follows: Indication: + altered mental status and + other (Poor baseline) Rate (beats per minute): 75 Rhythm: + normal sinus ECG Intervals/blocks: + Normal QRS, + Normal QT and + Normal RI ECG [place]: + Normal ECG ST segments: + Normal ST segments ECG Findings: + Poor R wave progression; no PACs or no PVCs Comparison ECG Date: no prior available MDM Narrative This patient comes in as described above he was found altered. He was placed in room A1. The nurses asked me to come see him and I did promptly. He does respond and moves all 4 extremities but he may have some decrease in the right arm his last known well was several days ago. Blood sugar was 120 therefore this was unlikely related to hypoglycemia. His blood pressure has been normal/hypertensive. He was hypothermic and a Diane hugger was placed. He was given warm IV fluids . I have asked established multiple blood test to include obtained including blood cultures. I was ordered a CAT scan of his head and chest x-ray and urinalysis. He was empirically treated with Rocephin 2 g IV, I did discuss this in consultation with Scott our ED pharmacist.. He was hydrated with 1 L IV normal saline bolus. Scott ,our ED pharmacist, did pull up his record on [facility] and the patient is a DNR. I went back and talk to the patient and he acknowledges this as well and when I ask him if he would want us to do CPR put him on a breathing tube in him, he says no. There is no family contact number in the [facility] chart or here. I-STAT labs were obtained and he has a hemoglobin of 16 and electrolytes look good his BUN and creatinine are 41.5. His blood sugar was 118. Urinalysis does not suggest a UTI. CAT scan shows no acute hemorrhage or mass effect. There is a calcification which is likely meningioma but could possibly be be a calcified aneurysm. The patient has no headache. I did add angiography but I did cancel it when his CK came back significant elevated he appears to be in rhabdo and I do not think that giving him a dye load would be beneficial to his kidneys. I did discuss the case with Dr. Boyle who is a radiologist on-call and he does not see any acute findings suggest hemorrhage or rupture. The patient normal renal function. He was given additional IV fluids as his lactate was mildly elevated, his lactic acid did clear with fluid resuscitation and he received a second 1 L IV normal saline bolus. Chest x-ray does not show pneumonia. Urinalysis does not suggest a UTI. His TSH is elevated and this could be related to his thyroid potentially. There is no evidence suggest acute toxicologic process and he denies any intentional overdose when I asked him. His bio fire and COVID were negative. His labs do show elevated CK consistent with rhabdo and consistent with the story his LFTs are also moderately elevated as well. Clinically the patient has remained stable and seems to be doing better. He is off of oxygen, his temperature has improved and he seems to be mentating better. I have discussed the case in consultation with Dr. Long, who is the [facility] hospitalist , to see the patient ER for further treatment and evaluation and admission Continuous cardiac monitoring: Orders were placed in EMR for continuous cardiac monitoring and upon my evaluation, the patient was noted to be in normal sinus rhythm with a rate 72 Impression & Plan Altered level of consciousness, Diabetes mellitus type 2 in nonobese, Lab test negative for COVID-19 virus, Hypothyroidism, Rhabdomyolysis, Elevated lactic acid level Discharge Plan Visit Data Chief Complaint: Unresponsive ED Provider: Mundo Go Discharge Problem: Altered level of consciousness, Diabetes mellitus type 2 in nonobese, Lab test negative for COVID-19 virus, Hypothyroidism, Rhabdomyolysis, Elevated lactic acid level Patient Disposition: Admitted As Inpatient Discharge Instructions Interventions: ED Discharge Assessment Last Done: 07/07/23 21:29 Discharge Problem: Hypothyroidism Qualifiers: Hypothyroidism type: unspecified Qualified Code(s): E03.9 - Hypothyroidism, unspecified Rhabdomyolysis Qualifiers: Rhabdomyolysis type: non-traumatic Qualified Code(s): M62.82 - Rhabdomyolysis
[2023-07-07 17:06] LABS: Appearance Urine Clear (Clear); Bacteria Urine Automated Negative (Negative); Blood Urine 3+ (Negative); Color Urine Dark Yellow; Glucose Urine UA Negative (Negative); Ketones Urine Trace (Negative); Leukocyte Esterase Urine Negative (Negative); Nitrite Urine Negative (Negative); Protein Urine 2+ (Negative); Specific Gravity Urine 1.022 (1.000-1.030); Urobilinogen Urine Negative (Negative); pH Urine 5.5 (4.5-7.5)
[2023-07-07 17:09] LABS: Bilirubin Urine 1+ (Negative)
--- NOTE | 2023-07-07 17:10 | XRay Report ---
SINGLE VIEW CHEST CLINICAL HISTORY: Sepsis. FINDINGS: 2 AP, portable, semierect chest radiographs are obtained. No prior studies are available fo r comparison at the time of dictation. The examination is degraded by portable technique and patient rotation. The heart is enlarged noting atherosclerotic calcification of the thoracic aorta. There is prominence of the pulmonary vasculature. Scarring/atelectasis is noted at the lung bases. No airspac e consolidation or large pleural effusion is identified. No pneumothorax is seen. The skeletal struct ures are osteopenic. The bony thorax is grossly intact. IMPRESSION: 1. Cardiomegaly with prominence of the pulmonary vasculature. Correlate clinically for evidence of fl uid overload/congestive change. 2. No airspace consolidation or large pleural effusion is identified. ACT 112: Negative or not required by law. Electronically signed by: Min Boyle M.D. 07/07/2023 5:08 PM
[2023-07-07 17:15] LABS: iSTAT Creatinine 1.5 mg/dl (0.6-1.3); iSTAT Hemoglobin 16.3 g/dl (14.0-18.0); iSTAT Ionized Calcium 1.01 mmol/l (1.12-1.32)
[2023-07-07 17:39] LABS: Base Excess VBG -0.2 mEq/L; HCO3 VBG 26 mmol/L; Oxygen Saturation VBG < 60.0 %; PCO2 VBG 50 mmHg (38-50); PO2 VBG 29 mmHg; pH VBG 7.33 (7.36-7.41)
--- NOTE | 2023-07-07 17:42 | CT Scan Report ---
CT SCAN OF THE BRAIN WITHOUT IV CONTRAST CLINICAL HISTORY: Change in mental status. COMPARISON STUDY: No priors. TECHNIQUE: Unenhanced axial CT scan of the brain is performed from the vertex to the skull base. A do se lowering technique was utilized adhering to the principles of ALARA. CT DOSE: 1250.21 mGy.cm FINDINGS: Brain parenchyma: There is a 2.2 cm peripherally calcified structure in the left anterior temporal fo ssa, best seen on image #9 of the second series. This appears to extend into the suprasellar region. There is age-related involutional change noting moderate subcortical and periventricular microangiopa thic disease. There is no hemorrhage, mass effect, or evidence of acute territorial ischemia by CT cr iteria. Hall-white matter differentiation is preserved. No extra-axial fluid collection is seen. Ventricles, sulci, cisterns: Prominent secondary to involutional change. Intracranial vasculature: There is atherosclerotic calcification of the cavernous carotid and vertebr al arteries. Calvarium: Unremarkable. Sinuses and mastoids: There is trace mucosal thickening in the right maxillary antrum. The remaining visualized paranasal sinuses are clear. The mastoid air cells are well pneumatized. Orbits: The bony orbits are grossly intact. There are bilateral ocular lens implants. IMPRESSION: 1. There is no hemorrhage, mass effect, or evidence of acute territorial ischemia by CT criteria. 2. There is a 2.2 cm ovoid peripherally calcified structure in the left anterior temporal fossa. This is pathologically indeterminant, and top differential considerations include a meningioma or possibl y a large aneurysm. Correlation with a CT angiogram of the brain is recommended for further assessmen t. ACT 112: Negative or not required by law. Electronically signed by: Min Boyle M.D. 07/07/2023 5:40 PM
[2023-07-07 18:05] LABS: Acetaminophen < 3 ug/ml (10-30); Salicylate < 3.0 mg/dl (3.0-30)
[2023-07-07 18:09] LABS: Amphetamines+Metham, Urine Neg (Neg); Barbiturates, Urine Neg (Neg); Benzodiazepine, Urine Neg (Neg); Cocaine, Urine Neg (Neg); MDMA (Ecstacy), Urine Neg (Neg); Marijuana, Urine Neg (Neg); Methadone, Urine Neg (Neg); Opiate, Urine Neg (Neg); Phencyclidine, Urine Neg (Neg)
[2023-07-07 18:10] LABS: Troponin I High Sensitivity 22.6 pg/ml (0-20)
[2023-07-07 18:12] LABS: INR 1.2 (0.9-1.1); Partial Thromboplastin Ratio 0.8; Partial Thromboplastin Time 22 Seconds (21-31); Prothrombin Time 13.2 Seconds (9.0-12.0)
[2023-07-07 18:23] LABS: Albumin Level 4.5 gm/dl (3.4-5.0); Bilirubin Direct 0.4 mg/dl (0-0.2); Bilirubin,Total 1.6 mg/dl (0.2-1.0); Magnesium 2.3 mg/dl (1.7-2.4)
[2023-07-07 18:28] LABS: Adenovirus PCR Not Detected (NotDetected); Bordetella parapertussis PCR Not Detected (NotDetected); Bordetella pertussis PCR Not Detected (NotDetected); Chlamydia pneumoniae PCR Not Detected (NotDetected); Coronavirus 229E PCR Not Detected (NotDetected); Coronavirus CoV-2 (COVID19)PCR Not Detected (NotDetected); Coronavirus HKU1 PCR Not Detected (NotDetected); Coronavirus NL63 PCR Not Detected (NotDetected); Coronavirus OC43PCR Not Detected (NotDetected); Human Metapneumovirus PCR Not Detected (NotDetected); Influenza A PCR Not Detected (NotDetected); Influenza B PCR Not Detected (NotDetected); Mycoplasma pneumoniae PCR Not Detected (NotDetected); Parainfluenza Virus 1 PCR Not Detected (NotDetected); Parainfluenza Virus 2 PCR Not Detected (NotDetected); Parainfluenza Virus 3 PCR Not Detected (NotDetected); Parainfluenza Virus 4 PCR Not Detected (NotDetected); Respiratory Syncytial VirusPCR Not Detected (NotDetected); Rhinovirus/Enterovirus PCR Not Detected (NotDetected)
[2023-07-07 18:29] LABS: BUN Creatinine Ratio 29.5 (10-20); Blood Urea Nitrogen 41 mg/dl (6-23); Creatinine Clr Calc Pharmacy 43.1 ml/min; Est GFR (African American) 52.8 ml/min; Est GFR (Non-African American) 45.6 ml/min; Glucose 119 mg/dl (70-99(Fasting))
[2023-07-07 18:30] LABS: Alanine Aminotransferase 113 U/L (7-52); Alkaline Phosphatase 79 U/L (34-104); Aspartate Aminotransferase 530 U/L (13-39); Total Protein 7.4 gm/dl (6.0-8.3)
[2023-07-07 18:37] LABS: Anion Gap 18 (3-11); Carbon Dioxide 19 mmol/L (21-32); Chloride 98 mmol/L (98-107); Potassium 4.1 mmol/L (3.5-5.1); Sodium 135 mmol/L (136-145)
[2023-07-07 18:45] LABS: Creatine Kinase 14503 U/L (30-223)
[2023-07-07 19:03] LABS: Basophils # (auto) 0.06 K/uL (0.00-0.20); Basophils % (auto) 0.3 %; Eosinophils # (auto) 0.01 K/uL (0.00-0.50); Hematocrit (blood only) 46.4 % (42.0-52.0); Hemoglobin 15.8 g/dl (14.0-18.0); Immature Granulocytes # (auto) 0.85 K/uL (0.01-0.20); Immature Granulocytes % (auto) 3.9 %; Lymphocytes # (auto) 0.47 K/uL (1.20-3.40); Lymphocytes % (auto) 2.2 %; Mean Corpuscular Hgb Conc 34.1 g/dL (32.0-36.0); Mean Corpuscular Volume 96.9 fL (80.0-100.0); Mean Platelet Volume 9.9 fL (9.4-12.4); Monocytes # (auto) 0.97 K/uL (0.11-0.59); Monocytes % (auto) 4.5 %; Neutrophils # (auto) 19.42 K/uL (1.40-6.50); Neutrophils % (auto) 89.1 %; Platelet Count 320 K/uL (130-400); RDW Coefficient of Variation 13.4 % (11.5-14.5); RDW Standard Deviation 48.2 fL (36.4-46.3); Red Blood Count 4.79 M/uL (4.70-6.10); White Blood Count 21.78 K/ul (4.8-10.8)
[2023-07-07 19:19] LABS: T4 Free Thyroxine < 0.25 ng/dl (0.61-1.60)
[2023-07-07] MEDS ORDERED: LACTATED RINGER'S 1,000 ML IV ONE (20:01)
[2023-07-07] MEDS ORDERED: HYDROCORTISONE SOD SUCCINATE 100 MG/2 ML VIAL IV STA (21:00)
--- NOTE | 2023-07-07 21:01 | History & Physical Report ---
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 post GRIMES for Graves' disease Rule out brain tumor, seizure disorder as contributory factors to mentation change Rhabdomyolysis secondary to fall at home Troponin elevation, abnormal LFTs secondary to rhabdomyolysis DM 2 on oral medications, suboptimal control as of recent hemoglobin A1c of 7.5 last February 2023 BPH, as per records Probable functional disability past tobacco abuse Medical telemetry Cosyntropin stimulation test to rule out concomitant adrenal insufficiency before administering IV hydrocortisone IV levothyroxine Endocrinology consult myxedema coma Brain MRI, EEG as additional workup Monitor CPK response to IVF Follow troponin and LFTs TTE, liver ultrasound if with persistent elevation Further management pending workup results. Basal bolus insulin, ISS BG goal 1 10-1 40, carb count coverage, update hemoglobin A1c PT OT eval once medically stable DVT prophylaxis. SCDs for now re: brain tumor DNR as per patient's prior directives Total critical care time was 40 minutes. Patient brother requesting updates from providers. Seb Macejoellejessie, contact #[phone]. Text document was generated using [employer] voice recognition software. It may contain grammatical or spelling errors. Kindly contact undersigned for clarification of any documentation item in question. History of Present Illness Chief Complaint: Decreased responsiveness as per records Primary Care Provider: Dr. Art History obtained from ER provider, patient family, and records. Limited history from patient secondary to obtunded state Medical history significant for history of Graves' disease status post GRIMES, hypothyroidism, DM 2 on oral medications, BPH, skin cancer as per records,past tobacco abuse. Patient seen at [facility] PCPs office on follow-up visit last February 2023 Outpatient TSH requested by PCP noted to be 39. Patient instructed by PCP to increase maintenance Levoxyl dose from 150 to 175 mcg daily and to have labs rechecked after 1 month. Unclear if patient able to comply. Patient resides by himself and has no other immediate family member in town. Patient brother who resides in [place] has been worried about patient since patient relocated to new apartment 3 months ago. Patient not answering his phone. Outpatient providers unable to reach patient on the phone as per documentation. Outpatient documentation of patient getting lost on the way to [facility] ophthalmology office. Patient brother had local police checked on patient last month. Although police missed patient at time of apartment visit, neighbors reassured police that patient was well. Patient has not been seen by his neighbors walking outside his home as he normally does the last few days. EMS alerted to check on patient today. Patient found at home to have decreased responsiveness and have snoring respiration. Hypothermic at 94 F. SBP 100s. BSG 100s. O2 sats 80s. Patient found to be naked and incontinent of foul-smelling urine. Patient brought to the ER for evaluation. Cefepime administered at the ER. Medical History as above Surgical History : Cataract surgeries, tonsillectomy/adenoidectomy Family History : Lung cancer, testicular cancer, bladder cancer, colon cancer, stroke Personal/Social history : Past tobacco abuse, occasional EtOH intake, lives by himself Allergies Allergy/AdvReac Type Severity Reaction Status Date / Time pollen extracts Allergy Sneezing Verified 07/07/23 17:43 Home Medications Medication Instructions Recorded Confirmed Type acetaminophen 500 mg tablet 1,000 mg PO Q6 PRN Pain 07/07/23 07/07/23 History (Tylenol Extra Strength) alendronate 70 mg tablet 70 mg PO WE 07/07/23 07/07/23 History docusate sodium 100 mg capsule 100 mg PO AMHS 07/07/23 07/07/23 History levothyroxine 150 mcg tablet 150 mcg PO QAM 07/07/23 07/07/23 History metformin 500 mg tablet 500 mg PO BIDM 07/07/23 07/07/23 History Past Med/Surg History Social History Smoking Status: Unknown if ever smoked Preferred Language: Serbian Communication Ability Comment: unable to be assessed Replenisher Required: No Current Living Situation: Alone Feels Safe at Home: Yes Review of Systems Review of Systems: Could not be reliably obtained secondary to obtunded state Physical Exam Physical Exam: GENERAL: Obtunded, no respiratory distress SKIN: Normal color, cool HEENT: [place] palpebral conjunctivae, no ptosis, dry buccal mucosa NECK : Supple, no tenderness CHEST : Decreased breath sounds, no tenderness HEART : RRR, no obvious murmurs ABDOMEN: Some distention, nontender EXTREMITIES : No LE swelling/tenderness, no other conspicuous deformities noted NEUROLOGIC : Obtunded, no facial asymmetry, gait and stance not assessed Results & Data Results & Data Vital Signs (Past 12 Hours) Vital Signs Temp Pulse Pulse Resp BP BP Pulse Ox 07/07/23 20:47 82 07/07/23 20:01 146/94 H 07/07/23 20:01 88 15 98 07/07/23 20:00 82 17 07/07/23 20:00 35.6 C L 07/07/23 19:50 85 16 99 07/07/23 19:40 77 19 07/07/23 19:30 78 20 94 07/07/23 19:29 81 34 H 96 07/07/23 19:29 146/100 H 07/07/23 19:28 35.2 C L 94 H 18 146/100 H 95 07/07/23 19:20 75 25 H 97 07/07/23 19:10 82 16 97 07/07/23 19:00 80 18 97 07/07/23 18:50 73 24 99 07/07/23 18:40 77 16 97 07/07/23 18:30 76 17 99 07/07/23 18:20 88 26 H 95 07/07/23 18:10 115 H 21 97 07/07/23 18:06 79 15 148/83 H 94 07/07/23 18:03 75 13 97 07/07/23 18:00 34.5 C L 84 30 H 148/83 H 94 07/07/23 17:50 73 12 92 07/07/23 17:40 77 19 96 07/07/23 17:31 34.3 C L 73 18 156/92 H 96 07/07/23 17:31 96 07/07/23 17:31 07/07/23 17:30 80 21 96 07/07/23 17:26 104 H 17 156/92 H 95 07/07/23 17:23 84 19 96 07/07/23 17:10 73 19 95 07/07/23 17:06 76 17 144/80 H 93 07/07/23 17:00 72 18 99 07/07/23 16:51 72 07/07/23 16:50 73 23 97 07/07/23 16:49 33.8 C L 79 22 150/95 H 92 07/07/23 16:41 77 24 95 07/07/23 16:40 87 22 150/95 H 97 O2 Del Method 07/07/23 20:47 07/07/23 20:01 07/07/23 20:01 Room Air 07/07/23 20:00 07/07/23 20:00 07/07/23 19:50 07/07/23 19:40 07/07/23 19:30 07/07/23 19:29 07/07/23 19:29 07/07/23 19:28 Room Air 07/07/23 19:20 07/07/23 19:10 07/07/23 19:00 07/07/23 18:50 07/07/23 18:40 07/07/23 18:30 Room Air 07/07/23 18:20 07/07/23 18:10 07/07/23 18:06 Room Air 07/07/23 18:03 Room Air 07/07/23 18:00 Room Air 07/07/23 17:50 Room Air 07/07/23 17:40 Room Air 07/07/23 17:31 Room Air 07/07/23 17:31 Room Air 07/07/23 17:31 Room Air 07/07/23 17:30 07/07/23 17:26 Room Air 07/07/23 17:23 Room Air 07/07/23 17:10 Room Air 07/07/23 17:06 Room Air 07/07/23 17:00 Room Air 07/07/23 16:51 07/07/23 16:50 Room Air 07/07/23 16:49 Room Air 07/07/23 16:41 Room Air 07/07/23 16:40 Room Air Laboratory Results Laboratory Results WBC 21.78 K/ul (4.8-10.8) H 07/07/23 16:50 RBC 4.79 M/uL (4.70-6.10) 07/07/23 16:50 Hgb 15.8 g/dl (14.0-18.0) 07/07/23 16:50 POC Hgb 16.3 g/dl (14.0-18.0) 07/07/23 17:03 Hct 46.4 % (42.0-52.0) 07/07/23 16:50 POC Hct 48 % (42-52) 07/07/23 17:03 MCV 96.9 fL (80.0-100.0) 07/07/23 16:50 MCH 33.0 pg (25.0-34.0) 07/07/23 16:50 MCHC 34.1 g/dL (32.0-36.0) 07/07/23 16:50 RDW Std Deviation 48.2 fL (36.4-46.3) H 07/07/23 16:50 RDW Coeff of Donnie 13.4 % (11.5-14.5) 07/07/23 16:50 Plt Count 320 K/uL (130-400) 07/07/23 16:50 MPV 9.9 fL (9.4-12.4) 07/07/23 16:50 Immature Gran % (Auto) 3.9 % 07/07/23 16:50 Neut % (Auto) 89.1 % 07/07/23 16:50 Lymph % (Auto) 2.2 % 07/07/23 16:50 [place] % (Auto) 4.5 % 07/07/23 16:50 Eos % (Auto) 0.0 % 07/07/23 16:50 Baso % (Auto) 0.3 % 07/07/23 16:50 Neut # (Auto) 19.42 K/uL (1.40-6.50) H 07/07/23 16:50 Lymph # (Auto) 0.47 K/uL (1.20-3.40) L 07/07/23 16:50 [place] # (Auto) 0.97 K/uL (0.11-0.59) H 07/07/23 16:50 Eos # (Auto) 0.01 K/uL (0.00-0.50) 07/07/23 16:50 Baso # (Auto) 0.06 K/uL (0.00-0.20) 07/07/23 16:50 Immature Gran # (Auto) 0.85 K/uL (0.01-0.20) H 07/07/23 16:50 PT 13.2 Seconds (9.0-12.0) H 07/07/23 16:50 INR 1.2 (0.9-1.1) H 07/07/23 16:50 APTT 22 Seconds (21-31) 07/07/23 16:50 PTT Ratio 0.8 07/07/23 16:50 VBG pH 7.33 (7.36-7.41) L 07/07/23 17:32 VBG pCO2 50 mmHg (38-50) 07/07/23 17:32 VBG pO2 29 mmHg 07/07/23 17:32 VBG HCO3 26 mmol/L 07/07/23 17:32 VBG O2 Saturation < 60.0 % 07/07/23 17:32 VBG Base Excess -0.2 mEq/L 07/07/23 17:32 POC Sodium 136 mmol/L (135-144) 07/07/23 17:03 Sodium 135 mmol/L (136-145) L 07/07/23 16:50 POC Potassium 4.0 mmol/L (3.3-5.0) 07/07/23 17:03 Potassium 4.1 mmol/L (3.5-5.1) 07/07/23 16:50 POC Chloride 102 mmol/L (101-112) 07/07/23 17:03 Chloride 98 mmol/L (98-107) 07/07/23 16:50 Carbon Dioxide 19 mmol/L (21-32) L 07/07/23 16:50 POC Total CO2 23 mmol/L (24-31) L 07/07/23 17:03 Anion Gap 18 (3-11) H 07/07/23 16:50 POC Anion Gap 16.0 mmol/L (16-25) 07/07/23 17:03 POC BUN 40 mg/dl (7-18) H 07/07/23 17:03 BUN 41 mg/dl (6-23) H 07/07/23 16:50 Creatinine 1.39 mg/dl (0.6-1.4) 07/07/23 16:50 POC Creatinine 1.5 mg/dl (0.6-1.3) H 07/07/23 17:03 Est Cr Clr Drug Dosing 43.1 ml/min 07/07/23 16:50 Est GFR ( Amer) 52.8 ml/min 07/07/23 16:50 Est GFR (Non-Af Amer) 45.6 ml/min 07/07/23 16:50 BUN/Creatinine Ratio 29.5 (10-20) H 07/07/23 16:50 Glucose 119 mg/dl (70-99(Fasting)) H 07/07/23 16:50 POC Glucose (other) 118 mg/dl (70-99) H 07/07/23 17:03 Lactate 1.7 mmol/L (0.4-2.0) 07/07/23 19:09 Calcium 9.0 mg/dl (8.6-10.3) 07/07/23 16:50 POC Ioniz Calcium Va 1.01 mmol/l (1.12-1.32) L 07/07/23 17:03 Magnesium 2.3 mg/dl (1.7-2.4) 07/07/23 16:50 Total Bilirubin 1.6 mg/dl (0.2-1.0) H 07/07/23 16:50 Direct Bilirubin 0.4 mg/dl (0-0.2) H 07/07/23 16:50 AST 530 U/L (13-39) H 07/07/23 16:50 ALT 113 U/L (7-52) H 07/07/23 16:50 Alkaline Phosphatase 79 U/L (34-104) 07/07/23 16:50 Total Creatine Kinase 77628 U/L (30-223) H 07/07/23 16:50 Troponin I High Sens 23.1 pg/ml (0-20) H 07/07/23 19:09 B-Natriuretic Peptide 53 pg/ml (0-100) 07/07/23 16:50 Total Protein 7.4 gm/dl (6.0-8.3) 07/07/23 16:50 Albumin 4.5 gm/dl (3.4-5.0) 07/07/23 16:50 Procalcitonin 0.27 ng/ml (0-0.5) 07/07/23 16:50 TSH 35.558 uIu/ml (0.300-4.500) H 07/07/23 16:50 Free T4 < 0.25 ng/dl (0.61-1.60) L 07/07/23 16:50 Urine Color Dark Yellow 07/07/23 16:35 Urine Appearance Clear (Clear) 07/07/23 16:35 Urine pH 5.5 (4.5-7.5) 07/07/23 16:35 Ur Specific [place] 1.022 (1.000-1.030) 07/07/23 16:35 Urine Protein 2+ (Negative) H 07/07/23 16:35 Urine Glucose (UA) Negative (Negative) 07/07/23 16:35 Urine Ketones Trace (Negative) H 07/07/23 16:35 Urine Blood 3+ (Negative) H 07/07/23 16:35 Urine Nitrite Negative (Negative) 07/07/23 16:35 Urine Bilirubin 1+ (Negative) H 07/07/23 16:35 Urine Urobilinogen Negative (Negative) 07/07/23 16:35 Ur Leukocyte Esterase Negative (Negative) 07/07/23 16:35 Urine WBC (Auto) 1-5 /hpf (0-5) 07/07/23 16:35 Urine RBC (Auto) 10-30 /hpf (0-4) H 07/07/23 16:35 U Hyaline Cast (Auto) 5-10 /lpf (0-5) H 07/07/23 16:35 U Epithel Cells (Auto) 10-20 /lpf (0-5) H 07/07/23 16:35 Urine Bacteria (Auto) Negative (Negative) 07/07/23 16:35 Salicylates < 3.0 mg/dl (3.0-30) L 07/07/23 17:33 Urine Opiates Screen Neg (Neg) 07/07/23 16:35 Ur Methadone, Qual Neg (Neg) 07/07/23 16:35 Acetaminophen < 3 ug/ml (10-30) L 07/07/23 17:33 Urine Barbiturates Neg (Neg) 07/07/23 16:35 Ur Phencyclidine (PCP) Neg (Neg) 07/07/23 16:35 U Amphetamin/Meth Scrn Neg (Neg) 07/07/23 16:35 MDMA (Ecstasy) Screen Neg (Neg) 07/07/23 16:35 U Benzodiazepines Scrn Neg (Neg) 07/07/23 16:35 Ur Cocaine Metabolite Neg (Neg) 07/07/23 16:35 U Marijuana (THC) Screen Neg (Neg) 07/07/23 16:35 Ethyl Alcohol mg/dL < 10.0 mg/dl (<10.0) 07/07/23 17:33 Adenovirus (PCR) Not Detected (NotDetected) 07/07/23 16:58 B. pertussis DNA (PCR) Not Detected (NotDetected) 07/07/23 16:58 B.parapertussis DNA PCR Not Detected (NotDetected) 07/07/23 16:58 C. pneumoniae DNA (PCR) Not Detected (NotDetected) 07/07/23 16:58 Coronavirus OC43 (PCR) Not Detected (NotDetected) 07/07/23 16:58 Coronavirus HKU1 (PCR) Not Detected (NotDetected) 07/07/23 16:58 Coronavirus 229E (PCR) Not Detected (NotDetected) 07/07/23 16:58 SARS-CoV-2 (PCR) Not Detected (NotDetected) 07/07/23 16:58 Coronavirus NL63 (PCR) Not Detected (NotDetected) 07/07/23 16:58 Human Metapneumovir PCR Not Detected (NotDetected) 07/07/23 16:58 Influenza Type A (PCR) Not Detected (NotDetected) 07/07/23 16:58 Influenza Type B (PCR) Not Detected (NotDetected) 07/07/23 16:58 M. pneumoniae (PCR) Not Detected (NotDetected) 07/07/23 16:58 Parainfluenza 1 (PCR) Not Detected (NotDetected) 07/07/23 16:58 Parainfluenza 2 (PCR) Not Detected (NotDetected) 07/07/23 16:58 Parainfluenza 3 (PCR) Not Detected (NotDetected) 07/07/23 16:58 Parainfluenza 4 (PCR) Not Detected (NotDetected) 07/07/23 16:58 RSV (PCR) Not Detected (NotDetected) 07/07/23 16:58 Entero/Rhino (PCR) Not Detected (NotDetected) 07/07/23 16:[address] 07/07/23 16:43 CT SCAN OF THE BRAIN WITHOUT IV CONTRAST CLINICAL HISTORY: Change in mental status. COMPARISON STUDY: No priors. TECHNIQUE: Unenhanced axial CT scan of the brain is performed from the vertex to the skull base. A dose lowering technique was utilized adhering to the principles of ALARA. CT DOSE: 1250.21 mGy.cm FINDINGS: Brain parenchyma: There is a 2.2 cm peripherally calcified structure in the left anterior temporal fossa, best seen on image #9 of the second series. This appears to extend into the suprasellar region. There is age-related involutional change noting moderate subcortical and periventricular microangiopathic disease. There is no hemorrhage, mass effect, or evidence of acute territorial ischemia by CT criteria. Hall-white matter differentiation is preserved. No extra-axial fluid collection is seen. Ventricles, sulci, cisterns: Prominent secondary to involutional change. Intracranial vasculature: There is atherosclerotic calcification of the cavernous carotid and vertebral arteries. Calvarium: Unremarkable. Sinuses and mastoids: There is trace mucosal thickening in the right maxillary antrum. The remaining visualized paranasal sinuses are clear. The mastoid air cells are well pneumatized. Orbits: The bony orbits are grossly intact. There are bilateral ocular lens implants. IMPRESSION: 1. There is no hemorrhage, mass effect, or evidence of acute territorial ischemia by CT criteria. 2. There is a 2.2 cm ovoid peripherally calcified structure in the left anterior temporal fossa. This is pathologically indeterminant, and top differential considerations include a meningioma or possibly a large aneurysm. Correlation with a CT angiogram of the brain is recommended for further assessment. ACT 112: Negative or not required by law. Electronically signed by: Min Boyle M.D. 07/07/2023 5:40 PM Chest X-Ray 07/07/23 16:44 SINGLE VIEW CHEST CLINICAL HISTORY: Sepsis. FINDINGS: 2 AP, portable, semierect chest radiographs are obtained. No prior studies are available for comparison at the time of dictation. The examination is degraded by portable technique and patient rotation. The heart is enlarged noting atherosclerotic calcification of the thoracic aorta. There is prominence of the pulmonary vasculature. Scarring/atelectasis is noted at the lung bases. No airspace consolidation or large pleural effusion is identified. No pneumothorax is seen. The skeletal structures are osteopenic. The bony thorax is grossly intact. IMPRESSION: 1. Cardiomegaly with prominence of the pulmonary vasculature. Correlate clinically for evidence of fluid overload/congestive change. 2. No airspace consolidation or large pleural effusion is identified. ACT 112: Negative or not required by law. Electronically signed by: Min Boyle M.D. 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 Recommend MRI of the brain for further details. Medications Administered EKG as per my interpretation :Rate 75, NSR, normal axis, nonspecific T wave abnormalities, multiple artifacts
[2023-07-07] MEDS ORDERED: PROMETHAZINE HCL 6.25 MG in SODIUM CHLORIDE 0.9% 50 ML IV PRN (21:10)
[2023-07-07] MEDS ORDERED: COSYNTROPIN 250 MCG in SYRINGE 4 ML IV STA (21:21)
[2023-07-07] MEDS ORDERED: GLUCOSE 10 TAB/TUBE PO PRN (21:28)
[2023-07-07] MEDS ORDERED: CARBOHYDRATES FOR HYPOGLYCEMIA PO PRN (21:28)
[2023-07-07] MEDS ORDERED: DEXTROSE 50% 50 ML SYRINGE IV PRN (21:28)
[2023-07-07] MEDS ORDERED: GLUCAGON FOR INJ 1 MG VIAL SQ PRN (21:28)
[2023-07-07] MEDS ORDERED: GLUCOSE 40% GEL 15 GM TUBE PO PRN (21:28)
[2023-07-07] MEDS ORDERED: OPTIRAY 320 125ml IV ONE (21:43)
[2023-07-07] MEDS ORDERED: LEVOTHYROXINE SODIUM 200 MCG in SYRINGE 0 ML IV SCH ×2 (22:00→23:00)
[2023-07-07] MEDS: LANTUS PER UNIT CHARGE SQ SCH (22:02)
[2023-07-07] MEDS: INSULIN ASPART PER UNIT CHARGE SC SCH (22:03)
--- NOTE | 2023-07-07 22:19 | CT Scan Report ---
Exam(s): CTA HEAD With Contrast IV Amt: 115 ml optiray 320 EXAM: CT Angiography Head With Intravenous Contrast, With Intra-Articular Contrast CLINICAL HISTORY: Reason for exam: ant temp fossa mass ro aneurysm. TECHNIQUE: Axial computed tomographic angiography images of the head with intravenous contrast, with intra-articular contrast. CTDI is 7.06 mGy and DLP is 307.64 mGy-cm. Automated exposure control was utilized for the study. A dose lowering technique was utilized adhering to the principles of ALARA. MIP reconstructed images were created and reviewed. CONTRAST: Patient received 115 ml optiray 320 of IV contrast COMPARISON: No relevant prior studies available. FINDINGS: Right internal carotid artery: No acute findings. Intracranial segment is patent with no significant stenosis. No aneurysm. Right anterior cerebral artery: Unremarkable. No occlusion or significant stenosis. No aneurysm. Right middle cerebral artery: Unremarkable. No occlusion or significant stenosis. No aneurysm. Right posterior cerebral artery: Unremarkable. No occlusion or significant stenosis. No aneurysm. Right vertebral artery: Unremarkable as visualized. Left internal carotid artery: No acute findings. Intracranial segment is patent with no significant stenosis. No aneurysm. Left anterior cerebral artery: Unremarkable. No occlusion or significant stenosis. No aneurysm. Left middle cerebral artery: Unremarkable. No occlusion or significant stenosis. No aneurysm. Left posterior cerebral artery: Unremarkable. No occlusion or significant stenosis. No aneurysm. Left vertebral artery: Unremarkable as visualized. Basilar artery: Unremarkable. No occlusion or significant stenosis. No aneurysm. Brain: 2.3 x 2.2 cm left temporal lobe mass, this mass is not demonstrating arterial attenuation or significant enhancement. Recommend MRI of the brain for further details. 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 Recommend MRI of the brain for further details. Electronically signed by: Kate Mireles MD 07/07/23 22:18 PM
[2023-07-07] MEDS ORDERED: HYDROCORTISONE SOD SUCCINATE 100 MG/2 ML VIAL IV ONE ×2 (22:30→23:30)
[2023-07-07] MEDS ORDERED: HYDROCORTISONE SOD 100 MG in SYRINGE 0 ML IV ONE (23:30)
[2023-07-08] MEDS ORDERED: LEVOTHYROXINE SODIUM 200 MCG in SYRINGE 0 ML IV ONE
[2023-07-08 04:48] LABS: Hematocrit (blood only) 40.5 % (42.0-52.0); Hemoglobin 13.7 g/dl (14.0-18.0); Mean Corpuscular Hemoglobin 32.9 pg (25.0-34.0); Mean Corpuscular Hgb Conc 33.8 g/dL (32.0-36.0); Mean Corpuscular Volume 97.1 fL (80.0-100.0); Mean Platelet Volume 9.8 fL (9.4-12.4); Platelet Count 286 K/uL (130-400); RDW Coefficient of Variation 13.6 % (11.5-14.5); RDW Standard Deviation 49.1 fL (36.4-46.3); Red Blood Count 4.17 M/uL (4.70-6.10); White Blood Count 19.92 K/ul (4.8-10.8)
[2023-07-08 04:58] LABS: BUN Creatinine Ratio 29.8 (10-20); Calcium 7.9 mg/dl (8.6-10.3); Creatinine Clr Calc Pharmacy 45.7 ml/min; Est GFR (African American) 56.7 ml/min
[2023-07-08] MEDS ORDERED: HYDROCORTISONE SOD SUCCINATE 100 MG/2 ML VIAL IV SCH (05:00)
[2023-07-08 05:13] LABS: Albumin Globulin Ratio 1.6 (0.9-2); Albumin Level 3.7 gm/dl (3.4-5.0); Bilirubin,Total 1.1 mg/dl (0.2-1.0); Globulin 2.3 gm/dl (2.5-4.0); Troponin I High Sensitivity 32.7 pg/ml (0-20)
[2023-07-08 05:27] LABS: Basophils # (auto) 0.05 K/uL (0.00-0.20); Basophils % (auto) 0.3 %; Lymphocytes # (auto) 0.43 K/uL (1.20-3.40); Lymphocytes % (auto) 2.2 %; Monocytes # (auto) 0.92 K/uL (0.11-0.59); Monocytes % (auto) 4.6 %; Neutrophils # (auto) 18.32 K/uL (1.40-6.50); Neutrophils % (auto) 91.9 %
[2023-07-08] MEDS: HYDROCORTISONE SOD 100 MG in SYRINGE 0 ML IV SCH ×3 (06:05→21:11)
[2023-07-08 07:09] LABS: Albumin Level 3.7 gm/dl (3.4-5.0); Bilirubin Direct 0.2 mg/dl (0-0.2); Bilirubin,Total 1.1 mg/dl (0.2-1.0); Total Protein 5.9 gm/dl (6.0-8.3)
[2023-07-08 07:44] LABS: Estimated Average Glucose 157 mg/dl; Hemoglobin A1C 7.1 % (4.5-5.6)
[2023-07-08] MEDS: INSULIN ASPART PER UNIT CHARGE SC SCH ×4 (10:13→21:10)
[2023-07-08] MEDS: LANTUS PER UNIT CHARGE SQ SCH ×2 (10:13→21:11)
[2023-07-08] MEDS: LACTATED RINGER'S 1,000 ML IV SCH (10:17)
[2023-07-08] MEDS: LEVOTHYROXINE SODIUM 200 MCG in SYRINGE 0 ML IV SCH (10:17)
--- NOTE | 2023-07-08 10:34 | Hospitalist Progress Note ---
Date of Service July 08, 2023 Assessment & Plan (1) Encephalopathy: Plan Pt is an 87yoM with PMhx significant for history of Graves' disease status post GRIMES, hypothyroidism, DM 2 on oral medications, BPH, skin cancer as per records, past tobacco abuse admitted with encephalopathy. Encephalopathy Graves status post GRIMES Hypothyroidism Likely multifactorial TSH 35.558, T4 <0.[address] concerning for brain tumor, brain MRI confirming presence, likely a meningioma or schwannoma EEG pending WBC elevated >21K, UA not suggestive of infection, blood Cx x 2 pending, chest xray noting cardiomegaly but no pneumonia, c diff pending Procalcitonin not elevated lactate initially elevated at 2.6 before being wnl after fluid resuscitation Sodium 135 on admission, currently wnl Ionized evelia low at 1.01, AM trend Hgba1 of 7.1 with glucose in the 120s Tox screen unremarkable CT abd/pelvis pending, consider CT chest Symptoms possibly from myxedema coma, pt has history of hypothyroidism s/p radioactive iodine for Graves' disease Possible seizure disorder as contributory factor, EEG completed but read pending Endocrine consult pending-appreciate recs Neurology consult pending-appreciate recs No neurosurgery services in house- will likely need further evaluation for noted brain tumor Continue IV levothyroxine and hydrocortisone as ordered, appreciate endocrinology recs Elevated troponin Hs-trop elevated at 22.6 to 23.1 and currently 32.7 Repeat until downtrending EKG with NSR Echo could not be completed but did note no pericardial effusion Consider cardiology consult, [place] [id number] [place] admission, currently down to 10, 514 Continue IVF at 75 (will continue with cautious rate as echo could not be completed) AM CK trend Elevated liver enzymes Liver enzymes elevated AST 4x>ALT Alcohol level <[address] abd/pelvis for abd tenderness on exam AWSS at risk protocol (less likely) DMII Hgba1 of 7.1 with glucose in the 120s Basal bolus while hospitalized Hold home metformin CODE STATUS: DNR/DNI DVT prophylaxis: Lovenox SQ Diet: Clear liquid Dispo: PT recommending SNF Admission and Anticipated Discharge Date Admission Date: July 07, 2023 Subjective Pt seen in the AM. Was sleeping with EEG being done. Awakened during the physical exam, when abdomen was being palpated. Review of Systems Review of Systems: Unobtainable due to cognitive status Physical Exam Physical Exam: General: was sleeping undergoing EEG, easily awakened Skin: erythema noted on lower extremities Psych: Appropriate mood and affect Neuro: No gross deficits while laying in bed CV: RRR Resp: no increased effort of breathing. Abdomen: Soft, tender, awakened during that part of the exam Extremities: some erythema on lower extremities Results & Data Results & Data Vital Signs (Past 12 Hours) Vital Signs Temp Pulse Pulse Resp BP BP Pulse Ox 07/08/23 07:01 85 07/08/23 04:00 37.2 C 81 16 118/63 96 07/08/23 01:36 37.3 C 85 16 126/68 95 07/08/23 00:30 88 22 150/82 H 94 07/08/23 00:01 87 07/08/23 00:00 85 17 110/67 92 07/07/23 23:30 84 24 121/67 92 07/07/23 23:00 87 18 119/73 92 07/07/23 22:48 36.9 C 07/07/23 22:40 86 20 95 O2 Del Method 07/08/23 07:01 07/08/23 04:00 Room Air 07/08/23 01:36 Room Air 07/08/23 00:30 07/08/23 00:01 07/08/23 00:00 07/07/23 23:30 07/07/23 23:00 07/07/23 22:48 07/07/23 22:40 Room Air
--- NOTE | 2023-07-08 12:29 | XRay Report ---
KUB CLINICAL HISTORY: for MRI COMPARISON STUDY: None. FINDINGS: Pelvic calcifications favor phleboliths. The bowel gas pattern is normal. Moderate amount o f stool within the colon is noted. There is minimal stool within the rectum. No unexpected radiopaque foreign bodies are identified. Linear density projecting over the pelvis is related to the [place]. IMPRESSION: No contraindication to MRI within the abdomen or pelvis. ACT 112: Negative or not required by law. Electronically signed by: Bruno Polanco M.D. 07/08/2023 12:27 PM
[2023-07-08] MEDS ORDERED: GADOBUTROL 65ML VIAL IV ONE (12:50)
--- NOTE | 2023-07-08 13:05 | Magnetic Resonance Report ---
MR brain wo/w con CLINICAL HISTORY: tumor TECHNIQUE: Multiplanar and multisequence MR images of the brain were obtained prior to and following administration of gadolinium contrast. Comparison: Comparison is made to CTA head and neck 07/07/2023 FINDINGS: Exam is limited by patient motion. No abnormal restricted diffusion is identified. Foci of T2 and FLA IR hyperintensity are noted in the paraventricular areas consistent with chronic small vessel ischemi c disease. Ex vacuo ventriculomegaly and sulcal enlargement is noted compatible with diffuse volume l oss. There is an irregular enhancing lesion in the left anterior basal frontal lobe measuring 24 x 28 x 34 mm. A dural tail is suggested on coronal images There is no mass effect or midline shift. There is no evidence of acute intraparenchymal hemorrhage. No extra axial fluid collections are seen. The corpus callosum, pituitary gland, and cerebellar tonsils appear grossly unremarkable. Flow voids of the major intracranial arterial vessels are identified. The imaged portions of the para nasal sinuses, mastoid air cells, and orbits are unremarkable. IMPRESSION: There is an enhancing mass at the anterior basal frontal lobe extending into the temporal fossa. Oral appearance favors extra-axial process such as meningioma or schwannoma. ACT 112: Negative or not required by law. Electronically signed by: Mohan Broussard M.D. 07/08/2023 1:04 PM
[2023-07-08] MEDS ORDERED: LORazepam 1 MG in SYRINGE 0.5 ML IV PRN (16:41)
--- NOTE | 2023-07-08 16:57 | Neurology Consultation ---
Date of Consultation July 08, 2023 Assessment & Plan (1) Encephalopathy: Suspect acute encephalopathy : DD myxedema coma, infection , dehydrration , Rhabdomyolysis MRI with :There is an enhancing mass at the anterior basal frontal lobe extending into the temporal fossa. Oral appearance favors extra-axial process such as meningioma or schwannoma. This does not excert any mass effect or cerebral compression that is apparent Can obtain an EEG Priority is for correcting underlying metabolic and infectious abnormalities . Neurology will follow (2) Altered level of consciousness: Same as above Plan See above Telehealth Consultation Telehealth Information Telehealth Information: I performed this visit using a real-time telehealth connection between my location and the patients location ([facility]). After connecting through interactive tele-video, patient was identified by name and date of and/or wristband check.Patient (or authorized healthcare career representative) was informed that this was a telemedicine visit and it was being conducted confidentially over secure lines. My office door was closed and no one else was present in the room with me.Patient (or authorized healthcare career representative) provided consent to proceed with the visit, expressed an understanding of privacy and security of the telemedicine visit, and gave permission to have a hospital career representative in the room in order to assist with the visit and to conduct portions of the visit, as needed. I informed the pa tient (or authorized healthcare career representative) that I reviewed their record and presented the opportunity for them to ask any questions regarding the visit today. The patient agreed to participate. History of Present Illness Reason for Consultation: encephalopathy Requesting Physician: Marianne Valladares MD Attending Physician: Marianne Valladares MD History of Present Illness the patient is an 87 Y.O male patient with PMH of hypothyroidism , s/p ablative therapy for graves disease, unsure about cognitive status , given previous hx of getting lost. lives by himself , unsure about medication compliance . the patient was found sown after being found down, hypothermic and unresponsive after few days of not being seen by neighbors , also a brother would call and no answer . was found to have rhabdomyolysis and and is being treated for dehydration , infection. The nurse tells me that he has arrived to the floor about 1/2 hour ago, he has been sleepy, responds by opening eyes and turning to verbal and tactile stimuation. he has not spoke , he said hi, when we were assessing him but no other input. Allergies Allergy/AdvReac Type Severity Reaction Status Date / Time pollen extracts Allergy Sneezing Verified 07/07/23 17:43 Home Medications Medication Instructions Recorded Confirmed Type acetaminophen 500 mg tablet 1,000 mg PO Q6 PRN Pain 07/07/23 07/07/23 History (Tylenol Extra Strength) alendronate 70 mg tablet 70 mg PO WE 07/07/23 07/07/23 History docusate sodium 100 mg capsule 100 mg PO AMHS 07/07/23 07/07/23 History levothyroxine 150 mcg tablet 150 mcg PO QAM 07/07/23 07/07/23 History metformin 500 mg tablet 500 mg PO BIDM 07/07/23 07/07/23 History Patient History Social History Smoking Status: Unknown if ever smoked Preferred Language: Mexican Communication Ability Comment: unable to be assessed Professor Of Chemistry Required: No Current Living Situation: Alone Feels Safe at Home: Yes Review of Systems Cannot obtain due to AMS Physical Exam General NEUROLOGIC EXAMINATION: Mental Status:sleepy , lethargic, opens eyes and then closes then , says hi back , but does not answer any other questions and does not follow any commands Cranial Nerves: CN 2 - opens eyes, looks around, pupils are round and equal CN 3, 4, 6 - extra-ocular movements intact and no nystagmus CN 5 - facial sensation intact CN 7 - no facial asymmetry CN 8 - attends to calling his name CN 9, 10 - palate symmetric, normal gag CN 11 - good shoulder shrug CN 12 - tongue midline MOTOR: Strength was at least antigravity throughout, Pronator drift was absent , Hy had asterexsis,and intermittent loss of tone SENSATION: intact and symmetric to pinprick, light touch, vibration and joint position GAIT: cannot contribute COORDINATION: Cannot contribute REFLEXES: cannot assess over telemedicine Results & Data Vital Signs (Past 12 Hours) Vital Signs Temp Pulse Pulse Pulse Resp BP BP 07/08/23 16:40 07/08/23 16:01 81 07/08/23 15:57 36.6 C 82 18 116/60 07/08/23 15:25 37.5 C 87 16 111/70 07/08/23 13:31 37.5 C 87 16 127/68 07/08/23 11:10 07/08/23 11:10 07/08/23 08:30 07/08/23 08:30 37.3 C 83 16 116/56 L 07/08/23 07:01 85 Pulse Ox Pulse Ox O2 Del Method O2 Del Method 07/08/23 16:40 Room Air 07/08/23 16:01 07/08/23 15:57 94 Room Air 07/08/23 15:25 99 Room Air 07/08/23 13:31 99 Room Air 07/08/23 11:10 96 Room Air 07/08/23 11:10 98 Room Air 07/08/23 08:30 Room Air 07/08/23 08:30 99 Room Air 07/08/23 07:01 Laboratory Results Abnormal lab results 07/07/23 07/07/23 07/07/23 Range/Units 16:35 16:50 17:03 WBC 21.78 H (4.8-10.8) K/ul RBC (4.70-6.10) M/uL Hgb (14.0-18.0) g/dl Hct (42.0-52.0) % RDW Std Deviation 48.2 H (36.4-46.3) fL Neut # (Auto) 19.42 H (1.40-6.50) K/uL Lymph # (Auto) 0.47 L (1.20-3.40) K/uL [place] # (Auto) 0.97 H (0.11-0.59) K/uL Immature Gran # (Auto) 0.85 H (0.01-0.20) K/uL PT 13.2 H (9.0-12.0) Seconds INR 1.2 H (0.9-1.1) VBG pH (7.36-7.41) Sodium 135 L (136-145) mmol/L Carbon Dioxide 19 L (21-32) mmol/L POC Total CO2 23 L (24-31) mmol/L Anion Gap 18 H (3-11) POC BUN 40 H (7-18) mg/dl BUN 41 H (6-23) mg/dl POC Creatinine 1.5 H (0.6-1.3) mg/dl BUN/Creatinine Ratio 29.5 H (10-20) Glucose 119 H (70-99(Fasting)) mg/dl POC Glucose (70-99) mg/dl POC Glucose (other) 118 H (70-99) mg/dl Hemoglobin A1c 7.1 H (4.5-5.6) % Lactate 2.6 H* (0.4-2.0) mmol/L Calcium (8.6-10.3) mg/dl POC Ioniz Calcium Va 1.01 L (1.12-1.32) mmol/l Total Bilirubin 1.6 H (0.2-1.0) mg/dl Direct Bilirubin 0.4 H (0-0.2) mg/dl AST 530 H (13-39) U/L ALT 113 H (7-52) U/L Total Creatine Kinase 15123 H (30-223) U/L Troponin I High Sens 22.6 H (0-20) pg/ml Total Protein (6.0-8.3) gm/dl Globulin (2.5-4.0) gm/dl TSH 35.558 H (0.300-4.500) uIu/ml Free T4 < 0.25 L (0.61-1.60) ng/dl Urine Protein 2+ H (Negative) Urine Ketones Trace H (Negative) Urine Blood 3+ H (Negative) Urine Bilirubin 1+ H (Negative) Urine RBC (Auto) 10-30 H (0-4) /hpf U Hyaline Cast (Auto) 5-10 H (0-5) /lpf U Epithel Cells (Auto) 10-20 H (0-5) /lpf Salicylates (3.0-30) mg/dl Acetaminophen (10-30) ug/ml 07/07/23 07/07/23 07/07/23 Range/Units 17:32 17:33 19:09 WBC (4.8-10.8) K/ul RBC (4.70-6.10) M/uL Hgb (14.0-18.0) g/dl Hct (42.0-52.0) % RDW Std Deviation (36.4-46.3) fL Neut # (Auto) (1.40-6.50) K/uL Lymph # (Auto) (1.20-3.40) K/uL [place] # (Auto) (0.11-0.59) K/uL Immature Gran # (Auto) (0.01-0.20) K/uL PT (9.0-12.0) Seconds INR (0.9-1.1) VBG pH 7.33 L (7.36-7.41) Sodium (136-145) mmol/L Carbon Dioxide (21-32) mmol/L POC Total CO2 (24-31) mmol/L Anion Gap (3-11) POC BUN (7-18) mg/dl BUN (6-23) mg/dl POC Creatinine (0.6-1.3) mg/dl BUN/Creatinine Ratio (10-20) Glucose (70-99(Fasting)) mg/dl POC Glucose (70-99) mg/dl POC Glucose (other) (70-99) mg/dl Hemoglobin A1c (4.5-5.6) % Lactate (0.4-2.0) mmol/L Calcium (8.6-10.3) mg/dl POC Ioniz Calcium Va (1.12-1.32) mmol/l Total Bilirubin (0.2-1.0) mg/dl Direct Bilirubin (0-0.2) mg/dl AST (13-39) U/L ALT (7-52) U/L Total Creatine Kinase (30-223) U/L Troponin I High Sens 23.1 H (0-20) pg/ml Total Protein (6.0-8.3) gm/dl Globulin (2.5-4.0) gm/dl TSH (0.300-4.500) uIu/ml Free T4 (0.61-1.60) ng/dl Urine Protein (Negative) Urine Ketones (Negative) Urine Blood (Negative) Urine Bilirubin (Negative) Urine RBC (Auto) (0-4) /hpf U Hyaline Cast (Auto) (0-5) /lpf U Epithel Cells (Auto) (0-5) /lpf Salicylates < 3.0 L (3.0-30) mg/dl Acetaminophen < 3 L (10-30) ug/ml 07/07/23 07/08/23 07/08/23 Range/Units 21:58 04:05 06:32 WBC 19.92 H (4.8-10.8) K/ul RBC 4.17 L (4.70-6.10) M/uL Hgb 13.7 L (14.0-18.0) g/dl Hct 40.5 L (42.0-52.0) % RDW Std Deviation 49.1 H (36.4-46.3) fL Neut # (Auto) 18.32 H (1.40-6.50) K/uL Lymph # (Auto) 0.43 L (1.20-3.40) K/uL [place] # (Auto) 0.92 H (0.11-0.59) K/uL Immature Gran # (Auto) (0.01-0.20) K/uL PT (9.0-12.0) Seconds INR (0.9-1.1) VBG pH (7.36-7.41) Sodium (136-145) mmol/L Carbon Dioxide 20 L (21-32) mmol/L POC Total CO2 (24-31) mmol/L Anion Gap 13 H (3-11) POC BUN (7-18) mg/dl BUN 39 H (6-23) mg/dl POC Creatinine (0.6-1.3) mg/dl BUN/Creatinine Ratio 29.8 H (10-20) Glucose 115 H (70-99(Fasting)) mg/dl POC Glucose 110 H (70-99) mg/dl POC Glucose (other) (70-99) mg/dl Hemoglobin A1c (4.5-5.6) % Lactate (0.4-2.0) mmol/L Calcium 7.9 L (8.6-10.3) mg/dl POC Ioniz Calcium Va (1.12-1.32) mmol/l Total Bilirubin 1.1 H 1.1 H (0.2-1.0) mg/dl Direct Bilirubin (0-0.2) mg/dl AST 435 H 422 H (13-39) U/L ALT 96 H 95 H (7-52) U/L Total Creatine Kinase 29920 H (30-223) U/L Troponin I High Sens 32.7 H (0-20) pg/ml Total Protein 5.9 L (6.0-8.3) gm/dl Globulin 2.3 L (2.5-4.0) gm/dl TSH (0.300-4.500) uIu/ml Free T4 (0.61-1.60) ng/dl Urine Protein (Negative) Urine Ketones (Negative) Urine Blood (Negative) Urine Bilirubin (Negative) Urine RBC (Auto) (0-4) /hpf U Hyaline Cast (Auto) (0-5) /lpf U Epithel Cells (Auto) (0-5) /lpf Salicylates (3.0-30) mg/dl Acetaminophen (10-30) ug/ml 07/08/23 07/08/23 07/08/23 Range/Units 08:06 13:25 16:41 WBC (4.8-10.8) K/ul RBC (4.70-6.10) M/uL Hgb (14.0-18.0) g/dl Hct (42.0-52.0) % RDW Std Deviation (36.4-46.3) fL Neut # (Auto) (1.40-6.50) K/uL Lymph # (Auto) (1.20-3.40) K/uL [place] # (Auto) (0.11-0.59) K/uL Immature Gran # (Auto) (0.01-0.20) K/uL PT (9.0-12.0) Seconds INR (0.9-1.1) VBG pH (7.36-7.41) Sodium (136-145) mmol/L Carbon Dioxide (21-32) mmol/L POC Total CO2 (24-31) mmol/L Anion Gap (3-11) POC BUN (7-18) mg/dl BUN (6-23) mg/dl POC Creatinine (0.6-1.3) mg/dl BUN/Creatinine Ratio (10-20) Glucose (70-99(Fasting)) mg/dl POC Glucose 118 H 131 H 156 H (70-99) mg/dl POC Glucose (other) (70-99) mg/dl Hemoglobin A1c (4.5-5.6) % Lactate (0.4-2.0) mmol/L Calcium (8.6-10.3) mg/dl POC Ioniz Calcium Va (1.12-1.32) mmol/l Total Bilirubin (0.2-1.0) mg/dl Direct Bilirubin (0-0.2) mg/dl AST (13-39) U/L ALT (7-52) U/L Total Creatine Kinase (30-223) U/L Troponin I High Sens (0-20) pg/ml Total Protein (6.0-8.3) gm/dl Globulin (2.5-4.0) gm/dl TSH (0.300-4.500) uIu/ml Free T4 (0.61-1.60) ng/dl Urine Protein (Negative) Urine Ketones (Negative) Urine Blood (Negative) Urine Bilirubin (Negative) Urine RBC (Auto) (0-4) /hpf U Hyaline Cast (Auto) (0-5) /lpf U Epithel Cells (Auto) (0-5) /lpf Salicylates (3.0-30) mg/dl Acetaminophen (10-30) ug/ml Diagnostic Findings Head CT 07/07/23 16:43 CT SCAN OF THE BRAIN WITHOUT IV CONTRAST CLINICAL HISTORY: Change in mental status. COMPARISON STUDY: No priors. TECHNIQUE: Unenhanced axial CT scan of the brain is performed from the vertex to the skull base. A dose lowering technique was utilized adhering to the principles of ALARA. CT DOSE: 1250.21 mGy.cm FINDINGS: Brain parenchyma: There is a 2.2 cm peripherally calcified structure in the left anterior temporal fossa, best seen on image #9 of the second series. This appears to extend into the suprasellar region. There is age-related involutional change noting moderate subcortical and periventricular microangiopathic disease. There is no hemorrhage, mass effect, or evidence of acute territorial ischemia by CT criteria. Hall-white matter differentiation is preserved. No extra-axial fluid collection is seen. Ventricles, sulci, cisterns: Prominent secondary to involutional change. Intracranial vasculature: There is atherosclerotic calcification of the cavernous carotid and vertebral arteries. Calvarium: Unremarkable. Sinuses and mastoids: There is trace mucosal thickening in the right maxillary antrum. The remaining visualized paranasal sinuses are clear. The mastoid air cells are well pneumatized. Orbits: The bony orbits are grossly intact. There are bilateral ocular lens implants. IMPRESSION: 1. There is no hemorrhage, mass effect, or evidence of acute territorial ischemia by CT criteria. 2. There is a 2.2 cm ovoid peripherally calcified structure in the left anterior temporal fossa. This is pathologically indeterminant, and top differential considerations include a meningioma or possibly a large aneurysm. Correlation with a CT angiogram of the brain is recommended for further assessment. ACT 112: Negative or not required by law. Electronically signed by: Min Boyle M.D. 07/07/2023 5:40 PM Chest X-Ray 07/07/23 16:44 SINGLE VIEW CHEST CLINICAL HISTORY: Sepsis. FINDINGS: 2 AP, portable, semierect chest radiographs are obtained. No prior studies are available for comparison at the time of dictation. The examination is degraded by portable technique and patient rotation. The heart is enlarged noting atherosclerotic calcification of the thoracic aorta. There is prominence of the pulmonary vasculature. Scarring/atelectasis is noted at the lung bases. No airspace consolidation or large pleural effusion is identified. No pneumothorax is seen. The skeletal structures are osteopenic. The bony thorax is grossly intact. IMPRESSION: 1. Cardiomegaly with prominence of the pulmonary vasculature. Correlate clinically for evidence of fluid overload/congestive change. 2. No airspace consolidation or large pleural effusion is identified. ACT 112: Negative or not required by law. Electronically signed by: Min Boyle M.D. 07/07/2023 5:08 PM Head CTA 07/07/23 21:09 Exam(s): CTA HEAD With Contrast IV Amt: 115 ml optiray 320 EXAM: CT Angiography Head With Intravenous Contrast, With Intra-Articular Contrast CLINICAL HISTORY: Reason for exam: ant temp fossa mass ro aneurysm. TECHNIQUE: Axial computed tomographic angiography images of the head with intravenous contrast, with intra-articular contrast. CTDI is 7.06 mGy and DLP is 307.64 mGy-cm. Automated exposure control was utilized for the study. A dose lowering technique was utilized adhering to the principles of ALARA. MIP reconstructed images were created and reviewed. CONTRAST: Patient received 115 ml optiray 320 of IV contrast COMPARISON: No relevant prior studies available. FINDINGS: Right internal carotid artery: No acute findings. Intracranial segment is patent with no significant stenosis. No aneurysm. Right anterior cerebral artery: Unremarkable. No occlusion or significant stenosis. No aneurysm. Right middle cerebral artery: Unremarkable. No occlusion or significant stenosis. No aneurysm. Right posterior cerebral artery: Unremarkable. No occlusion or significant stenosis. No aneurysm. Right vertebral artery: Unremarkable as visualized. Left internal carotid artery: No acute findings. Intracranial segment is patent with no significant stenosis. No aneurysm. Left anterior cerebral artery: Unremarkable. No occlusion or significant stenosis. No aneurysm. Left middle cerebral artery: Unremarkable. No occlusion or significant stenosis. No aneurysm. Left posterior cerebral artery: Unremarkable. No occlusion or significant stenosis. No aneurysm. Left vertebral artery: Unremarkable as visualized. Basilar artery: Unremarkable. No occlusion or significant stenosis. No aneurysm. Brain: 2.3 x 2.2 cm left temporal lobe mass, this mass is not demonstrating arterial attenuation or significant enhancement. Recommend MRI of the brain for further details. 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 Recommend MRI of the brain for further details. Electronically signed by: Kate Mireles MD 07/07/23 22:18 PM Brain MRI 07/08/23 05:57 MR brain wo/w con CLINICAL HISTORY: tumor TECHNIQUE: Multiplanar and multisequence MR images of the brain were obtained prior to and following administration of gadolinium contrast. Comparison: Comparison is made to CTA head and neck 07/07/2023 FINDINGS: Exam is limited by patient motion. No abnormal restricted diffusion is identified. Foci of T2 and FLAIR hyperintensity are noted in the paraventricular areas consistent with chronic small vessel ischemic disease. Ex vacuo ventriculomegaly and sulcal enlargement is noted compatible with diffuse volume loss. There is an irregular enhancing lesion in the left anterior basal frontal lobe measuring 24 x 28 x 34 mm. A dural tail is suggested on coronal images There is no mass effect or midline shift. There is no evidence of acute intraparenchymal hemorrhage. No extra axial fluid collections are seen. The corpus callosum, pituitary gland, and cerebellar tonsils appear grossly unremarkable. Flow voids of the major intracranial arterial vessels are identified. The imaged portions of the paranasal sinuses, mastoid air cells, and orbits are unremarkable. IMPRESSION: There is an enhancing mass at the anterior basal frontal lobe extending into the temporal fossa. Oral appearance favors extra-axial process such as meningioma or schwannoma. ACT 112: Negative or not required by law. Electronically signed by: Mohan Broussard M.D. 07/08/2023 1:04 PM
[2023-07-08] MEDS ORDERED: VANCOMYCIN HCL 2,500 MG in SODIUM CHLORIDE 0.9% 500 ML IV ONE (17:07)
[2023-07-08] MEDS ORDERED: VANCOMYCIN CONSULT ACTIVE PRN (17:07)
[2023-07-08] MEDS ORDERED: PIPER/TAZO 4.5g in D5W MINI-B 100 ML IV ONE (17:15)
[2023-07-08] MEDS ORDERED: VANCOMYCIN HCL 1,500 MG in SODIUM CHLORIDE 0.9% 500 ML IV SCH (17:15)
[2023-07-08] MEDS ORDERED: VANCOMYCIN HCL 2,250 MG in SODIUM CHLORIDE 0.9% 500 ML IV SCH (17:30)
[2023-07-08] MEDS ORDERED: OPTIRAY 320 500ml IV ONE (17:36)
[2023-07-08] MEDS: ENOXAPARIN INJ 40 MG/0.4 ML SYR SQ SCH (17:59)
[2023-07-08] MEDS ORDERED: VANCOMYCIN HCL 2,250 MG in SODIUM CHLORIDE 0.9% 500 ML IV STA (18:13)
--- NOTE | 2023-07-08 21:58 | CT Scan Report ---
CT abd pelvis IV con only CLINICAL HISTORY: abd/pain, elevated wbc, elevated liver enzymes TECHNIQUE: Helical axial images of the abdomen and pelvis were obtained and displayed. Automated dose lowering techniques and/or adjustment according to patient size were utilized for this exam. This e xam was performed with intravenous contrast. CT DOSE: 1932.86 mGy.cm COMPARISON: None available at the time of this dictation. FINDINGS: Lower chest: Bibasilar atelectasis versus scarring is seen. There are trace bilateral pleural effusi ons. Liver: Unremarkable. No focal lesions are seen. Gallbladder and biliary tree: No calcified gallstones. Normal caliber wall. No intra- or extrahepatic biliary ductal dilation. Pancreas: Unremarkable, no focal lesions. Spleen: Unremarkable. Adrenals: Unremarkable. Kidneys and ureters: Perinephric stranding is noted bilaterally. Bladder: Aguilera catheter is seen. Bladder wall is thickened. Reproductive organs: Unremarkable. Bowel: Diverticulosis is seen without evidence of diverticulitis. Lymph nodes Retroperitoneal: Unremarkable. Pelvic: Unremarkable. Mesenteric: Unremarkable. Peritoneum: Normal. Vessels: Atherosclerotic calcifications are seen. Abdominal wall: Unremarkable. Bones: Degenerative changes in the visualized spine. IMPRESSION: 1. Thickening of the bladder wall is seen, clinical correlation is recommended to exclude cystitis. 2. Trace bilateral pleural effusions with atelectasis. 3. Diverticulosis without diverticulitis ACT 112: Negative or not required by law. Electronically signed by: Mohan Broussard M.D. 07/08/2023 9:56 PM
[2023-07-09] MEDS: PIPERACILLIN/TAZOBACTAM 4.5 GM in DEXTROSE 5% MINI-B 100 ML IV SCH ×3 (00:13→17:00)
[2023-07-09] MEDS: LACTATED RINGER'S 1,000 ML IV SCH (01:15)
[2023-07-09 04:54] LABS: Hematocrit (blood only) 36.5 % (42.0-52.0); Hemoglobin 12.5 g/dl (14.0-18.0); Mean Corpuscular Hemoglobin 32.9 pg (25.0-34.0); Mean Corpuscular Hgb Conc 34.2 g/dL (32.0-36.0); Mean Corpuscular Volume 96.1 fL (80.0-100.0); Mean Platelet Volume 9.8 fL (9.4-12.4); Platelet Count 266 K/uL (130-400); RDW Coefficient of Variation 13.7 % (11.5-14.5); White Blood Count 15.58 K/ul (4.8-10.8)
[2023-07-09 05:09] LABS: Albumin Globulin Ratio 1.7 (0.9-2); Albumin Level 3.6 gm/dl (3.4-5.0); Calcium 7.8 mg/dl (8.6-10.3); Creatinine Clr Calc Pharmacy 46.8 ml/min; Est GFR (African American) 58.3 ml/min; Est GFR (Non-African American) 50.3 ml/min; Globulin 2.1 gm/dl (2.5-4.0); Magnesium 2.2 mg/dl (1.7-2.4); Phosphorus 3.1 mg/dl (2.5-4.9); Potassium 3.5 mmol/L (3.5-5.1); Total Protein 5.7 gm/dl (6.0-8.3)
[2023-07-09 05:13] LABS: Troponin I High Sensitivity 53.1 pg/ml (0-20)
[2023-07-09 05:24] LABS: Basophils # (auto) 0.03 K/uL (0.00-0.20); Basophils % (auto) 0.2 %; Immature Granulocytes # (auto) 0.11 K/uL (0.01-0.20); Immature Granulocytes % (auto) 0.7 %; Lymphocytes # (auto) 0.39 K/uL (1.20-3.40); Lymphocytes % (auto) 2.5 %; Monocytes # (auto) 0.64 K/uL (0.11-0.59); Monocytes % (auto) 4.1 %; Neutrophils # (auto) 14.41 K/uL (1.40-6.50); Neutrophils % (auto) 92.5 %; RBC Morphology Unremarkable
[2023-07-09] MEDS: HYDROCORTISONE SOD 100 MG in SYRINGE 0 ML IV SCH (05:32)
--- NOTE | 2023-07-09 05:59 | Electrocardiogram Report ---
Test Reason : Blood Pressure : / mmHG Vent. Rate : 075 BPM Atrial Rate : 075 BPM P-R Int : 182 ms QRS Dur : 084 ms QT Int : 424 ms P-R-T Axes : 066 036 114 degrees QTc Int : 473 ms Poor data quality, interpretation may be adversely affected Normal sinus rhythm Nonspecific T wave abnormality Abnormal ECG When compared with ECG of 20-JUN-2009 10:38, Nonspecific T wave abnormality now evident in Lateral leads Confirmed by Collin Orozco ([id number]) on 07/09/2023 5:58:47 AM Referred By: REFERRED SELF Confirmed By:Collin Orozco
[2023-07-09] MEDS ORDERED: Nursing to Pharmacy Communication SCH ×2 (06:00→09:15)
[2023-07-09 06:07] LABS: T4 Free Thyroxine 0.43 ng/dl (0.61-1.60)
--- NOTE | 2023-07-09 06:25 | Electroencephalogram ---
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 EEG performed for evaluation of epileptiform activity. Home Medication List Medication Instructions Recorded Confirmed Type acetaminophen 500 mg tablet 1,000 mg PO Q6 PRN Pain 07/07/23 07/07/23 History (Tylenol Extra Strength) alendronate 70 mg tablet 70 mg PO WE 07/07/23 07/07/23 History docusate sodium 100 mg capsule 100 mg PO AMHS 07/07/23 07/07/23 History levothyroxine 150 mcg tablet 150 mcg PO QAM 07/07/23 07/07/23 History metformin 500 mg tablet 500 mg PO BIDM 07/07/23 07/07/23 History Inpatient Medication List Enoxaparin Sodium (Enoxaparin Inj 40 Mg/0.4 Ml Syr) 40 mg SQ Q24H [facility] Stop: 08/07/23 16:59 Last Admin: 07/08/23 17:59 Dose: 40 mg Documented By: MARIZA Hydrocortisone Sodium (Succinate 100 mg/ Syringe) 2 mls @ 4 mls/min IV Q8H [facility] Stop: 08/07/23 04:59 Last Admin: 07/09/23 05:32 Dose: 4 mls/min Documented By: Admin: 07/08/23 21:11 Dose: 4 mls/min Documented By: Admin: 07/08/23 13:54 Dose: 4 mls/min Documented By: Admin: 07/08/23 06:05 Dose: 4 mls/min Documented By: KALIN Levothyroxine Sodium 200 mcg/ (Syringe) 10 mls @ 2 mls/min IV Q24H NATALIA; Protocol Stop: 08/07/23 08:59 Last Admin: 07/08/23 10:17 Dose: 2 mls/min Documented By: ROLANDO Lactated Ringer's (Lr) 1,000 mls @ 75 mls/hr IV .[id number] NATALIA Stop: 07/09/23 09:59 Last Admin: 07/09/23 01:15 Dose: 75 mls/hr Documented By: Infusion: 07/09/23 01:14 Dose: Infused Documented By: Admin: 07/08/23 10:17 Dose: 75 mls/hr Documented By: ROLANDO Piperacillin Sod/Tazobactam (Sod 4.5 gm/ Dextrose) 100 mls @ 25 mls/hr IV Q8H [facility]; Protocol Stop: 07/10/23 22:59 Last Infusion: 07/09/23 04:45 Dose: Infused Documented By: Admin: 07/09/23 00:13 Dose: 25 mls/hr Documented By: MAXWELL Insulin Aspart (Insulin Aspart Per Unit Charge) 0 units SC ACHS [facility] Stop: 08/06/23 21:27 Last Admin: 07/08/23 21:10 Dose: 1 units Documented By: MAXWELL Co-signed By: ELVER Admin: 07/08/23 18:01 Dose: 1 units Documented By: MARIZA Co-signed By: MELISSA Admin: 07/08/23 13:28 Dose: Not Given Documented By: ROLANDO Co-signed By: MEGAN Admin: 07/08/23 10:13 Dose: Not Given Documented By: ROLANDO Co-signed By: MANN Admin: 07/07/23 22:03 Dose: Not Given Documented By: ALCON Insulin Glargine (Lantus Per Unit Charge) 5 units SQ BID [facility] Stop: 08/06/23 21:27 Last Admin: 07/08/23 21:11 Dose: 5 units Documented By: MAXWELL Co-signed By: ELVER Admin: 07/08/23 10:13 Dose: 5 units Documented By: ROLANDO Co-signed By: MANN Admin: 07/07/23 22:02 Dose: 5 units Documented By: ALCON Co-signed By: YELENA Discontinued Medications Gadobutrol (Gadobutrol 65ml Vial) 9.5 ml IV ONCE ONE Stop: 07/08/23 12:51 Last Admin: 07/08/23 12:51 Dose: 9.5 ml Documented By: RICKEY Hydrocortisone Sodium Succinate (Hydrocortisone Sod Succinate 100 Mg/2 Ml Vial) 100 mg IV NOW STA Stop: 07/07/23 21:01 Last Admin: 07/07/23 22:06 Dose: Not Given Documented By: ALCON Cefepime HCl (Maxipime) 20 mls @ 5 mls/min IV NOW STA Stop: 07/07/23 16:49 Last Admin: 07/07/23 16:59 Dose: 5 mls/min Documented By: MES Sodium Chloride (Nss) 1,000 mls @ 999 mls/hr IV .Q1H1M ONE Stop: 07/07/23 17:45 Last Infusion: 07/07/23 18:45 Dose: Infused Documented By: STICKER ON Admin: 07/07/23 16:57 Dose: 999 mls/hr Documented By: MES Sodium Chloride (Nss) 1,000 mls @ 999 mls/hr IV .Q1H1M ONE Stop: 07/07/23 19:03 Last Infusion: 07/07/23 20:04 Dose: Infused Documented By: Admin: 07/07/23 19:02 Dose: 999 mls/hr Documented By: YOLY Lactated Ringer's (Lr) 1,000 mls @ 75 mls/hr IV .[id number] ONE Stop: 07/08/23 09:20 Last Infusion: 07/08/23 10:17 Dose: Infused Documented By: Admin: 07/07/23 20:13 Dose: 75 mls/hr Documented By: ALCON Cosyntropin 250 mcg/ Syringe 5 mls @ 2.5 mls/min IV ONE STA Stop: 07/07/23 21:22 Last Admin: 07/07/23 21:59 Dose: 2.5 mls/min Documented By: ALCON Levothyroxine Sodium 200 mcg/ (Syringe) 10 mls @ 2 mls/min IV ONE ONE; Protocol Stop: 07/08/23 00:04 Last Admin: 07/08/23 00:22 Dose: 2 mls/min Documented By: HERBERT Hydrocortisone Sodium (Succinate 100 mg/ Syringe) 2 mls @ 4 mls/min IV ONE ONE Stop: 07/07/23 23:31 Last Admin: 07/07/23 23:46 Dose: 4 mls/min Documented By: HERBERT Piperacillin Sod/Tazobactam (Sod 4.5 gm/ Dextrose) 100 mls @ 200 mls/hr IV NOW ONE; Protocol Stop: 07/08/23 17:44 Last Infusion: 07/08/23 18:29 Dose: Infused Documented By: Admin: 07/08/23 17:58 Dose: 200 mls/hr Documented By: MARIZA Vancomycin HCl 2,250 mg/ (Sodium Chloride) 545 mls @ 200 mls/hr IV NOW STA Stop: 07/08/23 20:56 Last Infusion: 07/08/23 21:15 Dose: Infused Documented By: Admin: 07/08/23 18:29 Dose: 200 mls/hr Documented By: MARIZA Ioversol (Optiray 320 125ml) 115 ml IV ONCE ONE Stop: 07/07/23 21:44 Last Admin: 07/07/23 21:43 Dose: 115 ml Documented By: ELIJAH Ioversol (Optiray 320 500ml) 94 ml IV ONCE ONE Stop: 07/08/23 17:37 Last Admin: 07/08/23 17:37 Dose: 94 ml Documented By: PINKY Description This is a 21 electrode EEG with a single channel dedicated to limited EKG. The electrodes were placed in accordance with the International 10-20 system. REPORT: At the onset of the EEG the patient is awake. The background is disorganized but continuous. The posterior dominant rhythm is not well seen. Instead the background consist of generalized 5-7 theta activity with intermixed delta activity. Photic stimulation does not induce any abnormalities. No stage II sleep transients are seen. Interpretation IMPRESSION: This is an abnormal routine EEG due to moderate generalized background slowing suggestive of a moderate non specific encephalopathy. No epileptiform activity is seen.
[2023-07-09] MEDS: VANCOMYCIN HCL 1,250 MG in SODIUM CHLORIDE 0.9% 250 ML IV SCH (06:31)
--- NOTE | 2023-07-09 08:31 | Cardiology Consultation ---
Date of Consultation July 09, 2023 Assessment & Plan (1) Rhabdomyolysis: (2) Elevated troponin: (3) Hypothyroidism: (4) Encephalopathy: (5) Altered level of consciousness: Plan Assessment: 87 year-old male found with decreased level of consciousness and altered mental status. Hypothermic, hypoxic, and noted to elevated troponin in the setting of Rhabdomyolysis for an unknown length of time. Significant elevation in TSH with known history of Grave's disease with unclear medication compliance. 1. Rhabdomyolysis: 2. Elevated troponin: - No reported cardiac history per review of medical record. - EKG with no acute ischemic changes, non-specific T wave change. Patient was unable to cooperate for echocardiogram to assess overall LVEF, strucutre and function. Recommend repeat EKG. -CK > 6000 on admission and Troponin 53.1 likely in the setting of myocardial strain related to Rhabdo. -Continue with IV fluid resuscitation, Electrolyte management with goals of serum K > 4.0, and Magnesium of 2.0. 3. Hypothyroidism 4. Encephalopathy 5. Altered Level of consciousness: - Multi-factorial in the setting of Rhabdomyolysis, elevated WBC and lactate. Blood cultures pending. -Significant elevation of TSH; Endocrinology on consult -CT head with findings concerning of a tumor, confirmed by MRI, continued management by primary team Case has been discussed with Dr. Appiah. Further recommendations regarding plan of care as per his assessment. I spent a total of 30 minutes on the date of service in preparation, delivery, documentation of the care provided to the patient excluding any time spent in the performance of separately billed services. DIANA [facility] Cardiology [facility] Supervising Physician Co-Signing Physician Notes Supervising Physician Attestation: I have personally performed a history and physical examination on the patient. I agree with the DIANA's findings and plan as documented with the following additions. Subjective: Patient denies chest discomfort or shortness of breath. Exam: Cardiovascular: Regular rhythm, no murmurs, no edema Neuro: No focal weakness, cognitive impairment noted, difficult to determine if this is delirium or dementia Data: Repeat EKG performed today 07/09/2023 at 11:28 AM and interpret independently: Sinus rhythm at 79 bpm with first-degree AV block and occasional PACs. Baseline artifact noted due to patient's difficulty cooperating with the examination. Nonspecific diffuse T wave flattening noted. Assessment and Plan: Elevation in troponin along with elevation in CPK likely related to myocardial strain in the setting of noncardiac illness. Patient does not describe any subjective symptoms suggestive of angina. Continue supportive care and administration of hydrocortisone and levothyroxine intravenously. No further cardiac workup felt to be indicated at present. Based on my examination, I do not think the patient would cooperate with another attempted echocardiography at present however this could always be reconsidered if his ability to cooperate changes. I spent a total of 20 minutes on the date of service in preparation, delivery, and documentation of the care provided to this patient, excluding any time spent in the performance of separately billed services. Magdiel Appiah, DO History of Present Illness Reason for Consultation: Elevated Troponin Requesting Physician: Isis Herring Attending Physician: Marianne Valladares MD History of Present Illness Patient is a 87 year-old male with PMHx significant for Graves disease s/p GRIMES, hypothyroidism, DM2, and BPH that was found in his apartment with decreased responsiveness, and having a "snoring respiration" by EMS. He was also noted to by hypothermic at 94 degrees Fahrenheit, O2 sats in the 80's, naked and incontinent of foul-smelling urine. He has no family in the area, but neighbors routinely see him outside walking and therefore became concerned with he was not seen for the last few days. Last seen by his PCP in February with TSH labs at 39 with medication adjustments ordered, but unsure if patient had complied with medication therapies. Of note, he does not have a primary nursing home physician and no prior cardiac problems listed in review on the EPIC record. He also has had several no show appointments dating from Mar 2023 on. Entered patient's room today to find patient asleep with head of bed up. He did not respond to verbal stimuli, but did open his eyes to tactile. He appears very lethargic, does not answer any questions and falls back asleep. EKG on admission demonstrates NSR with non-specific T wave changes; however, there is significant artifact. Review of Telemetry shows NSR 60's to 80's. Allergies Allergy/AdvReac Type Severity Reaction Status Date / Time pollen extracts Allergy Sneezing Verified 07/07/23 17:43 Home Medications Medication Instructions Recorded Confirmed Type acetaminophen 500 mg tablet 1,000 mg PO Q6 PRN Pain 07/07/23 07/07/23 History (Tylenol Extra Strength) alendronate 70 mg tablet 70 mg PO WE 07/07/23 07/07/23 History docusate sodium 100 mg capsule 100 mg PO AMHS 07/07/23 07/07/23 History levothyroxine 150 mcg tablet 150 mcg PO QAM 07/07/23 07/07/23 History metformin 500 mg tablet 500 mg PO BIDM 07/07/23 07/07/23 History Patient History Social History Smoking Status: Unknown if ever smoked Preferred Language: Korean Communication Ability Comment: unable to be assessed Child Care Assistant Required: No Current Living Situation: Alone Feels Safe at Home: Yes Review of Systems Review of Systems: Unobtainable due to cognitive status Constitutional: as per Subjective / HPI Neurologic: as per Subjective / HPI Physical Exam Constitutional: well developed, + altered mental status and + lethargic Neck: normal visual inspection and trachea midline Respiratory: normal respiratory effort, lungs clear to auscultation Cardiovascular: RRR, no murmur, no edema Vessels: dorsalis pedis pulses present Skin: no rashes, warm and dry Neurologic: + obtunded Results & Data Vital Signs (Past 12 Hours) Vital Signs Temp Pulse Resp BP Pulse Ox O2 Del Method 07/09/23 07:57 36.6 C 67 18 150/75 H 95 Room Air 07/09/23 04:00 36.6 C 82 18 132/80 97 Room Air 07/08/23 23:35 36.8 C 79 18 126/72 93 Room Air Laboratory Results Cardiac Enzymes 07/08/23 07/09/23 07/09/23 Range/Units 18:01 00:28 04:21 AST 344 H (13-39) U/L Troponin I High Sens 52.8 H* D 56.1 H* 53.1 H* (0-20) pg/ml CBC 07/09/23 Range/Units 04:21 WBC 15.58 H (4.8-10.8) K/ul RBC 3.80 L (4.70-6.10) M/uL Hgb 12.5 L (14.0-18.0) g/dl Hct 36.5 L (42.0-52.0) % Plt Count 266 (130-400) K/uL Neut # (Auto) 14.41 H (1.40-6.50) K/uL Lymph # (Auto) 0.39 L (1.20-3.40) K/uL [place] # (Auto) 0.64 H (0.11-0.59) K/uL Eos # (Auto) 0.00 (0.00-0.50) K/uL Baso # (Auto) 0.03 (0.00-0.20) K/uL Comprehensive Metabolic Panel 07/09/23 Range/Units 04:21 Sodium 138 (136-145) mmol/L Potassium 3.5 (3.5-5.1) mmol/L Chloride 106 (98-107) mmol/L Carbon Dioxide 25 (21-32) mmol/L BUN 32 H (6-23) mg/dl Creatinine 1.28 (0.6-1.4) mg/dl Glucose 106 H (70-99(Fasting)) mg/dl Calcium 7.8 L (8.6-10.3) mg/dl AST 344 H (13-39) U/L ALT 89 H (7-52) U/L Alkaline Phosphatase 49 (34-104) U/L Total Protein 5.7 L (6.0-8.3) gm/dl Albumin 3.6 (3.4-5.0) gm/dl Intake and Output 07/08/23 07/09/23 07/09/23 22:59 06:59 14:59 Intake Total 645 / 2745 1100 / 2745 Output Total 600 / 1450 350 / 1450 Balance 45 / 1295 750 / 1295 Intake: IV 645 / 2745 1100 / 2745 Lactated Ringer's 1,000 ml @ 75 1000 / 1000 mls/hr IV .[id number] NATALIA Rx#: [id number] Piperacillin/Tazobactam 4.5 gm 100 / 200 100 / 200 In Dextrose 5% Mini-B 100 ml @ 25 mls/hr IV Q8H NATALIA Rx#: [id number] Vancomycin HCl 2,250 mg In 545 / 545 Sodium Chloride 0.9% 500 ml @ 200 mls/hr IV NOW [facility] Rx#: [id number] Output: Urine Amount (Catheter) 600 / 1450 350 / 1450 [place]ilera/Indwelling 600 / 1450 350 / 1450 Other: Other Intake Source SIPS SIPS Weight 95 kg Weight Measurement Method Built in [facility] Diagnostic Findings Echocardiogram 07/08/2023: Study attempted, technically limited due to patient's altered mental status. No Pericardial effusion Images are insufficient to allow for additional comment. EKG 07/07/23 NSR non-specific T wave abnormality in lateral leads Rate 75bpm (1) Rhabdomyolysis Rhabdomyolysis type: non-traumatic Qualified Code(s): M62.82 - Rhabdomyolysis (3) Hypothyroidism Hypothyroidism type: unspecified Qualified Code(s): E03.9 - Hypothyroidism, unspecified
[2023-07-09] MEDS ORDERED: STAT IV/IM STA (08:48)
--- NOTE | 2023-07-09 08:49 | Ultrasound Report ---
ABDOMINAL ULTRASOUND, RIGHT UPPER QUADRANT HISTORY: elevated liver enzymes. COMPARISON: Abdomen and pelvis CT 07/08/2023. FINDINGS: Pancreas: Obscured by overlying bowel gas. Liver: The liver is echogenic consistent with fatty change. Gallbladder: The gallbladder is distended and almost completely filled with sludge and a few small st ones. However, no gallbladder wall thickening. Negative sonographic Lopez sign. CBD: 5 mm. Right kidney: Obscured by overlying bowel gas. IMPRESSION: 1. Distended gallbladder which is almost completely completely filled with sludge and a few small sto airam. However, no gallbladder wall thickening. 2. Normal caliber common bile duct. 3. The pancreas and right kidney were obscured by overlying bowel gas. 4. Hepatic steatosis. ACT 112: Negative or not required by law. Electronically signed by: Jos Michaels M.D. 07/09/2023 8:47 AM
[2023-07-09] MEDS: LEVOTHYROXINE SODIUM 200 MCG in SYRINGE 0 ML IV SCH (09:32)
[2023-07-09] MEDS: INSULIN ASPART PER UNIT CHARGE SC SCH ×4 (09:32→20:54)
[2023-07-09] MEDS: CALCIUM GLUCONATE 10% 1,000 MG in SODIUM CHLOR 0.9% MINI-B 50 ML IV SCH ×2 (09:47→10:41)
--- NOTE | 2023-07-09 09:53 | Pharmacy Report ---
Pharmacy Vanc AUC Short Note - Date of Service July 09, 2023 - Assessment & Plan Assessment 87 year old M started on vancomycin/zosyn empirically given ongoing leukocytosis. Blood cultures no growth, procal negative, leukocytosis trending downward. Abnormal head CT, neurology following. CK also elevated on admission, along with elevated liver enzymes. Day #2 of antimicrobial therapy. Plan Vancomycin * AUC/CHARLINE is the preferred PK/PD target for vancomycin * AUC guided dosing is effective and associated with decreased risk of nephrotoxicity compared to traditional trough targets * Patient started on vancomycin 1250 mg iv q 24 hours - reasonable to continue dosing as dosing associated with AUC/CHARLINE of 400-600 mg/L.hr and may be associated with a 13% risk of nephrotoxicity * Antibiotics ordered only x 48 hours - will consider obtaining vancomycin level if plan is to continue therapy longer. Pharmacy will continue to follow and will adjust dose/frequency as necessary. Thank you.
[2023-07-09] MEDS: LANTUS PER UNIT CHARGE SQ SCH ×2 (09:56→20:54)
--- NOTE | 2023-07-09 10:40 | Surgery Consultation ---
Date of Consultation July 09, 2023 Assessment & Plan (1) Dilated gallbladder: Patient is a 87 yo male that presented to the [facility] ER on 07/07/23 per ER note was brought in via ambulance after being found by the police in his apartment on the ground unresponsive with a decreased temperature. Work up in the ER found patient to have Encephalopathy, Rhabdomyolysis, Elevated troponin level, and a Brain mass. Patient has a documented PMH of Hypothyroidism and type 2 diabetes, tobacco abuse, BPH and skin cancer. General surgery was consulted because an abdominal ultrasound 07/09/23 showed distended gallbladder, no wall thickening, filled with slug. U/S results: IMPRESSION: 1. Distended gallbladder which is almost completely completely filled with sludge and a few small stones. However, no gallbladder wall thickening. 2. Normal caliber common bile duct. 3. The pancreas and right kidney were obscured by overlying bowel gas. 4. Hepatic steatosis. Abd CT scan results: Gallbladder and biliary tree: No calcified gallstones. Normal caliber wall. No intra- or extrahepatic biliary ductal dilation WBC 15.5 T. Bili 1.0 AST 344 ALT 89 Total Creatine kinase 6391 Troponin 53.1 TSH 24.8 Patient is on Zosyn and Vancomycin IV Tolerating clear liquids On exam patient is oriented to person and . He reports he is in "[place] and getting worked up for communicable disease". He denies abdominal pain, N/V, fever, chills, SOB, CP. Abdomen is soft non-distended, non-tender, reports no pain with palpation. No acute surgical intervention General surgery will sign off at this time , please call with questions or concerns. As above. gallbladder does not seem to be the acute issue will s/o. please call if needed. (2) Altered level of consciousness: History of Present Illness Reason for Consultation: Distended Gallbladder on Ultrasound Requesting Physician: Dr. Valladares Attending Physician: Marianne Valladares MD History of Present Illness Patient is a 87 yo male that presented to the [facility] ER on 07/07/23 per ER note was brought in via ambulance after being found by the police in his apartment on the ground unresponsive with a decreased temperature. Work up in the ER found patient to have Encephalopathy, Rhabdomyolysis, Elevated troponin level, and a Brain mass. Patient has a documented PMH of Hypothyroidism and type 2 diabetes, tobacco abuse, BPH and skin cancer. General surgery was consulted because an abdominal ultrasound 07/09/23 showed distended gallbladder, no wall thickening. Allergies Allergy/AdvReac Type Severity Reaction Status Date / Time pollen extracts Allergy Sneezing Verified 07/07/23 17:43 Home Medications Medication Instructions Recorded Confirmed Type acetaminophen 500 mg tablet 1,000 mg PO Q6 PRN Pain 07/07/23 07/07/23 History (Tylenol Extra Strength) alendronate 70 mg tablet 70 mg PO WE 07/07/23 07/07/23 History docusate sodium 100 mg capsule 100 mg PO AMHS 07/07/23 07/07/23 History levothyroxine 150 mcg tablet 150 mcg PO QAM 07/07/23 07/07/23 History metformin 500 mg tablet 500 mg PO BIDM 07/07/23 07/07/23 History Patient History Social History Smoking Status: Unknown if ever smoked Preferred Language: Wolof Communication Ability: Effective Communication Ability Comment: unable to be assessed Occupational Therapy Asst Required: No Current Living Situation: Alone Feels Safe at Home: Yes Assistive Devices: Cane Review of Systems Constitutional: no fever and no chills Respiratory: no dyspnea Cardiovascular: no chest pain Gastrointestinal: no abdominal pain, no nausea and no vomiting Integumentary: no rash Physical Exam Physical Exam: patient resting in bed , alert to verbal stimuli Constitutional: cooperative and comfortable; no acute distress ENMT: external ear and nose normal, oropharynx normal Respiratory: normal respiratory effort and able to speak in complete sentences; no respiratory distress Cardiovascular: Rate/Rhythm: regular rate Gastrointestinal (Abdomen): Inspection/Auscultation: abdomen normal to inspection; abdomen not distended Percussion/Palpation: abdomen soft; abdomen nontender, no guarding and abdomen not firm Neurologic: moves all extremities, awake and + confused Psychiatric: Orientation: alert, oriented to person, oriented to place and cooperative; + not oriented to time Results & Data Vital Signs (Past 12 Hours) Vital Signs Temp Pulse Pulse Resp BP Pulse Ox O2 Del Method 07/09/23 07:57 97.9 F 67 18 150/75 H 95 Room Air 07/09/23 07:30 72 07/09/23 04:00 97.9 F 82 18 132/80 97 Room Air 07/08/23 23:35 98.2 F 79 18 126/72 93 Room Air Diagnostic Findings [facility], [place] [phone] Ultrasound Report Patient: PAWAN ARANDA Admit Date: 07/07/23 MR#: [id number] Address1: [address] [facility] Acct ID:[id number] Address2: Date: 1935 [facility] Zip: [place] [address] Age: 87 Location: Sex: M Room/Bed: [facility] Att Phy: Marianne Valladares MD Diagnosis: ENCEPHELOPATHY, MYXEDEMA COMA Shweta Phy: Naseem Art MD Service Date: 07/09/23 Fam Phy: Interpreting Phy: Jos Michaels MDAdmit Phy: Juan C Rice MD Ordering Phy: Marianne Valladares MD cc: ~ ABDOMINAL ULTRASOUND, RIGHT UPPER QUADRANT HISTORY: elevated liver enzymes. COMPARISON: Abdomen and pelvis CT 07/08/2023. FINDINGS: Pancreas: Obscured by overlying bowel gas. Liver: The liver is echogenic consistent with fatty change. Gallbladder: The gallbladder is distended and almost completely filled with sludge and a few small stones. However, no gallbladder wall thickening. Negative sonographic Lopez sign. CBD: 5 mm. Right kidney: Obscured by overlying bowel gas. IMPRESSION: 1. Distended gallbladder which is almost completely completely filled with sludge and a few small stones. However, no gallbladder wall thickening. 2. Normal caliber common bile duct. 3. The pancreas and right kidney were obscured by overlying bowel gas. 4. Hepatic steatosis. ACT 112: Negative or not required by law. Electronically signed by: Jos Michaels M.D. 07/09/2023 8:47 AM Dictated: 07/09/2345 Transcribed: 07/09/23 0845 [facility], [place] [phone] CT Scan Report Patient: PAWAN ARANDA Admit Date: 07/07/23 MR#: [id number] Address1: [address] [facility] Acct ID:[id number] Address2: Date: 1935 [facility] Zip: [place] [address] Age: 87 Location: 2N Sex: M Room/Bed: [facility] Att Phy: Marianne Valladares MD Diagnosis: ENCEPHELOPATHY, MYXEDEMA COMA Shweta Phy: Naseem Art MD Service Date: 07/08/23 [facility] Phy: Interpreting Phy: Mohan Broussard [facility] Phy: Juan C Rice MD Ordering Phy: Marianne Valladares MD cc: ~ CT abd pelvis IV con only CLINICAL HISTORY: abd/pain, elevated wbc, elevated liver enzymes TECHNIQUE: Helical axial images of the abdomen and pelvis were obtained and displayed. Automated dose lowering techniques and/or adjustment according to patient size were utilized for this exam. This exam was performed with intravenous contrast. CT DOSE: 1932.86 mGy.cm COMPARISON: None available at the time of this dictation. FINDINGS: Lower chest: Bibasilar atelectasis versus scarring is seen. There are trace bilateral pleural effusions. Liver: Unremarkable. No focal lesions are seen. Gallbladder and biliary tree: No calcified gallstones. Normal caliber wall. No intra- or extrahepatic biliary ductal dilation. Pancreas: Unremarkable, no focal lesions. Spleen: Unremarkable. Adrenals: Unremarkable. Kidneys and ureters: Perinephric stranding is noted bilaterally. Bladder: Aguilera catheter is seen. Bladder wall is thickened. Reproductive organs: Unremarkable. Bowel: Diverticulosis is seen without evidence of diverticulitis. Lymph nodes Retroperitoneal: Unremarkable. Pelvic: Unremarkable. Mesenteric: Unremarkable. Peritoneum: Normal. Vessels: Atherosclerotic calcifications are seen. Abdominal wall: Unremarkable. Bones: Degenerative changes in the visualized spine. IMPRESSION: 1. Thickening of the bladder wall is seen, clinical correlation is recommended to exclude cystitis. 2. Trace bilateral pleural effusions with atelectasis. 3. Diverticulosis without diverticulitis ACT 112: Negative or not required by law. Electronically signed by: Mohan Broussard M.D. 07/08/2023 9:56 PM Dictated: 07/08/232147 Transcribed: 07/08/232147 PG Care Time/CCT Total # of Minutes Spent Total Time Spent with Patient: Total time spent is greater than 50% in coordination of care (as documented) at patient's floor/unit and/or counseling patient: Coding Level of Care Code 69153 INT INP/OBS CARE MIN Diagnoses Dilated gallbladder K82.8 Altered level of consciousness R40.4
[2023-07-09] MEDS: HYDROCORTISONE SOD 50 MG in SYRINGE 0 ML IV SCH ×2 (13:57→20:55)
[2023-07-09] MEDS: ACETAMINOPHEN 500 MG TAB PO PRN (16:15)
--- NOTE | 2023-07-09 16:24 | Hospitalist Progress Note ---
Date of Service July 09, 2023 Assessment & Plan (1) Encephalopathy: Plan Pt is an 87yoM with PMhx significant for history of Graves' disease status post GRIMES, hypothyroidism, DM 2 on oral medications, BPH, skin cancer as per records, past tobacco abuse admitted with encephalopathy. Encephalopathy Graves status post GRIMES Hypothyroidism Likely multifactorial TSH 35.558, T4 <0.[address] concerning for brain tumor, brain MRI confirming presence, likely a meningioma or schwannoma EEG- no seizures, notes encephalopathy On admission, WBC elevated >21K, UA not suggestive of infection, blood Cx x 2 with NGTD, chest xray noting cardiomegaly but no pneumonia, c diff pending Procalcitonin not elevated lactate initially elevated at 2.6 before being wnl after fluid resuscitation Sodium 135 on admission, currently wnl Ionized evelia low at 1.01, AM trend Hgba1 of 7.1 with glucose in the 120s Tox screen unremarkable CT abd/pelvis with noted gallbladder with sludge and stones causing distention, general surgery consult placed Symptoms possibly from myxedema coma, pt has history of hypothyroidism s/p radioactive iodine for Graves' disease -Discussed with Endocrinology Dr Grider on 07/09 -Does not believe this is myxedema coma but states unsure of cause -Recommended reducing dose of levothyroxine to po 100mcg or IV 50mcg -Advised to discontinue hydrocortisone, ok to taper to half the dose over the next 24 hours before stopping completely -stated that it was of utmost importance pt's dispo to place that can ensure compliance with thyroid medication. Pt currently recommending SNF Neurology consulted- advising metabolic encephalopathy. Brain mass not cause of symptoms No neurosurgery services in house- will likely need further evaluation for noted brain tumor Transitioned to po levothyroxine 100mcg, Endocrine noted no need to trend thyroid levels as will be variable Taper off hydrocortisone Elevated troponin Hs-trop elevated at 22.6 to 23.1 to 56.1 before downtrending to 53.1 EKG with NSR Echo could not be completed but did note no pericardial effusion Doubt ACS Cardiology consult -trop elevation in setting of myocardial strain with current illness -no further cardiology intervention -likely pt will not cooperate with repeating the echo but can try again at a later time if he will cooperate/ [place] [address] [place] admission, trended down to 10, 514. Now 6391 Continue IVF at 75 (will continue with cautious rate as echo could not be completed) AM CK trend until wnl Elevated liver enzymes Liver enzymes elevated AST 4x>ALT Alcohol level <10 Liver US ordered- noted distended gallbladder with sludge and stones CT abd/pelvis noting possible cystitis AWSS at risk protocol (less likely) DMII Hgba1 of 7.1 with glucose in the 120s Basal bolus while hospitalized Hold home metformin Glycemic consult placed as pt is diabetic on steroids CODE STATUS: DNR/DNI DVT prophylaxis: Lovenox SQ Diet: Clear liquid Dispo: PT recommending SNF Admission and Anticipated Discharge Date Admission Date: July 07, 2023 Subjective Pt seen in the AM. Was more awake, speech incomprehensible some of the time. However was able to recognize his brother's name and states he wants us to call. Pt alert and oriented to self only. States he wants "to get out of here" Review of Systems Review of Systems: All systems reviewed & are unremarkable except as noted in Subjective Physical Exam Physical Exam: General: Awake Skin: erythema noted on lower extremities Psych: Appropriate mood and affect Neuro: speech sometimes incomprehensible CV: RRR Resp: no increased effort of breathing. Abdomen: Soft, nontender today Extremities: some erythema on lower extremities Results & Data Results & Data Vital Signs (Past 12 Hours) Vital Signs Temp Pulse Pulse Resp BP Pulse Ox O2 Del Method 07/09/23 14:40 36.6 C 52 L 16 151/76 H 97 Room Air 07/09/23 14:00 70 07/09/23 11:04 36.6 C 66 18 137/86 96 Room Air 07/09/23 08:00 Room Air 07/09/23 07:57 36.6 C 67 18 150/75 H 95 Room Air 07/09/23 07:30 72
[2023-07-09] MEDS ORDERED: PHARMACY GLYCEMIC MGMT CONSULT PRN (16:55)
[2023-07-09] MEDS: ENOXAPARIN INJ 40 MG/0.4 ML SYR SQ SCH (17:00)
[2023-07-10] MEDS: PIPERACILLIN/TAZOBACTAM 4.5 GM in DEXTROSE 5% MINI-B 100 ML IV SCH ×2 (00:39→09:03)
[2023-07-10] MEDS: HYDROCORTISONE SOD 50 MG in SYRINGE 0 ML IV SCH ×2 (06:03→12:44)
[2023-07-10] MEDS: ACETAMINOPHEN 500 MG TAB PO PRN (06:03)
[2023-07-10] MEDS: LEVOTHYROXINE SODIUM 100 MCG TABLET PO SCH (06:04)
[2023-07-10] MEDS: VANCOMYCIN HCL 1,250 MG in SODIUM CHLORIDE 0.9% 250 ML IV SCH (06:04)
[2023-07-10 06:58] LABS: Basophils # (auto) 0.01 K/uL (0.00-0.20); Basophils % (auto) 0.1 %; Immature Granulocytes # (auto) 0.09 K/uL (0.01-0.20); Immature Granulocytes % (auto) 0.7 %; Lymphocytes # (auto) 0.43 K/uL (1.20-3.40); Lymphocytes % (auto) 3.4 %; Mean Corpuscular Hemoglobin 33.3 pg (25.0-34.0); Mean Corpuscular Hgb Conc 35.1 g/dL (32.0-36.0); Mean Corpuscular Volume 94.9 fL (80.0-100.0); Mean Platelet Volume 9.8 fL (9.4-12.4); Monocytes # (auto) 0.81 K/uL (0.11-0.59); Monocytes % (auto) 6.3 %; Neutrophils # (auto) 11.42 K/uL (1.40-6.50); Neutrophils % (auto) 89.5 %; Platelet Count 263 K/uL (130-400); RDW Coefficient of Variation 13.7 % (11.5-14.5); RDW Standard Deviation 47.3 fL (36.4-46.3); White Blood Count 12.76 K/ul (4.8-10.8)
[2023-07-10 07:53] LABS: Albumin Globulin Ratio 1.8 (0.9-2); Albumin Level 3.5 gm/dl (3.4-5.0); BUN Creatinine Ratio 19.8 (10-20); Bilirubin,Total 1.2 mg/dl (0.2-1.0); Calcium 7.9 mg/dl (8.6-10.3); Creatinine Clr Calc Pharmacy 61.1 ml/min; Est GFR (African American) 73.3 ml/min; Est GFR (Non-African American) 63.2 ml/min; Magnesium 2.2 mg/dl (1.7-2.4); Phosphorus 2.1 mg/dl (2.5-4.9); Potassium 2.9 mmol/L (3.5-5.1); Total Protein 5.5 gm/dl (6.0-8.3)
--- NOTE | 2023-07-10 08:12 | Cardiology Progress Note ---
Date of Service July 10, 2023 Assessment & Plan (1) Rhabdomyolysis: (2) Elevated troponin: (3) Hypothyroidism: (4) Encephalopathy: (5) Altered level of consciousness: Plan Assessment: 87 year-old male found with decreased level of consciousness and altered mental status. Hypothermic, hypoxic, and noted to elevated troponin in the setting of Rhabdomyolysis for an unknown length of time. Significant elevation in TSH with known history of Grave's disease with unclear medication compliance, is awake and alert to person and place today. 1. Rhabdomyolysis: 2. Elevated troponin: - No reported cardiac history per review of medical record, patient able to confirm this today. - EKG with no acute ischemic changes, non-specific T wave change. Patient was unable to cooperate for echocardiogram to assess overall LVEF, structure and function. Recommend repeat EKG. -CK > 6000 on admission and Troponin 53.1 likely in the setting of myocardial strain related to Rhabdo. -Continue with IV fluid resuscitation, Electrolyte management with goals of serum K > 4.0, and Magnesium of 2.0 - Serum K 2.9, will replace with IV K-Riders and repeat BMP around 3pm. 3. Hypothyroidism 4. Encephalopathy 5. Altered Level of consciousness: -Improved mentation today. Awake, alert and oriented to person, and place. Able to provide details of his overall history (recently moving, where his brothers live), but no recall of the acute event. - Multi-factorial in the setting of Rhabdomyolysis, elevated WBC and lactate. Blood cultures pending. -Significant elevation of TSH; Endocrinology on consult -CT head with findings concerning of a tumor, confirmed by MRI, continued management by primary team Case has been discussed with Dr. Appiah. Further recommendations regarding plan of care as per his assessment. I spent a total of 30 minutes on the date of service in preparation, delivery, documentation of the care provided to the patient excluding any time spent in the performance of separately billed services. DIANA [place] [facility] Admission and Anticipated Discharge Date Admission Date: July 07, 2023 Supervising Physician Co-Signing Physician Notes Supervising Physician Attestation: I have personally performed a history and physical examination on the patient. I agree with the DIANA's findings and plan as documented with the following additions. Subjective: Only complaint is right hip / knee pain. Poor historian. Aguilera catheter in place draining clear yellow urine. Exam: Cardiovascular regular rhythm, no murmurs, no edema Data: Telemetry reveals sinus rhythm in the 60s to 70s. Telemetry is limited due to artifact. Due to the patient's difficulty with maintaining his telemetry wires, they are affixed to his back. Potassium 2.2 CPK has trended down from initial value of 14,503 units/L to 2911 units/L today. Assessment and Plan: Mild troponin elevation, felt to be due to myocardial strain in setting of noncardiac illness. Hypokalemia -Supplement potassium. IV replacement ordered. -no additional cardiac testing felt to be inicated at present. I spent a total of 20 minutes on the date of service in preparation, delivery, and documentation of the care provided to this patient, excluding any time spent in the performance of separately billed services. Magdiel Appiah, Subjective 07/10/23: Patient awake, alert and oriented to person, and place today upon entering the patient's room. Denies any chest pain, pressure palpitations, or breathing concerns. He is calm and currently feeding himself a cup of sorbet. Patient knows where is lives, and can recall a remote history of having to move to his new apartment which is all appropriate in review of his last PCP note dating back to February 2023. His speech is slightly garbled at times. He has no recall of any events leading to him being on the floor, and no recall of being on the floor or EMS coming to get him. He endorses some mild right hip pain, suspect in part to known Rhabdo. Labs today show some improvement in WBC's, H/H stable, serum K markedly low 2.9. Telemetry overnight shows SR 60's-70's, currently NSR rates 70's Review of Systems Review of Systems: All systems reviewed & are unremarkable except as noted in HPI & below Physical Exam Constitutional: WD/WN, vitals as above Neck: normal visual inspection and trachea midline Respiratory: normal respiratory effort, lungs clear to auscultation Cardiovascular: RRR, no murmur, no edema Vessels: dorsalis pedis pulses present; no JVD Skin: no rashes, warm and dry Psychiatric: Orientation: alert, oriented to person and oriented to place Apperance: appeared stated age Eye Contact: good eye contact Affect: euthymic affect Thought Process: + tangential thought process Results & Data Vital Signs (Past 12 Hours) Vital Signs Temp Pulse Pulse Resp BP BP Pulse Ox 07/10/23 07:46 72 07/10/23 07:45 36.4 C L 71 18 155/75 H 95 07/10/23 03:58 36.4 C L 69 18 132/75 93 07/09/23 23:25 36.6 C 73 18 137/67 93 07/09/23 22:31 65 07/09/23 20:37 O2 Del Method 07/10/23 07:46 07/10/23 07:45 Room Air 07/10/23 03:58 Room Air 07/09/23 23:25 Room Air 07/09/23 22:31 07/09/23 20:37 Room Air Laboratory Results Cardiac Enzymes 07/10/23 Range/Units 05:41 AST 250 H (13-39) U/L CBC 07/10/23 Range/Units 05:41 WBC 12.76 H (4.8-10.8) K/ul RBC 3.90 L (4.70-6.10) M/uL Hgb 13.0 L (14.0-18.0) g/dl Hct 37.0 L (42.0-52.0) % Plt Count 263 (130-400) K/uL Neut # (Auto) 11.42 H (1.40-6.50) K/uL Lymph # (Auto) 0.43 L (1.20-3.40) K/uL [place] # (Auto) 0.81 H (0.11-0.59) K/uL Eos # (Auto) 0.00 (0.00-0.50) K/uL Baso # (Auto) 0.01 (0.00-0.20) K/uL Comprehensive Metabolic Panel 07/10/23 Range/Units 05:41 Sodium 140 (136-145) mmol/L Potassium 2.9 L (3.5-5.1) mmol/L Chloride 105 (98-107) mmol/L Carbon Dioxide 28 (21-32) mmol/L BUN 21 (6-23) mg/dl Creatinine 1.06 (0.6-1.4) mg/dl Glucose 93 (70-99(Fasting)) mg/dl Calcium 7.9 L (8.6-10.3) mg/dl AST 250 H (13-39) U/L ALT 81 H (7-52) U/L Alkaline Phosphatase 54 (34-104) U/L Total Protein 5.5 L (6.0-8.3) gm/dl Albumin 3.5 (3.4-5.0) gm/dl Intake and Output 07/09/23 07/10/23 07/10/23 22:59 06:59 14:59 Intake Total 200 / 1452.5 100 / 1452.5 275 / 275 Output Total 650 / 1550 300 / 1550 Balance -450 / -97.5 -200 / -97.5 275 / 275 Intake: IV 200 / 1452.5 100 / 1452.5 275 / 275 Piperacillin/Tazobactam 4.5 gm 200 / 300 100 / 300 In Dextrose 5% Mini-B 100 ml @ 25 mls/hr IV Q8H [facility] Rx#: [id number] Vancomycin HCl 1,250 mg In 275 / 275 Sodium Chloride 0.9% 250 ml @ 200 mls/hr IV Q24H [facility] Rx#: [id number] Output: Urine Amount (Catheter) 650 / 950 300 / 950 Aguilera/Indwelling 650 / 950 300 / 950 Other: Other Intake Source SIPS SIPS Weight 96.1 kg Weight Measurement Method Built in [facility] (1) Rhabdomyolysis Rhabdomyolysis type: non-traumatic Qualified Code(s): M62.82 - Rhabdomyolysis (3) Hypothyroidism Hypothyroidism type: unspecified Qualified Code(s): E03.9 - Hypothyroidism, unspecified
[2023-07-10] MEDS ORDERED: POTASSIUM CHLORIDE / WTR 10 MEQ/100 ML PLCT IV SCH (08:30)
[2023-07-10] MEDS: INSULIN ASPART PER UNIT CHARGE SC SCH ×4 (08:31→21:24)
[2023-07-10] MEDS: LANTUS PER UNIT CHARGE SQ SCH (09:03)
[2023-07-10] MEDS ORDERED: POTASSIUM PHOS 3 MMOL/1 ML INFUSION IV STA (09:09)
[2023-07-10] MEDS: POTASSIUM CHLORIDE / WTR 10 MEQ/100 ML PLCT IV SCH ×2 (09:53→10:50)
[2023-07-10] MEDS ORDERED: POTASSIUM PHOSPHATE 24 MMOL in SODIUM CHLORIDE 0.9% 500 ML IV ONE (11:30)
[2023-07-10] MEDS ORDERED: ACETAMINOPHEN 1,000 MG/100 ML VIAL IV PRN (14:02)
--- NOTE | 2023-07-10 14:57 | Pharmacy Report ---
Pharmacy Glycemic Short Note 2 - Date of Service July 10, 2023 - Glycemic Short BSG Results (Last 24 hours): 07/09/23 07/09/23 07/10/23 16:30 20:45 05:41 Glucose 93 POC Glucose 116 H 131 H 07/10/23 07/10/23 08:13 11:56 Glucose POC Glucose 109 H 147 H OUTPATIENT ANTIDIABETIC REGIMEN: * metformin 500 mg bid ASSESSMENT: * 87 year old admitted with encephalopathy. Stared on steroids, now tapering hydrocortisone dosing. Patient stable on current insulin regimen last couple of days. Plan to continue same parameters. Will add hold parameter for Lantus in case BSGs start to trend downward. PLAN FOR INPATIENT GLYCEMIC CONTROL: * Hold outpatient oral diabetes medications * Basal insulin * Lantus 0-5 units SQ BID * Bolus insulin * NovoLog per scale ACHS or Q6hrs while NPO * Goal Range: Low 110 mg/dL - High 140 mg/dL * Correction Factor: 25 mg/dL/unit * Nutritional / Prandial insulin per carb ratio of 1 unit per 15 grams CHO consumed
--- NOTE | 2023-07-10 15:01 | Hospitalist Progress Note ---
Date of Service July 10, 2023 Assessment & Plan (1) Encephalopathy: Plan Pt is an 87yoM with PMhx significant for history of Graves' disease status post GRIMES, hypothyroidism, DM 2 on oral medications, BPH, skin cancer as per records, past tobacco abuse admitted with encephalopathy. Encephalopathy Graves status post GRIMES Hypothyroidism Likely multifactorial TSH 35.558, T4 <0.[address] concerning for brain tumor, brain MRI confirming presence, likely a meningioma or schwannoma EEG- no seizures, notes encephalopathy White count was elevated to 21 K without any evidence of infection in UA or chest x-ray or CT of the abdomen Procalcitonin not elevated lactate initially elevated at 2.6 before being wnl after fluid resuscitation Started with intravenous Zosyn and vancomycin and blood cultures were obtained Blood cultures came back negative and antibiotics have been stopped Tox screen unremarkable Suspected myxedema coma-has been ruled out Symptoms possibly from myxedema coma, pt has history of hypothyroidism s/p radioactive iodine for Graves' disease -Discussed with Endocrinology Dr Grider on 07/09 -Does not believe this is myxedema coma but states unsure of cause -Recommended reducing dose of levothyroxine to po 100mcg or IV 50mcg -Advised to discontinue hydrocortisone, ok to taper to half the dose over the next 24 hours before stopping completely -stated that it was of utmost importance pt's dispo to place that can ensure compliance with thyroid medication. PT currently recommending SNF Meningioma/schwannoma MRI showed-There is an enhancing mass at the anterior basal frontal lobe extending into the temporal fossa. Oral appearance favors extra-axial process such as meningioma or schwannoma. Neurology consulted- advising metabolic encephalopathy. Brain mass not cause of symptoms No neurosurgery services in house- will likely need further evaluation for noted brain tumor. Will refer to neurosurgery as an outpatient Transitioned to po levothyroxine 100mcg, Endocrine noted no need to trend thyroid levels as will be variable Taper off hydrocortisone Possible cholecystitis-ruled out CT abd/pelvis with noted gallbladder with sludge and stones causing distention, general surgery consult placed-appreciate input and recommendation Elevated troponin Hs-trop elevated at 22.6 to 23.1 to 56.1 before downtrending to 53.1 EKG with NSR Echo could not be completed but did note no pericardial effusion Doubt [facility] Cardiology consult -trop elevation in setting of myocardial strain with current illness -no further cardiology intervention -likely pt will not cooperate with repeating the echo but can try again at a later time if he will cooperate/ Denies any more cardiac [place] [address] [place] admission, trended down to 10, 514. Now 6391 Continue IVF at 75 (will continue with cautious rate as echo could not be completed) CK level has been down to 2911 Elevated liver enzymes Liver enzymes elevated AST 4x>ALT Alcohol level <10 Liver US ordered- noted distended gallbladder with sludge and stones CT abd/pelvis noting possible cystitis LFTs are improving and will monitor DMII Hgba1 of 7.1 with glucose in the 120s Basal bolus while hospitalized Hold home metformin Glycemic consult placed as pt is diabetic on steroids CODE STATUS: DNR/DNI DVT prophylaxis: Lovenox SQ Diet: Clear liquid Dispo: PT recommending SNF Admission and Anticipated Discharge Date Admission Date: July 07, 2023 Subjective 07/10/2023 The patient was seen and examined in medical telemetry unit He has been feeling much better today and denies any significant symptoms except right ankle pain and generalized pain which is very nonspecific Has been eating and drinking and feeding himself Denies any headache, blurred vision, any numbness and or tingling involving the extremities Remains generally weak Review of Systems Review of Systems: All systems reviewed and are unremarkable except as noted below Physical Exam Physical Exam: Lying in bed with acute distress secondary to pain in the right ankle Constitutional: well developed, well nourished, + ill appearing and average body habitus Eyes: PERRL, conjunctivae normal, anicteric sclerae ENMT: external ear and nose normal, oropharynx normal Respiratory: no respiratory distress Auscultation: lungs clear to auscultation bilaterally Cardiovascular: Rate/Rhythm: regular rate, regular rhythm and + tachycardic Heart Sounds: normal S1 and normal S2; no murmur Extremities: no edema Gastrointestinal (Abdomen): Inspection/Auscultation: normal bowel sounds; abdomen not distended Percussion/Palpation: abdomen soft; abdomen nontender Musculoskeletal: No acute arthritis involving any of the joint. The dorsal part of ankle is bruised from pressure due to the other foot. Neurologic: normal touch/pain/proprioception, moves all extremities and + focal motor deficit (Less power and movement involving the left-sided extremities) Lymphatic: no cervical or axillary lymphadenopathy Results & Data Results & Data Vital Signs (Past 12 Hours) Vital Signs Temp Pulse Pulse Resp BP BP Pulse Ox 07/10/23 11:22 36.6 C 71 18 141/82 H 96 07/10/23 09:34 07/10/23 07:46 72 07/10/23 07:45 36.4 C L 71 18 155/75 H 95 07/10/23 03:58 36.4 C L 69 18 132/75 93 O2 Del Method 07/10/23 11:22 Room Air 07/10/23 09:34 Room Air 07/10/23 07:46 07/10/23 07:45 Room Air 07/10/23 03:58 Room Air Laboratory Results Short CBC 07/10/23 Range/Units 05:41 WBC 12.76 H (4.8-10.8) K/ul Hgb 13.0 L (14.0-18.0) g/dl Hct 37.0 L (42.0-52.0) % Plt Count 263 (130-400) K/uL BMP 07/10/23 05:41 Sodium 140 Potassium 2.9 L Chloride 105 Carbon Dioxide 28 BUN 21 Creatinine 1.06 Glucose 93 Calcium 7.9 L Cardiac Enzymes 07/10/23 Range/Units 05:41 Total Creatine Kinase 2911 H (30-223) U/L Liver Function 07/10/23 Range/Units 05:41 Total Bilirubin 1.2 H (0.2-1.0) mg/dl AST 250 H (13-39) U/L ALT 81 H (7-52) U/L Alkaline Phosphatase 54 (34-104) U/L Albumin 3.5 (3.4-5.0) gm/dl Medications Administered Current Inpatient Medications Acetaminophen (Acetaminophen 500 Mg Tab) 500 mg PO Q6H PRN PRN Reason: fever/pain Stop: 08/06/23 21:09 Last Admin: 07/10/23 06:03 Dose: 500 mg Dextrose (Dextrose 50% 50 Ml Syringe) 25 - 50 ml IV UD PRN; Protocol PRN Reason: Hypoglycemia Protocol Stop: 08/06/23 21:27 Enoxaparin Sodium (Enoxaparin Inj 40 Mg/0.4 Ml Syr) 40 mg SQ Q24H [facility] Stop: 08/07/23 16:59 Last Admin: 07/09/23 17:00 Dose: 40 mg Glucagon (Glucagon For Inj 1 Mg Vial) 1 mg SQ UD PRN; Protocol PRN Reason: Hypoglycemia Protocol Stop: 08/06/23 21:27 Glucose (Glucose 10 Tab/Tube) 4 - 8 tab PO UD PRN; Protocol PRN Reason: Hypoglycemia Treatment Stop: 08/06/23 21:27 Glucose (Glucose 40% Gel 15 Gm Tube) 15 - 30 gm PO UD PRN; Protocol PRN Reason: Hypoglycemia Protocol Stop: 08/06/23 21:27 Promethazine HCl 6.25 mg/ (Sodium Chloride) 50.25 mls @ 201 mls/hr IV Q6H PRN PRN Reason: Nausea And Vomiting Stop: 08/06/23 21:09 Lorazepam 1 mg/ Syringe 1 mls @ 2 mls/min IV ONE PRN; Protocol PRN Reason: EtoH Withdrawal AWSS 6-10 Hydrocortisone Sodium (Succinate 50 mg/ Syringe) 1 mls @ 4 mls/min IV Q8H [facility] Stop: 08/07/23 13:59 Last Admin: 07/10/23 12:44 Dose: 4 mls/min Potassium Phosphate 24 mmol/ (Sodium Chloride) 508 mls @ 88 mls/hr IV ONE ONE Stop: 07/10/23 17:16 Last Admin: 07/10/23 11:55 Dose: 88 mls/hr Acetaminophen (Ofirmev) 1,000 mg in 100 mls @ 400 mls/hr IV Q8H PRN PRN Reason: Pain Stop: 07/13/23 14:01 Last Infusion: 07/10/23 14:30 Dose: Infused Insulin Aspart (Insulin Aspart Per Unit Charge) 0 units SC ACHS [facility] Stop: 08/06/23 21:27 Last Admin: 07/10/23 12:41 Dose: 2 units Insulin Glargine (Lantus Per Unit Charge) 0 units SQ BID [facility]; Protocol Stop: 08/09/23 20:59 Levothyroxine Sodium (Levothyroxine Sodium 100 Mcg Tablet) 100 mcg PO DAILYBB [facility] Stop: 08/09/23 06:29 Last Admin: 07/10/23 06:04 Dose: 100 mcg Miscellaneous (Carbohydrates For Hypoglycemia ) 15 - 30 gm PO UD PRN PRN Reason: Hypoglycemia Protocol Stop: 08/06/23 21:27 Miscellaneous Information (Pharmacy Glycemic Mgmt Consult) 1 each N/A UD PRN; Protocol PRN Reason: Consult Stop: 08/08/23 16:54
[2023-07-10] MEDS: ENOXAPARIN INJ 40 MG/0.4 ML SYR SQ SCH (18:03)
[2023-07-10 19:13] LABS: Calcium 7.7 mg/dl (8.6-10.3); Creatinine Clr Calc Pharmacy 66.1 ml/min; Est GFR (African American) 80.6 ml/min; Est GFR (Non-African American) 69.5 ml/min; Potassium 3.5 mmol/L (3.5-5.1)
[2023-07-10 19:44] LABS: BUN Creatinine Ratio 20.4 (10-20)
[2023-07-10] MEDS ORDERED: LANTUS PER UNIT CHARGE SQ SCH (21:00)
[2023-07-11] MEDS: HYDROCORTISONE SOD 50 MG in SYRINGE 0 ML IV SCH ×2 (01:00→13:37)
[2023-07-11] MEDS: LEVOTHYROXINE SODIUM 100 MCG TABLET PO SCH (04:46)
[2023-07-11 06:03] LABS: Basophils # (auto) 0.02 K/uL (0.00-0.20); Basophils % (auto) 0.2 %; Eosinophils # (auto) 0.03 K/uL (0.00-0.50); Eosinophils % (auto) 0.3 %; Hemoglobin 12.3 g/dl (14.0-18.0); Immature Granulocytes % (auto) 0.9 %; Lymphocytes # (auto) 0.42 K/uL (1.20-3.40); Mean Corpuscular Hemoglobin 32.8 pg (25.0-34.0); Mean Corpuscular Hgb Conc 34.2 g/dL (32.0-36.0); Mean Platelet Volume 9.7 fL (9.4-12.4); Monocytes # (auto) 0.81 K/uL (0.11-0.59); Monocytes % (auto) 7.7 %; Neutrophils # (auto) 9.18 K/uL (1.40-6.50); Neutrophils % (auto) 86.9 %; Platelet Count 236 K/uL (130-400); RDW Coefficient of Variation 13.5 % (11.5-14.5); RDW Standard Deviation 48.2 fL (36.4-46.3); Red Blood Count 3.75 M/uL (4.70-6.10); White Blood Count 10.56 K/ul (4.8-10.8)
[2023-07-11 06:18] LABS: Albumin Globulin Ratio 1.7 (0.9-2); Albumin Level 3.3 gm/dl (3.4-5.0); BUN Creatinine Ratio 26.3 (10-20); Bilirubin,Total 0.9 mg/dl (0.2-1.0); Calcium 7.4 mg/dl (8.6-10.3); Creatinine Clr Calc Pharmacy 81.5 ml/min; Est GFR (African American) 93.8 ml/min; Est GFR (Non-African American) 80.9 ml/min; Globulin 1.9 gm/dl (2.5-4.0); Magnesium 2.1 mg/dl (1.7-2.4); Phosphorus 1.8 mg/dl (2.5-4.9); Potassium 3.2 mmol/L (3.5-5.1); Total Protein 5.2 gm/dl (6.0-8.3)
[2023-07-11] MEDS ORDERED: POTASSIUM PHOS 3 MMOL/1 ML INFUSION IV STA (08:20)
[2023-07-11] MEDS ORDERED: POTASSIUM CHLORIDE CRTAB 20 MEQ TABCR PO STA (08:34)
--- NOTE | 2023-07-11 08:45 | Cardiology Progress Note ---
Date of Service July 11, 2023 Assessment & Plan (1) Rhabdomyolysis: (2) Elevated troponin: (3) Hypothyroidism: (4) Encephalopathy: (5) Altered level of consciousness: Plan Assessment: 87 year-old male found with decreased level of consciousness and altered mental status. Hypothermic, hypoxic, and noted to elevated troponin in the setting of Rhabdomyolysis for an unknown length of time. Significant elevation in TSH with known history of Grave's disease with unclear medication compliance, is awake and alert to person and place today. 1. Rhabdomyolysis: 2. Elevated troponin: - No reported cardiac history per review of medical record, patient able to confirm this today. - EKG with no acute ischemic changes, non-specific T wave change. Patient was unable to cooperate for echocardiogram to assess overall LVEF, structure and function. Recommend repeat EKG. -CK > 6000 on admission and Troponin 53.1 likely in the setting of myocardial strain related to Rhabdo. -Continue with IV fluid resuscitation, Electrolyte management with goals of serum K > 4.0, and Magnesium of 2.0 - patient continues to improve. Continues to deny and chest pain, pressure, palpitations, or anginal equivelent - Review of telemetry shows NSR with no acute events overnight. -At this time agree with continued electrolyte supplementation per primary team - No further cardiac testing is needed at this time and would not change course of care. 3. Hypothyroidism 4. Encephalopathy 5. Altered Level of consciousness: -Continues with improved mentation today. Awake, alert and oriented to person, and place. Able to provide details of his overall history (recently moving, where his brothers live), but no recall of the acute event. - Multi-factorial in the setting of Rhabdomyolysis, elevated WBC and lactate. Blood cultures pending. -Significant elevation of TSH; Endocrinology on consult -CT head with findings concerning of a tumor, confirmed by MRI, continued management by primary team Case has been discussed with Dr. Appiah. Further recommendations regarding plan of care as per his assessment. I spent a total of 30 minutes on the date of service in preparation, delivery, documentation of the care provided to the patient excluding any time spent in the performance of separately billed services. DIANA [facility] Admission and Anticipated Discharge Date Admission Date: July 07, 2023 Supervising Physician Co-Signing Physician Notes Supervising Physician Attestation: I have personally performed a history and physical examination on the patient. I agree with the MAXILLOFACIAL PROSTHODONTIST's findings and plan as documented with the following additions. Subjective: No coherent subjective input from patient today. Aguilera catheter in place draining clear yellow urine. Exam: Cardiovascular regular rhythm, no murmurs, no edema Data: Telemetry reveals sinus rhythm in The 60s. Potassium 3.3 CPK has trended down With measurement of 1,319 units/L today. Assessment and Plan: Mild troponin elevation, felt to be due to myocardial strain in setting of noncardiac illness. Hypokalemia, Hypophosphatemia -Patient already receiving potassium phosphate supplementation. -Cardiology to sign off. Call with questions or concerns. I spent a total of 20 minutes on the date of service in preparation, delivery, and documentation of the care provided to this patient, excluding any time spent in the performance of separately billed services. Magdiel Appiah, Subjective 07/11/23: Patient seen in follow up today. patient is awake and alert to person and place, but remains a flight of ideas and somewhat difficult to understand at times. Review of telemetry shows SR 70's. No acute events overnight. Denies any chest pain, pressure, palpitations, no pre-syncopal or syncopal symptoms. Serum phos and K is below target. Actively receiving Supplementaton. Review of Systems Review of Systems: All systems reviewed & are unremarkable except as noted in HPI & below Physical Exam Constitutional: well developed and well nourished Neck: normal visual inspection and trachea midline Respiratory: normal respiratory effort, lungs clear to auscultation Cardiovascular: RRR, no murmur, no edema Skin: no rashes, warm and dry Psychiatric: Orientation: alert, oriented to person and oriented to place Thought Process: + tangential thought process Results & Data Vital Signs (Past 12 Hours) Vital Signs Temp Pulse Pulse Resp BP Pulse Ox O2 Del Method 07/11/23 08:03 36.5 C 75 16 129/76 94 Room Air 07/11/23 07:56 72 07/11/23 04:20 36.6 C 72 18 151/77 H 96 Room Air 07/10/23 23:45 36.9 C 69 18 149/77 H 96 Room Air 07/10/23 22:30 Room Air 07/10/23 22:02 72 Laboratory Results Cardiac Enzymes 07/11/23 Range/Units 05:35 AST 157 H (13-39) U/L CBC 07/11/23 Range/Units 05:35 WBC 10.56 (4.8-10.8) K/ul RBC 3.75 L (4.70-6.10) M/uL Hgb 12.3 L (14.0-18.0) g/dl Hct 36.0 L (42.0-52.0) % Plt Count 236 (130-400) K/uL Neut # (Auto) 9.18 H (1.40-6.50) K/uL Lymph # (Auto) 0.42 L (1.20-3.40) K/uL Moca # (Auto) 0.81 H (0.11-0.59) K/uL Eos # (Auto) 0.03 (0.00-0.50) K/uL Baso # (Auto) 0.02 (0.00-0.20) K/uL Comprehensive Metabolic Panel 07/10/23 07/11/23 Range/Units 15:47 05:35 Sodium 139 140 (136-145) mmol/L Potassium 3.5 D 3.2 L (3.5-5.1) mmol/L Chloride 105 106 (98-107) mmol/L Carbon Dioxide 28 27 (21-32) mmol/L BUN 20 21 (6-23) mg/dl Creatinine 0.98 0.80 (0.6-1.4) mg/dl Glucose 130 H 127 H (70-99(Fasting)) mg/dl Calcium 7.7 L 7.4 L (8.6-10.3) mg/dl AST 157 H (13-39) U/L ALT 69 H (7-52) U/L Alkaline Phosphatase 47 (34-104) U/L Total Protein 5.2 L (6.0-8.3) gm/dl Albumin 3.3 L (3.4-5.0) gm/dl Intake and Output 07/10/23 07/11/23 07/11/23 22:59 06:59 14:59 Intake Total 928 / 1838 Output Total 500 / 1500 600 / 1500 Balance 428 / 338 -600 / 338 Intake: IV 508 / 1178 Potassium Phosphate 24 mmol In 508 / 508 Sodium Chloride 0.9% 500 ml @ 88 mls/hr IV ONE ONE Rx#: [id number] Oral 420 / 660 Output: Urine Amount (Catheter) 500 / 1100 600 / 1100 Aguilera/Indwelling 500 / 1100 600 / 1100 Other: Weight 97.5 kg Weight Measurement Method Built in [facility] (1) Rhabdomyolysis Rhabdomyolysis type: non-traumatic Qualified Code(s): M62.82 - Rhabdomyolysis (3) Hypothyroidism Hypothyroidism type: unspecified Qualified Code(s): E03.9 - Hypothyroidism, unspecified
[2023-07-11] MEDS ORDERED: POTASSIUM PHOSPHATE 24 MMOL in SODIUM CHLORIDE 0.9% 500 ML IV ONE (09:00)
[2023-07-11] MEDS: INSULIN ASPART PER UNIT CHARGE SC SCH ×4 (09:22→20:46)
[2023-07-11] MEDS: LANTUS PER UNIT CHARGE SQ SCH (12:01)
--- NOTE | 2023-07-11 12:29 | Hospitalist Progress Note ---
Date of Service July 11, 2023 Assessment & Plan (1) Encephalopathy: Plan Pt is an 87yoM with PMhx significant for history of Graves' disease status post GRIMES, hypothyroidism, DM 2 on oral medications, BPH, skin cancer as per records, past tobacco abuse admitted with encephalopathy. Encephalopathy Graves status post GRIMES Hypothyroidism Likely multifactorial TSH 35.558, T4 <0.[address] concerning for brain tumor, brain MRI confirming presence, likely a meningioma or schwannoma EEG- no seizures, notes encephalopathy White count was elevated to 21 K without any evidence of infection in UA or chest x-ray or CT of the abdomen Procalcitonin not elevated lactate initially elevated at 2.6 before being wnl after fluid resuscitation Started with intravenous Zosyn and vancomycin and blood cultures were obtained Blood cultures came back negative and antibiotics have been stopped Tox screen unremarkable Remains pleasantly confused but no acute delirium Likely discharge tomorrow Electrolyte imbalance Has low potassium and low phosphate We will replace it and monitor Suspected myxedema coma-has been ruled out Symptoms possibly from myxedema coma, pt has history of hypothyroidism s/p radioactive iodine for Graves' disease -Discussed with Endocrinology Dr Grider on 07/09 -Does not believe this is myxedema coma but states unsure of cause -Recommended reducing dose of levothyroxine to po 100mcg or IV 50mcg -Advised to discontinue hydrocortisone, ok to taper to half the dose over the next 24 hours before stopping completely -stated that it was of utmost importance pt's dispo to place that can ensure compliance with thyroid medication. PT currently recommending SNF Has been accepted to a facility but awaiting correction of the electrolytes before he can be discharged Meningioma/schwannoma MRI showed-There is an enhancing mass at the anterior basal frontal lobe extending into the temporal fossa. Oral appearance favors extra-axial process such as meningioma or schwannoma. Neurology consulted- advising metabolic encephalopathy. Brain mass not cause of symptoms No neurosurgery services in house- will likely need further evaluation for noted brain tumor. Will refer to neurosurgery as an outpatient Transitioned to po levothyroxine 100mcg, Endocrine noted no need to trend thyroid levels as will be variable Taper off hydrocortisone Will discontinue hydrocortisone tomorrow Possible cholecystitis-ruled out CT abd/pelvis with noted gallbladder with sludge and stones causing distention, general surgery consult placed-appreciate input and recommendation Elevated troponin Hs-trop elevated at 22.6 to 23.1 to 56.1 before downtrending to 53.1 EKG with NSR Echo could not be completed but did note no pericardial effusion Doubt [facility] Cardiology consult -trop elevation in setting of myocardial strain with current illness -no further cardiology intervention -likely pt will not cooperate with repeating the echo but can try again at a later time if he will cooperate/ Denies any more cardiac [place] [address] [place] admission, trended down to 10, 514. Now 6391 Continue IVF at 75 (will continue with cautious rate as echo could not be completed) CK level has been down to 2911 CK level has come down to 1319 -advised to drink more fluid Elevated liver enzymes Liver enzymes elevated AST 4x>ALT Alcohol level <10 Liver US ordered- noted distended gallbladder with sludge and stones CT abd/pelvis noting possible cystitis LFTs are improving and will monitor-AST came down to 157 and ALT 69 with normal alkaline phosphatase DMII Hgba1 of 7.1 with glucose in the 120s Basal bolus while hospitalized Hold home metformin Glycemic consult placed as pt is diabetic on steroids CODE STATUS: DNR/DNI DVT prophylaxis: Lovenox SQ Diet: Clear liquid Dispo: PT recommending SNF Admission and Anticipated Discharge Date Admission Date: July 07, 2023 Subjective 07/10/2023 The patient was seen and examined in medical telemetry unit He has been feeling much better today and denies any significant symptoms except right ankle pain and generalized pain which is very nonspecific Has been eating and drinking and feeding himself Denies any headache, blurred vision, any numbness and or tingling involving the extremities Remains generally weak 07/11/2023 The patient was seen and examined in medical telemetry unit He has been stable but pleasantly confused Denies any acute symptoms His electrolytes are out of the way and that is being replaced He is accepted to a facility but awaiting correction of electrolytes before he goes the Review of Systems Review of Systems: All systems reviewed and are unremarkable except as noted below Physical Exam Physical Exam: Lying in bed with acute distress secondary to pain in the right ankle and remains pleasantly confused Constitutional: well developed, well nourished, + ill appearing and average body habitus Eyes: PERRL, conjunctivae normal, anicteric sclerae ENMT: external ear and nose normal, oropharynx normal Respiratory: no respiratory distress Auscultation: lungs clear to auscultation bilaterally Cardiovascular: Rate/Rhythm: regular rate, regular rhythm and + tachycardic Heart Sounds: normal S1 and normal S2; no murmur Extremities: no edema Gastrointestinal (Abdomen): Inspection/Auscultation: normal bowel sounds; abdomen not distended Percussion/Palpation: abdomen soft; abdomen nontender Musculoskeletal: No acute pain involving any of the joint Neurologic: normal touch/pain/proprioception, moves all extremities and + focal motor deficit (Less power and movement involving the left-sided extremities) Lymphatic: no cervical or axillary lymphadenopathy Results & Data Results & Data Vital Signs (Past 12 Hours) Vital Signs Temp Pulse Pulse Resp BP Pulse Ox O2 Del Method 07/11/23 12:19 36.6 C 82 16 129/76 93 Room Air 07/11/23 08:03 36.5 C 75 16 129/76 94 Room Air 07/11/23 07:56 72 07/11/23 04:20 36.6 C 72 18 151/77 H 96 Room Air Laboratory Results Short CBC 07/11/23 Range/Units 05:35 WBC 10.56 (4.8-10.8) K/ul Hgb 12.3 L (14.0-18.0) g/dl Hct 36.0 L (42.0-52.0) % Plt Count 236 (130-400) K/uL BMP 07/10/23 07/11/23 15:47 05:35 Sodium 139 140 Potassium 3.5 D 3.2 L Chloride 105 106 Carbon Dioxide 28 27 BUN 20 21 Creatinine 0.98 0.80 Glucose 130 H 127 H Calcium 7.7 L 7.4 L Cardiac Enzymes 07/11/23 Range/Units 05:35 Total Creatine Kinase 1319 H (30-223) U/L Liver Function 07/11/23 Range/Units 05:35 Total Bilirubin 0.9 (0.2-1.0) mg/dl AST 157 H (13-39) U/L ALT 69 H (7-52) U/L Alkaline Phosphatase 47 (34-104) U/L Albumin 3.3 L (3.4-5.0) gm/dl Medications Administered Current Inpatient Medications Acetaminophen (Acetaminophen 500 Mg Tab) 500 mg PO Q6H PRN PRN Reason: fever/pain Stop: 08/06/23 21:09 Last Admin: 07/10/23 06:03 Dose: 500 mg Dextrose (Dextrose 50% 50 Ml Syringe) 25 - 50 ml IV UD PRN; Protocol PRN Reason: Hypoglycemia Protocol Stop: 08/06/23 21:27 Enoxaparin Sodium (Enoxaparin Inj 40 Mg/0.4 Ml Syr) 40 mg SQ Q24H [facility] Stop: 08/07/23 16:59 Last Admin: 07/10/23 18:03 Dose: 40 mg Glucagon (Glucagon For Inj 1 Mg Vial) 1 mg SQ UD PRN; Protocol PRN Reason: Hypoglycemia Protocol Stop: 08/06/23 21:27 Glucose (Glucose 10 Tab/Tube) 4 - 8 tab PO UD PRN; Protocol PRN Reason: Hypoglycemia Treatment Stop: 08/06/23 21:27 Glucose (Glucose 40% Gel 15 Gm Tube) 15 - 30 gm PO UD PRN; Protocol PRN Reason: Hypoglycemia Protocol Stop: 08/06/23 21:27 Promethazine HCl 6.25 mg/ (Sodium Chloride) 50.25 mls @ 201 mls/hr IV Q6H PRN PRN Reason: Nausea And Vomiting Stop: 08/06/23 21:09 Lorazepam 1 mg/ Syringe 1 mls @ 2 mls/min IV ONE PRN; Protocol PRN Reason: EtoH Withdrawal AWSS 6-10 Acetaminophen (Ofirmev) 1,000 mg in 100 mls @ 400 mls/hr IV Q8H PRN PRN Reason: Pain Stop: 07/13/23 14:01 Last Infusion: 07/10/23 14:30 Dose: Infused Hydrocortisone Sodium (Succinate 50 mg/ Syringe) 1 mls @ 4 mls/min IV Q12H [facility] Stop: 08/10/23 00:29 Last Admin: 07/11/23 01:00 Dose: 4 mls/min Potassium Phosphate 24 mmol/ (Sodium Chloride) 508 mls @ 88 mls/hr IV ONE ONE Stop: 07/11/23 14:46 Last Admin: 07/11/23 09:11 Dose: 88 mls/hr Insulin Aspart (Insulin Aspart Per Unit Charge) 0 units SC ACHS [facility] Stop: 08/06/23 21:27 Last Admin: 07/11/23 09:22 Dose: 2 units Insulin Glargine (Lantus Per Unit Charge) 5 units SQ QAM [facility] Stop: 08/10/23 08:59 Last Admin: 07/11/23 12:01 Dose: 5 units Levothyroxine Sodium (Levothyroxine Sodium 100 Mcg Tablet) 100 mcg PO DAILYBB [facility] Stop: 08/09/23 06:29 Last Admin: 07/11/23 04:46 Dose: 100 mcg Miscellaneous (Carbohydrates For Hypoglycemia ) 15 - 30 gm PO UD PRN PRN Reason: Hypoglycemia Protocol Stop: 08/06/23 21:27 Miscellaneous Information (Pharmacy Glycemic Mgmt Consult) 1 each N/A UD PRN; Protocol PRN Reason: Consult Stop: 08/08/23 16:54
--- NOTE | 2023-07-11 15:18 | Pharmacy Report ---
Pharmacy Glycemic Short Note 2 - Date of Service July 11, 2023 - Glycemic Short BSG Results (Last 24 hours): 07/10/23 07/10/23 07/10/23 15:47 16:46 19:51 Glucose 130 H POC Glucose 140 H 148 H 07/11/23 07/11/23 07/11/23 05:35 08:23 12:00 Glucose 127 H POC Glucose 129 H 179 H OUTPATIENT ANTIDIABETIC REGIMEN: * metformin 500 mg bid ASSESSMENT: 07/11: * Patient received total 13 units of insulin yesterday; 10 units basal and 3 units bolus. * Hydrocortisone dosing reduced from 50 mg IV q8h to 50 mg IV q12h last night. * Basal insulin was decreased from 5 units BID to 5 units daily in AM. * Pre-lunch BSG trended up to 179 mg/dl today. Novolog carb ratio tightened slightly. 07/10/23: * 87 year old admitted with encephalopathy. Stared on steroids, now tapering hydrocortisone dosing. Patient stable on current insulin regimen last couple of days. Plan to continue same parameters. Will add hold parameter for Lantus in case BSGs start to trend downward. PLAN FOR INPATIENT GLYCEMIC CONTROL: * Hold outpatient oral diabetes medications * Basal insulin * Lantus 5 units SQ QAM * Bolus insulin * NovoLog per scale ACHS or Q6hrs while NPO * Goal Range: Low 110 mg/dL - High 140 mg/dL * Correction Factor: 25 mg/dL/unit * Nutritional / Prandial insulin per carb ratio of 1 unit per 12 grams CHO consumed
[2023-07-11] MEDS: ENOXAPARIN INJ 40 MG/0.4 ML SYR SQ SCH (18:33)
[2023-07-12] MEDS: HYDROCORTISONE SOD 50 MG in SYRINGE 0 ML IV SCH ×2 (02:00→13:21)
[2023-07-12] MEDS: LEVOTHYROXINE SODIUM 100 MCG TABLET PO SCH (05:59)
--- NOTE | 2023-07-12 06:13 | Electrocardiogram Report ---
Test Reason : Blood Pressure : / mmHG Vent. Rate : 079 BPM Atrial Rate : 079 BPM P-R Int : 206 ms QRS Dur : 082 ms QT Int : 354 ms P-R-T Axes : 054 -14 109 degrees QTc Int : 405 ms Sinus rhythm with Premature supraventricular complexes Nonspecific ST and T wave abnormality Abnormal ECG When compared with ECG of 07-JUL-2023 16:44, Premature supraventricular complexes are now Present Nonspecific T wave abnormality, worse in Anterolateral leads Confirmed by Collin Orozco ([id number]) on 07/12/2023 6:13:15 AM Referred By: REFERRED SELF Confirmed By:Collin Orozco
[2023-07-12 08:26] LABS: BUN Creatinine Ratio 35.4 (10-20); Calcium 7.6 mg/dl (8.6-10.3); Creatinine Clr Calc Pharmacy 81.9 ml/min; Est GFR (African American) 94.2 ml/min; Est GFR (Non-African American) 81.3 ml/min; Magnesium 2.2 mg/dl (1.7-2.4); Phosphorus 1.9 mg/dl (2.5-4.9); Potassium 3.5 mmol/L (3.5-5.1)
[2023-07-12] MEDS ORDERED: POTASSIUM PHOS 3 MMOL/1 ML INFUSION IV STA (09:29)
[2023-07-12] MEDS: LANTUS PER UNIT CHARGE SQ SCH (09:30)
[2023-07-12] MEDS: INSULIN ASPART PER UNIT CHARGE SC SCH ×4 (09:30→20:44)
[2023-07-12] MEDS ORDERED: POTASSIUM PHOSPHATE 15 MMOL in SODIUM CHLORIDE 0.9% 250 ML IV ONE (09:45)
[2023-07-12] MEDS: POT PHOSPHATE MONOBASIC W/ SOD TAB PO SCH ×3 (13:46→20:42)
--- NOTE | 2023-07-12 14:27 | Hospitalist Progress Note ---
Date of Service July 12, 2023 Assessment & Plan (1) Encephalopathy: Plan Pt is an 87yoM with PMhx significant for history of Graves' disease status post GRIMES, hypothyroidism, DM 2 on oral medications, BPH, skin cancer as per records, past tobacco abuse admitted with encephalopathy. Acute metabolic encephalopathy Graves status post GRIMES Hypothyroidism Likely multifactorial TSH 35.558, T4 <0.[address] concerning for brain tumor, brain MRI confirming presence, likely a meningioma or schwannoma EEG- no seizures, notes encephalopathy White count was elevated to 21 K without any evidence of infection in UA or chest x-ray or CT of the abdomen Procalcitonin not elevated lactate initially elevated at 2.6 before being wnl after fluid resuscitation Started with intravenous Zosyn and vancomycin and blood cultures were obtained Blood cultures came back negative and antibiotics have been stopped Tox screen unremarkable Remains pleasantly confused but no acute delirium Likely discharge tomorrow Clinically much better and has baseline dementia but no acute delirium Electrolyte imbalance Has low potassium and low phosphate We will replace it and monitor Will continue with oral phosphate supplement and if the phosphate level has been increasing he will be discharged this afternoon Suspected myxedema coma-has been ruled out Symptoms possibly from myxedema coma, pt has history of hypothyroidism s/p radioactive iodine for Graves' disease -Discussed with Endocrinology Dr Grider on 07/09 -Does not believe this is myxedema coma but states unsure of cause -Recommended reducing dose of levothyroxine to po 100mcg or IV 50mcg -Advised to discontinue hydrocortisone, ok to taper to half the dose over the next 24 hours before stopping completely -stated that it was of utmost importance pt's dispo to place that can ensure compliance with thyroid medication. PT currently recommending SNF Has been accepted to a facility but awaiting correction of the electrolytes before he can be discharged Medically much better we will continue with current medication Meningioma/schwannoma MRI showed-There is an enhancing mass at the anterior basal frontal lobe extending into the temporal fossa. Oral appearance favors extra-axial process such as meningioma or schwannoma. Neurology consulted- advising metabolic encephalopathy. Brain mass not cause of symptoms No neurosurgery services in house- will likely need further evaluation for noted brain tumor. Will refer to neurosurgery as an outpatient Transitioned to po levothyroxine 100mcg, Endocrine noted no need to trend thyroid levels as will be variable Taper off hydrocortisone Will discontinue hydrocortisone tomorrow Will have appointment with a neurosurgeon as an outpatient Possible cholecystitis-ruled out CT abd/pelvis with noted gallbladder with sludge and stones causing distention, general surgery consult placed-appreciate input and recommendation Elevated troponin Hs-trop elevated at 22.6 to 23.1 to 56.1 before downtrending to 53.1 EKG with NSR Echo could not be completed but did note no pericardial effusion Doubt [facility] Cardiology consult -trop elevation in setting of myocardial strain with current illness -no further cardiology intervention -likely pt will not cooperate with repeating the echo but can try again at a later time if he will cooperate/ Denies any more cardiac [place] [address] [place] admission, trended down to 10, 514. Now 6391 Continue IVF at 75 (will continue with cautious rate as echo could not be completed) CK level has been down to 2911 CK level has come down to 1319 -advised to drink more fluid Elevated liver enzymes Liver enzymes elevated AST 4x>ALT Alcohol level <10 Liver US ordered- noted distended gallbladder with sludge and stones CT abd/pelvis noting possible cystitis LFTs are improving and will monitor-AST came down to 157 and ALT 69 with normal alkaline phosphatase Will have follow-up by the PCP DMII Hgba1 of 7.1 with glucose in the 120s Basal bolus while hospitalized Hold home metformin Glycemic consult placed as pt is diabetic on steroids CODE STATUS: DNR/DNI DVT prophylaxis: Lovenox SQ Diet: Clear liquid Dispo: PT recommending SNF Likely discharge this afternoon Admission and Anticipated Discharge Date Admission Date: July 07, 2023 Subjective 07/10/2023 The patient was seen and examined in medical telemetry unit He has been feeling much better today and denies any significant symptoms except right ankle pain and generalized pain which is very nonspecific Has been eating and drinking and feeding himself Denies any headache, blurred vision, any numbness and or tingling involving the extremities Remains generally weak 07/11/2023 The patient was seen and examined in medical telemetry unit He has been stable but pleasantly confused Denies any acute symptoms His electrolytes are out of the way and that is being replaced He is accepted to a facility but awaiting correction of electrolytes before he goes the 07/12/2023 The patient was seen and examined in medical telemetry unit He has been feeling much better but remains pleasantly confused Denies any significant symptoms He has been eating and drinking well Review of Systems Review of Systems: All systems reviewed and are unremarkable except as noted below Physical Exam Physical Exam: Lying in bed with acute distress secondary to pain in the right ankle and remains pleasantly confused Constitutional: well developed, well nourished, + ill appearing and average body habitus Eyes: PERRL, conjunctivae normal, anicteric sclerae ENMT: external ear and nose normal, oropharynx normal Respiratory: no respiratory distress Auscultation: lungs clear to auscultation bilaterally Cardiovascular: Rate/Rhythm: regular rate, regular rhythm and + tachycardic Heart Sounds: normal S1 and normal S2; no murmur Extremities: no edema Gastrointestinal (Abdomen): Inspection/Auscultation: normal bowel sounds; abdomen not distended Percussion/Palpation: abdomen soft; abdomen nontender Musculoskeletal: No acute arthritis involving any of the joint Neurologic: normal touch/pain/proprioception, moves all extremities and + focal motor deficit (Less power and movement involving the left-sided extremities) Lymphatic: no cervical or axillary lymphadenopathy Results & Data Results & Data Vital Signs (Past 12 Hours) Vital Signs Temp Pulse Pulse Resp BP Pulse Ox O2 Del Method 07/12/23 12:06 36.2 C L 71 18 157/81 H 90 Room Air 07/12/23 07:57 36.3 C L 72 16 152/78 H 95 Room Air 07/12/23 06:49 73 07/12/23 04:54 37.1 C 72 18 162/84 H 97 Room Air Laboratory Results [facility] 07/12/23 07:50 Sodium 142 Potassium 3.5 Chloride 107 Carbon Dioxide 29 BUN 28 H Creatinine 0.79 Glucose 121 H Calcium 7.6 L Medications Administered Current Inpatient Medications Acetaminophen (Acetaminophen 500 Mg Tab) 500 mg PO Q6H PRN PRN Reason: fever/pain Stop: 08/06/23 21:09 Last Admin: 07/10/23 06:03 Dose: 500 mg Dextrose (Dextrose 50% 50 Ml Syringe) 25 - 50 ml IV UD PRN; Protocol PRN Reason: Hypoglycemia Protocol Stop: 08/06/23 21:27 Enoxaparin Sodium (Enoxaparin Inj 40 Mg/0.4 Ml Syr) 40 mg SQ Q24H [facility] Stop: 08/07/23 16:59 Last Admin: 07/11/23 18:33 Dose: 40 mg Glucagon (Glucagon For Inj 1 Mg Vial) 1 mg SQ UD PRN; Protocol PRN Reason: Hypoglycemia Protocol Stop: 08/06/23 21:27 Glucose (Glucose 10 Tab/Tube) 4 - 8 tab PO UD PRN; Protocol PRN Reason: Hypoglycemia Treatment Stop: 08/06/23 21:27 Glucose (Glucose 40% Gel 15 Gm Tube) 15 - 30 gm PO UD PRN; Protocol PRN Reason: Hypoglycemia Protocol Stop: 08/06/23 21:27 Promethazine HCl 6.25 mg/ (Sodium Chloride) 50.25 mls @ 201 mls/hr IV Q6H PRN PRN Reason: Nausea And Vomiting Stop: 08/06/23 21:09 Lorazepam 1 mg/ Syringe 1 mls @ 2 mls/min IV ONE PRN; Protocol PRN Reason: EtoH Withdrawal AWSS 6-10 Acetaminophen (Ofirmev) 1,000 mg in 100 mls @ 400 mls/hr IV Q8H PRN PRN Reason: Pain Stop: 07/13/23 14:01 Last Infusion: 07/10/23 14:30 Dose: Infused Hydrocortisone Sodium (Succinate 50 mg/ Syringe) 1 mls @ 4 mls/min IV Q12H [facility] Stop: 08/10/23 00:29 Last Admin: 07/12/23 13:21 Dose: 4 mls/min Insulin Aspart (Insulin Aspart Per Unit Charge) 0 units SC ACHS [facility] Stop: 08/06/23 21:27 Last Admin: 07/12/23 13:20 Dose: 2 units Insulin Glargine (Lantus Per Unit Charge) 5 units SQ QAM [facility] Stop: 08/10/23 08:59 Last Admin: 07/12/23 09:30 Dose: 5 units Levothyroxine Sodium (Levothyroxine Sodium 100 Mcg Tablet) 100 mcg PO DAILYBB [facility] Stop: 08/09/23 06:29 Last Admin: 07/12/23 05:59 Dose: 100 mcg Miscellaneous (Carbohydrates For Hypoglycemia ) 15 - 30 gm PO UD PRN PRN Reason: Hypoglycemia Protocol Stop: 08/06/23 21:27 Miscellaneous Information (Pharmacy Glycemic Mgmt Consult) 1 each N/A UD PRN; Protocol PRN Reason: Consult Stop: 08/08/23 16:54 Potassium Phosphate (Pot Phosphate Monobasic W/ Sod Tab) 2 tab PO QID [facility] Stop: 08/11/23 12:59 Last Admin: 07/12/23 13:46 Dose: 2 tab
--- NOTE | 2023-07-12 14:48 | Pharmacy Report ---
Pharmacy Glycemic Sign Off Nt - Date of Service July 12, 2023 - Assessment & Plan ASSESSMENT: * Pharmacy was consulted by Dr Valladares on 07/09 for glycemic control and to write orders per [facility] inpatient glycemic control protocol. * Major changes made by pharmacy to antidiabetic regimen include: * adjusted basal with steroids * Patient has been receiving/requiring <20 units of insulin per day * Steroids now d/c today 07/12 PLAN FOR INPATIENT GLYCEMIC CONTROL: No changes needed to current regimen. * Hold further basal insulin unless steroids restarted * Continue NovoLog per scale ACHS/Q6hrs while NPO * Goal range = 110-140 mg/dl * CF = 25 mg/dl/unit * CR = 1 unit for ever 12 g CHO consumed * Pharmacy is signing off of glycemic consult and will no longer be making adjustments to inpatient regimen. Please feel free to re-consult if needed. Thank you.
[2023-07-12 15:05] LABS: BUN Creatinine Ratio 32.9 (10-20); Calcium 7.7 mg/dl (8.6-10.3); Creatinine Clr Calc Pharmacy 76.1 ml/min; Est GFR (African American) 91.4 ml/min; Est GFR (Non-African American) 78.9 ml/min; Phosphorus 2.8 mg/dl (2.5-4.9); Potassium 3.5 mmol/L (3.5-5.1)
[2023-07-12] MEDS: ENOXAPARIN INJ 40 MG/0.4 ML SYR SQ SCH (18:00)
[2023-07-13] MEDS: LEVOTHYROXINE SODIUM 100 MCG TABLET PO SCH (05:50)
[2023-07-13] MEDS: INSULIN ASPART PER UNIT CHARGE SC SCH ×4 (08:45→13:32)
[2023-07-13] MEDS: POT PHOSPHATE MONOBASIC W/ SOD TAB PO SCH ×2 (09:15→13:28)
--- NOTE | 2023-07-13 10:22 | Hospitalist Progress Note ---
Date of Service July 13, 2023 Assessment & Plan (1) Encephalopathy: Plan Pt is an 87yoM with PMhx significant for history of Graves' disease status post GRIMES, hypothyroidism, DM 2 on oral medications, BPH, skin cancer as per records, past tobacco abuse admitted with encephalopathy. Acute metabolic encephalopathy Graves status post GRIMES Hypothyroidism Likely multifactorial TSH 35.558, T4 <0.[address] concerning for brain tumor, brain MRI confirming presence, likely a meningioma or schwannoma EEG- no seizures, notes encephalopathy White count was elevated to 21 K without any evidence of infection in UA or chest x-ray or CT of the abdomen Procalcitonin not elevated lactate initially elevated at 2.6 before being wnl after fluid resuscitation Started with intravenous Zosyn and vancomycin and blood cultures were obtained Blood cultures came back negative and antibiotics have been stopped Tox screen unremarkable Remains pleasantly confused but no acute delirium Clinically much better and denies any acute symptoms No more delirium or acute and cephalopathy and he is back to his baseline of dementia Will be transferred to [facility] this afternoon Electrolyte imbalance Has low potassium and low phosphate We will replace it and monitor Will continue with oral phosphate supplement and if the phosphate level has been increasing he will be discharged this afternoon Electrolytes have been corrected and he was strongly advised to eat and drink as he is doing now Suspected myxedema coma-has been ruled out Symptoms possibly from myxedema coma, pt has history of hypothyroidism s/p radioactive iodine for Graves' disease -Discussed with Endocrinology Dr Grider on 07/09 -Does not believe this is myxedema coma but states unsure of cause -Recommended reducing dose of levothyroxine to po 100mcg or IV 50mcg -Advised to discontinue hydrocortisone, ok to taper to half the dose over the next 24 hours before stopping completely -stated that it was of utmost importance pt's dispo to place that can ensure compliance with thyroid medication. PT currently recommending SNF Has been accepted to a facility but awaiting correction of the electrolytes before he can be discharged Medically much better we will continue with current medication Meningioma/schwannoma MRI showed-There is an enhancing mass at the anterior basal frontal lobe extending into the temporal fossa. Oral appearance favors extra-axial process such as meningioma or schwannoma. Neurology consulted- advising metabolic encephalopathy. Brain mass not cause of symptoms No neurosurgery services in house- will likely need further evaluation for noted brain tumor. Will refer to neurosurgery as an outpatient Transitioned to po levothyroxine 100mcg, Endocrine noted no need to trend thyroid levels as will be variable Taper off hydrocortisone Will discontinue hydrocortisone tomorrow Will have appointment with a neurosurgeon as an outpatient Possible cholecystitis-ruled out CT abd/pelvis with noted gallbladder with sludge and stones causing distention, general surgery consult placed-appreciate input and recommendation No acute send Elevated troponin Hs-trop elevated at 22.6 to 23.1 to 56.1 before downtrending to 53.1 EKG with NSR Echo could not be completed but did note no pericardial effusion Doubt [facility] Cardiology consult -trop elevation in setting of myocardial strain with current illness -no further cardiology intervention -likely pt will not cooperate with repeating the echo but can try again at a later time if he will cooperate/ Denies any more cardiac [place] [address] [place] admission, trended down to 10, 514. Now 6391 Continue IVF at 75 (will continue with cautious rate as echo could not be completed) CK level has been down to 2911 CK level has come down to 1319 -advised to drink more fluid Elevated liver enzymes Liver enzymes elevated AST 4x>ALT Alcohol level <10 Liver US ordered- noted distended gallbladder with sludge and stones CT abd/pelvis noting possible cystitis LFTs are improving and will monitor-AST came down to 157 and ALT 69 with normal alkaline phosphatase Will have follow-up by the PCP DMII Hgba1 of 7.1 with glucose in the 120s Basal bolus while hospitalized Hold home metformin Glycemic consult placed as pt is diabetic on steroids CODE STATUS: DNR/DNI DVT prophylaxis: Lovenox SQ Diet: Clear liquid Dispo: PT recommending SNF Likely discharge this afternoon Admission and Anticipated Discharge Date Admission Date: July 07, 2023 Subjective 07/10/2023 The patient was seen and examined in medical telemetry unit He has been feeling much better today and denies any significant symptoms except right ankle pain and generalized pain which is very nonspecific Has been eating and drinking and feeding himself Denies any headache, blurred vision, any numbness and or tingling involving the extremities Remains generally weak 07/11/2023 The patient was seen and examined in medical telemetry unit He has been stable but pleasantly confused Denies any acute symptoms His electrolytes are out of the way and that is being replaced He is accepted to a facility but awaiting correction of electrolytes before he goes the 07/12/2023 The patient was seen and examined in medical telemetry unit He has been feeling much better but remains pleasantly confused Denies any significant symptoms He has been eating and drinking well 07/13/2023 The patient was seen and examined in medical telemetry unit He has been at his best for the last few days I have been seeing him Denies any significant symptoms Remains pleasantly confused Review of Systems Review of Systems: All systems reviewed and are unremarkable except as noted below Physical Exam Physical Exam: Lying in bed with acute distress secondary to pain in the right ankle and remains pleasantly confused Constitutional: well developed, well nourished, + ill appearing and average body habitus Eyes: PERRL, conjunctivae normal, anicteric sclerae ENMT: external ear and nose normal, oropharynx normal Respiratory: no respiratory distress Auscultation: lungs clear to auscultation bilaterally Cardiovascular: Rate/Rhythm: regular rate, regular rhythm and + tachycardic Heart Sounds: normal S1 and normal S2; no murmur Extremities: no edema Gastrointestinal (Abdomen): Inspection/Auscultation: normal bowel sounds; abdomen not distended Percussion/Palpation: abdomen soft; abdomen nontender Neurologic: normal touch/pain/proprioception, moves all extremities and + focal motor deficit (Less power and movement involving the left-sided extremities) Lymphatic: no cervical or axillary lymphadenopathy Results & Data Results & Data Vital Signs (Past 12 Hours) Vital Signs Temp Pulse Pulse Resp BP BP Pulse Ox 07/13/23 07:28 36.5 C 69 18 174/75 H 92 07/13/23 05:14 36.4 C L 49 L 20 92/50 L 97 07/13/23 01:05 36.5 C 67 16 153/86 H 95 07/13/23 01:04 74 O2 Del Method 07/13/23 07:28 Room Air 07/13/23 05:14 Room Air 07/13/23 01:05 Room Air 07/13/23 01:04 Laboratory Results [facility] 07/12/23 14:10 Sodium 141 Potassium 3.5 Chloride 107 Carbon Dioxide 29 BUN 28 H Creatinine 0.85 Glucose 142 H Calcium 7.7 L Medications Administered Current Inpatient Medications Acetaminophen (Acetaminophen 500 Mg Tab) 500 mg PO Q6H PRN PRN Reason: fever/pain Stop: 08/06/23 21:09 Last Admin: 07/10/23 06:03 Dose: 500 mg Dextrose (Dextrose 50% 50 Ml Syringe) 25 - 50 ml IV UD PRN; Protocol PRN Reason: Hypoglycemia Protocol Stop: 08/06/23 21:27 Enoxaparin Sodium (Enoxaparin Inj 40 Mg/0.4 Ml Syr) 40 mg SQ Q24H [facility] Stop: 08/07/23 16:59 Last Admin: 07/12/23 18:00 Dose: 40 mg Glucagon (Glucagon For Inj 1 Mg Vial) 1 mg SQ UD PRN; Protocol PRN Reason: Hypoglycemia Protocol Stop: 08/06/23 21:27 Glucose (Glucose 10 Tab/Tube) 4 - 8 tab PO UD PRN; Protocol PRN Reason: Hypoglycemia Treatment Stop: 08/06/23 21:27 Glucose (Glucose 40% Gel 15 Gm Tube) 15 - 30 gm PO UD PRN; Protocol PRN Reason: Hypoglycemia Protocol Stop: 08/06/23 21:27 Promethazine HCl 6.25 mg/ (Sodium Chloride) 50.25 mls @ 201 mls/hr IV Q6H PRN PRN Reason: Nausea And Vomiting Stop: 08/06/23 21:09 Lorazepam 1 mg/ Syringe 1 mls @ 2 mls/min IV ONE PRN; Protocol PRN Reason: EtoH Withdrawal AWSS 6-10 Acetaminophen (Ofirmev) 1,000 mg in 100 mls @ 400 mls/hr IV Q8H PRN PRN Reason: Pain Stop: 07/13/23 14:01 Last Infusion: 07/10/23 14:30 Dose: Infused Insulin Aspart (Insulin Aspart Per Unit Charge) 0 units SC ACHS [facility] Stop: 08/06/23 21:27 Last Admin: 07/13/23 10:01 Dose: 1 units Levothyroxine Sodium (Levothyroxine Sodium 100 Mcg Tablet) 100 mcg PO DAILYBB [facility] Stop: 08/09/23 06:29 Last Admin: 07/13/23 05:50 Dose: 100 mcg Miscellaneous (Carbohydrates For Hypoglycemia ) 15 - 30 gm PO UD PRN PRN Reason: Hypoglycemia Protocol Stop: 08/06/23 21:27 Potassium Phosphate (Pot Phosphate Monobasic W/ Sod Tab) 2 tab PO QID [facility] Stop: 08/11/23 12:59 Last Admin: 07/13/23 09:15 Dose: 2 tab
--- NOTE | 2023-07-26 11:48 | Discharge Summary ---
Date of Service July 26, 2023 Note foe 07/13/2023 Admission HPI Per Admitting Provider History obtained from ER provider, patient family, and records. Limited history from patient secondary to obtunded state Medical history significant for history of Graves' disease status post GRIMES, hypothyroidism, DM 2 on oral medications, BPH, skin cancer as per records,past tobacco abuse. [facility] on follow-up visit last February 2023 Outpatient TSH requested by PCP noted to be 39. Patient instructed by PCP to increase maintenance Levoxyl dose from 150 to 175 mcg daily and to have labs rechecked after 1 month. Unclear if patient able to comply. Patient resides by himself and has no other immediate family member in town. Patient brother who resides in [place] has been worried about patient since patient relocated to new apartment 3 months ago. Patient not answering his phone. Outpatient providers unable to reach patient on the phone as per documentation. Outpatient documentation of patient getting lost on the way to [facility] ophthalmology office. Patient brother had local police checked on patient last month. Although police missed patient at time of apartment visit, neighbors reassured police that patient was well. Patient has not been seen by his neighbors walking outside his home as he normally does the last few days. EMS alerted to check on patient today. Patient found at home to have decreased responsiveness and have snoring respiration. Hypothermic at 94 F. SBP 100s. BSG 100s. O2 sats 80s. Patient found to be naked and incontinent of foul-smelling urine. Patient brought to the ER for evaluation. Cefepime administered at the ER. Medical History as above Surgical History : Cataract surgeries, tonsillectomy/adenoidectomy Family History : Lung cancer, testicular cancer, bladder cancer, colon cancer, stroke Personal/Social history : Past tobacco abuse, occasional EtOH intake, lives by himself Admission Exam Per Admitting Provider Physical Exam: GENERAL: Obtunded, no respiratory distress SKIN: Normal color, cool HEENT: [place] palpebral conjunctivae, no ptosis, dry buccal mucosa NECK : Supple, no tenderness CHEST : Decreased breath sounds, no tenderness HEART : RRR, no obvious murmurs ABDOMEN: Some distention, nontender EXTREMITIES : No LE swelling/tenderness, no other conspicuous deformities noted NEUROLOGIC : Obtunded, no facial asymmetry, gait and stance not assessed Principal Diagnosis Acute metabolic and cephalopathy, hypothyroidism, type 2 diabetes, meningioma/schwanoma, dementia Discharge Exam Lying in bed with acute distress secondary to pain in the right ankle and remains pleasantly confused Constitutional well developed, well nourished, + ill appearing and average body habitus Eyes PERRL, conjunctivae normal, anicteric sclerae ENMT external ear and nose normal, oropharynx normal Respiratory no respiratory distress Auscultation: lungs clear to auscultation bilaterally Cardiovascular Rate/Rhythm: regular rate, regular rhythm and + tachycardic Heart Sounds: normal S1 and normal S2; no murmur Extremities: no edema Gastrointestinal (Abdomen) Inspection/Auscultation: normal bowel sounds; abdomen not distended Percussion/Palpation: abdomen soft; abdomen nontender Neurologic normal touch/pain/proprioception, moves all extremities and + focal motor deficit (Less power and movement involving the left-sided extremities) Lymphatic no cervical or axillary lymphadenopathy Discharge Data Allergies Allergy/AdvReac Type Severity Reaction Status Date / Time pollen extracts Allergy Sneezing Verified 07/07/23 17:43 Consultations 07/07/23 19:19 ED Decision to Admit Stat 07/07/23 21:05 Consult Endocrinology Routine 07/08/23 16:08 Consult Neurology Routine 07/08/23 19:01 Consult Cardiology Routine 07/09/23 08:52 Consult General Surgery Routine Ordered Studies 07/07/23 16:43 CT head/brain wo con Stat 07/07/23 21:09 CT angio head w con Stat 07/08/23 05:57 MR brain wo/w con Routine 07/08/23 16:58 CT Abd and Pelvis [CT abd pelvis IV con only] Routine 07/09/23 liver Urgent Hospital Course (1) Encephalopathy: Plan Pt is an 87yoM with PMhx significant for history of Graves' disease status post GRIMES, hypothyroidism, DM 2 on oral medications, BPH, skin cancer as per records, past tobacco abuse admitted with encephalopathy. Acute metabolic encephalopathy Graves status post GRIMES Hypothyroidism Likely multifactorial TSH 35.558, T4 <0.[address] concerning for brain tumor, brain MRI confirming presence, likely a meningioma or schwannoma EEG- no seizures, notes encephalopathy White count was elevated to 21 K without any evidence of infection in UA or chest x-ray or CT of the abdomen Procalcitonin not elevated lactate initially elevated at 2.6 before being wnl after fluid resuscitation Started with intravenous Zosyn and vancomycin and blood cultures were obtained Blood cultures came back negative and antibiotics have been stopped Tox screen unremarkable Remains pleasantly confused but no acute delirium Clinically much better and denies any acute symptoms No more delirium or acute and cephalopathy and he is back to his baseline of dementia Will be transferred to [facility] this afternoon Electrolyte imbalance Has low potassium and low phosphate We will replace it and monitor Will continue with oral phosphate supplement and if the phosphate level has been increasing he will be discharged this afternoon Electrolytes have been corrected and he was strongly advised to eat and drink as he is doing now Suspected myxedema coma-has been ruled out Symptoms possibly from myxedema coma, pt has history of hypothyroidism s/p radioactive iodine for Graves' disease -Discussed with Endocrinology Dr Grider on 07/09 -Does not believe this is myxedema coma but states unsure of cause -Recommended reducing dose of levothyroxine to po 100mcg or IV 50mcg -Advised to discontinue hydrocortisone, ok to taper to half the dose over the next 24 hours before stopping completely -stated that it was of utmost importance pt's dispo to place that can ensure compliance with thyroid medication. PT currently recommending SNF Has been accepted to a facility but awaiting correction of the electrolytes before he can be discharged Medically much better we will continue with current medication Meningioma/schwannoma MRI showed-There is an enhancing mass at the anterior basal frontal lobe extending into the temporal fossa. Oral appearance favors extra-axial process such as meningioma or schwannoma. Neurology consulted- advising metabolic encephalopathy. Brain mass not cause of symptoms No neurosurgery services in house- will likely need further evaluation for noted brain tumor. Will refer to neurosurgery as an outpatient Transitioned to po levothyroxine 100mcg, Endocrine noted no need to trend thyroid levels as will be variable Taper off hydrocortisone Will discontinue hydrocortisone tomorrow Will have appointment with a neurosurgeon as an outpatient Possible cholecystitis-ruled out CT abd/pelvis with noted gallbladder with sludge and stones causing distention, general surgery consult placed-appreciate input and recommendation No acute send Elevated troponin Hs-trop elevated at 22.6 to 23.1 to 56.1 before downtrending to 53.1 EKG with NSR Echo could not be completed but did note no pericardial effusion Doubt ACS Cardiology consult -trop elevation in setting of myocardial strain with current illness -no further cardiology intervention -likely pt will not cooperate with repeating the echo but can try again at a later time if he will cooperate/ Denies any more [place] [address] [place] admission, trended down to 10, 514. Now 6391 Continue IVF at 75 (will continue with cautious rate as echo could not be completed) CK level has been down to 2911 CK level has come down to 1319 -advised to drink more fluid Elevated liver enzymes Liver enzymes elevated AST 4x>ALT Alcohol level <10 Liver US ordered- noted distended gallbladder with sludge and stones CT abd/pelvis noting possible cystitis LFTs are improving and will monitor-AST came down to 157 and ALT 69 with normal alkaline phosphatase Will have follow-up by the PCP DMII Hgba1 of 7.1 with glucose in the 120s Basal bolus while hospitalized Hold home metformin Glycemic consult placed as pt is diabetic on steroids CODE STATUS: DNR/DNI DVT prophylaxis: Lovenox SQ Diet: Clear liquid Dispo: PT recommending SNF Likely discharge this afternoon Total Time Total Time Spent Total Time Spent (In Minutes): 35 minutes Discharge Plan Discharge Items Patient Disposition: Transfer Detention Fac Reason For Visit: ENCEPHELOPATHY, MYXEDEMA COMA Discharge Diagnosis: Acute metabolic and cephalopathy, hypothyroidism, type 2 diabetes, meningioma/schwanoma, dementia Condition on Discharge: Fair Activity: Resume your previous activity Non-emergency contact: Primary Care Provider Call non-emergency contact if: you have any medication questions and your symptoms worsen Follow-up/Referrals: Naseem Art MD [Primary Care Provider] - (Please make an appointment with your PCP within 7 days following discharge from the facility) Diet: Carb Consistent or DM2 Addtl Attending Provider Instructions: Please take precautions to avoid falls Take your medications as advised You need to be nonurgent follow-up with the neurosurgery as an outpatient Please have your liver function and TSH checked in 4 to 6 weeks Pending Studies at Discharge: No Stand-Alone Forms: My [facility] Skilled Items Patient informed of condition?: Yes DNR: Yes Discharge Level of Care: Other Communicable Disease: No Discharge Prognosis: Stable Lines: None Urinary Catheter: No Medications and DC Order Prescriptions: New levothyroxine [Synthroid] 100 mcg Tablet 100 mcg PO DAILYBB Qty: 30 0RF Phospha 250 Neutral 250 mg Tablet 2 tab PO BID Qty: 60 0RF Continued metformin 500 mg tablet 500 mg PO BIDM Rx Instructions: Take with breakfast & supper. Last filled 02/17/2023 for 90 days. alendronate 70 mg tablet 70 mg PO WE Rx Instructions: Last filled 03/04/2023 for 28 days acetaminophen [Tylenol Extra Strength] 500 mg Tablet 1,000 mg PO Q6 PRN (Reason: Pain) docusate sodium 100 mg Capsule 100 mg PO AMHS Discontinued levothyroxine 150 mcg tablet 150 mcg PO QAM Rx Instructions: Filled 11/06/2022 for 90 days Discharge Orders: Discharge Order (Routine); Ordered 07/13/23 Ordered By: Cynthia Cardozo/Other Patient Handouts: Managing Type 2 Diabetes Admission Data Admit Date/Time: 07/07/23 21:04 Attending Provider: Cynthia Whitley Admit Provider: Juan C Rice Primary Care Provider: Naseem Art Other Providers: Thuan Gamez; Juan C Rice; Alannah Chirinos Matthew D.; [place],[facility] [place]; [facility],; [facility] Other Interventions: Discharge Summary Assessment (RN) Last Done: 07/13/23 10:33
== END 2023-07-13 13:47 | DRG 643 ==
LOC: ED 16:29 → SUPCPDRO 21:04 → EDINP 21:04 → SUATTDRO 21:04 → 2N 07-08 15:25